=== PATIENT | male | born 1945 | race Caucasian/White ===

== ENCOUNTER → 2023-08-26 11:13 | Outpatient (REF) | payer MEDICARE, SELFPAY ==
[2023-08-26 12:12] LABS: % Eosinophils 2.7 % (0-6); % Immature Granulocytes 0.2 % (0-0.5); % Lymphocytes 29.7 % (20.5-51.1); % Monocytes 10.2 % (1.7-9.3); % Neutrophils 56.2 % (42.2-75.2); Absolute Eosinophils 0.1 10^3/uL (0-0.7); Absolute Lymphocytes 1.2 10^3/uL (1.2-3.4); Absolute Monocytes 0.4 10^3/uL (0.1-0.6); Absolute Neutrophils 2.3 10^3/uL (1.4-6.5); Hematocrit 45.1 % (39.0-52.0); Hemoglobin 15.2 g/dL (13.0-18.0); Mean Corp Hgb Conc. 33.7 g/dL (33.0-37.0); Mean Corpuscular Volume 91.9 fL (80.0-94.0); Nucleated Red Blood Cells % 0 % (-); Platelet Count 173 10^3/uL (130-400); Red Blood Cell Count 4.91 10^6/uL (4.70-6.10); Red Cell Dist. Width 13.2 % (11.5-14.5); White Blood Cell Count 4.1 10^3/uL (4.8-10.8)
[2023-08-26 12:33] LABS: NT-proBNP 299 pg/ml
[2023-08-26 12:36] LABS: ALT (SGPT) 27 U/L (0-50); AST (SGOT) 32 U/L (17-59); Albumin 4.4 g/dl (3.5-5.0); Alkaline Phosphatase 84 U/L (38-126); Blood Urea Nitrogen 19 mg/dl (9-20); Calcium 9.4 mg/dl (8.4-10.2); Carbon Dioxide 28 mmol/L (22-30); Chloride 106 mmol/L (98-107); Glucose 126 mg/dl (70-99); HDL Cholesterol 38 mg/dl; LDL Cholesterol, Calculated 100 mg/dl; Potassium 4.7 mmol/L (3.5-5.1); Sodium 140 mmol/L (135-145); Total Bilirubin 1.2 mg/dl (0.2-1.3); Total Cholesterol 163 mg/dl (50-199); Total Protein 7.5 g/dl (6.3-8.2); Triglyceride 128 mg/dl (10-149); Very Low Density Lipoprotein 25 mg/dl (0-30); eGFR > 60.00
[2023-08-26 13:06] LABS: PSA, Total - Screen 1.73 ng/ml (0.0-4.0); TSH 4.15 uIU/ml (0.47-4.68)
[2023-08-26 13:41] LABS: Urine Albumin Negative (Neg - Trace); Urine Bilirubin Negative (Negative); Urine Character Clear (Clear); Urine Color Yellow; Urine Glucose Negative (Negative); Urine Ketone Negative (Negative); Urine Leukocyte 1+ (Negative); Urine Nitrite Negative (Negative); Urine Occult Blood Trace (Negative); Urine Specific Gravity 1.015 (<1.030); Urine Urobilinogen Negative (Neg - 1+)
[2023-08-26 13:59] LABS: Urine Bacteria Few (Negative); Urine Red Blood Cell None Seen /HPF (0-2); Urine White Cell 0-2 /HPF (0-5)
[2023-08-27 11:06] LABS: Glycohemoglobin (HgbA1c) 7.1 % (4.0-5.6)
== END ==
LOC: REG 11:13
PROVIDERS: Internal Medicine Cardiovascular Disease; ATTENDING PHYSICIAN Internal Medicine
DX: I25.10 Atherosclerotic heart disease of native coronary artery without angina pectoris (principal); E66.01 Morbid (severe) obesity due to excess calories; K21.9 Gastro-esophageal reflux disease without esophagitis; I48.0 Paroxysmal atrial fibrillation; N40.1 Benign prostatic hyperplasia with lower urinary tract symptoms; Z12.5 Encounter for screening for malignant neoplasm of prostate; R73.09 Other abnormal glucose
CPT/HCPCS: 36415; 80053; 80061; 81003; 81015; 83036; 83880; 84443; 85025; G0103

== ENCOUNTER → 2023-09-16 12:36 | Outpatient (REF) | payer MEDICARE, SELFPAY | LOC: RCS 12:36 | PROVIDERS: ATTENDING PHYSICIAN Internal Medicine Cardiovascular Disease; FAMILY PHYSICIAN Internal Medicine | DX: I25.10 Atherosclerotic heart disease of native coronary artery without angina pectoris (principal); Z95.0 Presence of cardiac pacemaker; I48.0 Paroxysmal atrial fibrillation; Z79.01 Long term (current) use of anticoagulants | CPT/HCPCS: 93306 ==

== ENCOUNTER → 2023-09-20 11:26 | Outpatient (REF) | payer MEDICARE, SELFPAY | LOC: DHCBC/DCA 11:26 | PROVIDERS: ATTENDING PHYSICIAN Internal Medicine Cardiovascular Disease; FAMILY PHYSICIAN Internal Medicine | DX: I25.10 Atherosclerotic heart disease of native coronary artery without angina pectoris (principal); E78.2 Mixed hyperlipidemia; Z98.61 Coronary angioplasty status | CPT/HCPCS: 78452; 93017; A9500; J2785 ==

== ENCOUNTER 2023-10-11 00:50 | Inpatient (IN) | payer MEDICARE, SELFPAY ==
[2023-10-10] VITALS (12 sets, daily range): BP systolic 111–166; BP diastolic 70–98; BMI 35.5
[2023-10-10] MEDS: LOW STRENGTH ASPIRIN 324 MG PO (22:06)
[2023-10-10] MEDS: NITROSTAT (SUBLINGUAL) 0.400000000000000022 MG SL ×3 (22:06→22:29)
[2023-10-10 22:08] LABS: % Eosinophils 2.7 % (0-6); % Immature Granulocytes 0.2 % (0-0.5); % Lymphocytes 34.7 % (20.5-51.1); % Monocytes 13.3 % (1.7-9.3); % Neutrophils 48.1 % (42.2-75.2); Absolute Basophils 0.1 10^3/uL (0-0.2); Absolute Eosinophils 0.1 10^3/uL (0-0.7); Absolute Lymphocytes 1.8 10^3/uL (1.2-3.4); Absolute Monocytes 0.7 10^3/uL (0.1-0.6); Absolute Neutrophils 2.5 10^3/uL (1.4-6.5); Hematocrit 39.6 % (39.0-52.0); Hemoglobin 13.9 g/dL (13.0-18.0); Mean Corp Hgb Conc. 35.1 g/dL (33.0-37.0); Mean Corpuscular Hgb 31.2 pg (27.0-31.0); Mean Corpuscular Volume 88.8 fL (80.0-94.0); Mean Platelet Volume 9.4 fL (7.4-10.4); Nucleated Red Blood Cells % 0 % (-); Platelet Count 170 10^3/uL (130-400); Red Blood Cell Count 4.46 10^6/uL (4.70-6.10); White Blood Cell Count 5.1 10^3/uL (4.8-10.8)
[2023-10-10 22:21] LABS: ALT (SGPT) 26 U/L (0-50); AST (SGOT) 33 U/L (17-59); Albumin 4.4 g/dl (3.5-5.0); Alkaline Phosphatase 86 U/L (38-126); Blood Urea Nitrogen 20 mg/dl (9-20); Calcium 9.6 mg/dl (8.4-10.2); Carbon Dioxide 28 mmol/L (22-30); Chloride 102 mmol/L (98-107); Glucose 117 mg/dl (70-99); Potassium 4.3 mmol/L (3.5-5.1); Sodium 139 mmol/L (135-145); Total Bilirubin 1.1 mg/dl (0.2-1.3); Total Protein 7.4 g/dl (6.3-8.2); eGFR > 60.00
[2023-10-10] MEDS: NITROSTAT (SUBLINGUAL) SL (22:21)
[2023-10-10 22:22] LABS: APTT 34.6 Sec (23.4-35.0)
--- NOTE | 2023-10-10 22:34 | ED.GENMED ---
History of Present Illness
General
Chief Complaint: Chest Pain
Source: patient and family
Exam Limitations: none
Time Seen by Provider: 10/10/23 21:56
Travel History
Have you had any contact with someone who has COVID-19?: No
Do you have any symptoms of coronavirus? Fever > 100 degrees, chills, cough, shortness of breath, sore throat, loss of taste or smell, muscle aches, or headache?: No
History of Present Illness
History of Present Illness:
78-year-old male who presents with chest pain radiating to his jaw. Patient states he has a pain in his jaw. The pain did occur last night but he took his medications and fell asleep. The patient states that today he seemed to be okay but about
an hour prior to arrival he developed chest discomfort and pain in his jaw. He decided to come here for further evaluation. Pain is about an 8 out of 10.
Past History
Past History
ED Past Medical History: Arrthythmia (Atrial fib o Xarelto), CAD, HTN, Hypercholesterolemia and Other (hemmerhoids, diverticulosis, coronary artery disease status post stent, recent UTI, Bacterial Pneumonia, Shingles); Negative Cancer, CHF, COPD or
CVA
ED Past Surgical History: Appendectomy, Cardiac (stent), Orthopedic (R shoulder surg) and Other (Kidney surg,); Negative Bowel resection or Brain
Social History
Tobacco: Non-smoker
Alcohol: Occasional
Personal:
Living: with family
Employment: Employed
Family History
Family History: Diabetes and Other (Parostate CA, Alzheimer's)
Phy Exam
Physical Exam
Physical Exam:
CONSTITUTIONAL Patient alert and oriented to person, place and time. Well-appearing. Vital signs reviewed.
HEAD atraumatic, normocephalic.
EYES eyelids normal to inspection, Pupils equally round and reactive to light, Extraocular muscles intact, Conjunctiva normal, Sclera normal.
NECK normal range of motion, Trachea midline, no jugular venous distention.
RESPIRATORY CHEST No respiratory distress noted, Chest expansion equal, Bilateral breath sounds clear.
CARDIOVASCULAR regular rate and rhythm, Heart sounds normal.
ABDOMEN abdomen nontender, Bowel sounds normal. No distention.
BACK normal inspection, no obvious deformities
UPPER EXTREMITY range of motion normal, Motor strength normal, no cyanosis, no edema.
LOWER EXTREMITY range of motion normal, Motor strength normal, no cyanosis, no edema.
NEURO Speech normal, No focal motor deficits, [place] coma scale 15, Memory normal, Cranial Nerves intact to screening exam.
SKIN skin warm, dry, and normal in color.
.
Scores
Heart Score for Chest Pain Patients
STEMI patient?: No
History: Highly Suspicious
ECG: Significant ST-Depression
Age: >/= 65 years
Risk Factors: >/= 3 Risk Factors or History of CAD
Troponin: >1 - <3 x Normal Limit
Heart Score for Chest Pain Patients: 9
Heart Score Risk: 72.7 % MACE over next 6 weeks
Course
Orders/Labs/Results
Orders:
Orders
10/10/23 21:46
Electrocardiogram (*1) Urgent
Reason for Study: Chest Pain
10/10/23 21:47
EKG- Treatment ONCE
10/10/23 22:02
CMP [Comprehensive Metabolic Panel] Urgent
Complete Blood Count/With Diff Urgent
NT-proBNP Urgent
Comment: ADDED
PTT Urgent
Troponin I Urgent
10/10/23 22:05
Aspirin Chewable [Low Strength Aspirin] 324 mg PO NOW STA
10/10/23 22:06
Nitroglycerin Sublingual [Nitrostat (Sublingual)] 0.4 mg SL NOW STA
10/10/23 22:10
Nitroglycerin Sublingual [Nitrostat (Sublingual)] 0.4 mg SL [id number] PRN
03/24/24 22:25
ECG [Electrocardiogram (*1)] Urgent
Reason for Study: Chest Pain
EKG- Treatment ONCE
10/10/23 22:30
Add On- LAB Urgent
Tests Added?: bnp
10/10/23 22:41
Heparin 4,000 units IV NOW STA
Nursing to Place Non Medication Order As Directed
Physician Order: PTT 6 hours after initial start of Heparin infusion
Above order entered?: Yes
10/10/23 22:42
Metoprolol [Lopressor] 2.5 mg IV NOW STA
Nitroglycerin 100 mg/250 ml [Nitroglycerin Premix] 100 mg in 250 ml IV NOW
Initial dose in mcg/min, then titrate:: 5
Titrate to keep:: SBP < 160 mmHg
Titrate by mcg/min:: 5 mcg/min, may increase by 10 mcg/min if dose > 20 mcg/min
Frequency of titrations (minutes):: every 3-5 minutes
Maximum dose in mcg/min:: 200
Begin to taper infusion when:: Remained at goal for 2hrs
Taper by mcg/min:: 5 mcg/min
Frequency of taper (minutes) if patient maintains goal:: 30
Taper to off?: Yes
If infusion off & no longer maintaining goal:: Contact Provider
10/10/23 22:45
Heparin 49632 Units/250 ml 25,000 units in 250 ml IV PER PROTOCOL
Weight to be used for heparin protocol in kilograms (kg):: 118.5
Protocol:: Cardiac Tx/Acute Coronary
PTT Goal Range to be used:: PTT 73 to 111 seconds
Order type:: Initial
INITIAL Infusion Dose (UNITS/KG/hr) & then follow protocol:: 12 units/kg/hr
Infusion Dose in UNITS/hr & then follow protocol (UNITS/hr):: 1,000
INFUSION RATE in mL/hr & then follow protocol (mL/hr):: 10
PTT less than or equal to 64 seconds:: Increase rate by 200 units/hr (+ 2 mL/hr)
PTT 64.1 to 72.9 seconds:: Increase rate by 100 units/hr (+ 1 mL/hr)
PTT 73 to 111 seconds:: Target Range. No change in rate.
PTT 111.1 to 130.9 seconds:: Decrease rate by 100 units/hr (- 1 mL/hr)
PTT 131 to 199.9 seconds:: HOLD for 1 hr. Then decrease rate by 200 units/hr (- 2 mL/hr)
PTT greater than or equal to 200 seconds:: HOLD for 2 hrs & Notify Provider. Then decrease by 200 units/hr (-
2 mL/hr)
Lab follow-up:: Each change, PTT q6h until 2 consecutive are therapeutic. Then PTT
daily.
10/11/23 00:07
Admit/Transfer Patient As Directed
Co-Sign Provider:
Level of Care: Inpatient admission
Assign to:: IVU
Physician / Group: Davina/Hospitalist
Diagnosis: NSTEMI/ACS
Reason for Hospitalization: NSTEMI/ACS
Expected length of stay greater than two midnights?: Yes
ELOS- Estimated Length of Stay in days: 3
I certify the patient meets the requirements for IP care: Yes
10/11/23 00:13
Code Status As Directed
Resuscitation Status: Full Code
10/11/23 00:36
CR Chest Portable - 1 View Urgent
Comment:
Reason For Exam: cp
Reason Study Needs to be Portable: Patient Unstable
10/11/23 01:13
Electrocardiogram (*1) Q6H
Reason for Study: Chest Pain
Comment: at admission and Q3H for total of 3, to be done with each troponin
10/11/23 01:20
Troponin I Q3H
Comment: at admit & Q3H for 3 total including ED draws, obtain ECG with each level
10/11/23 01:47
0.9% Sodium Chloride 1000 ml [Nss] 1,000 ml IV 75 mls/hr
Nitroglycerin 100 mg/250 ml [Nitroglycerin Premix] 100 mg in 250 ml IV PER PROTOCOL
Currently infusing. Continue current dose and titrate:: Yes
Titrate to keep:: Chest Pain Free
Titrate by mcg/min:: 5 mcg/min, may increase by 10 mcg/min if dose > 20 mcg/min
Frequency of titrations (minutes):: 3-5 minutes
Maximum dose in mcg/min:: 200
Begin to taper infusion when:: Other
Begin to taper infusion when (other):: when patient has remained at goal for 24 hours
Taper by mcg/min:: 5 mcg/min
Frequency of taper (minutes) if patient maintains goal:: 30
Taper to off?: Yes
If infusion off & no longer maintaining goal:: Contact Provider
10/11/23 01:47
CARDIOLOGY CONSULT Routine
Consulting Provider: Nathan Mario
Was physician already notified: Yes
Reason for consult: NSTEMI/ACS/CP on NTG gtt/Hep gtt
Case Management Consult ONCE
Case Management Consult: Discharge Planning
Heparin Protocol- PTT Orders As Directed
PTT per Heparin protocol: -Obtain CBC and baseline PTT - if not already collected.
-Obtain PTT 6 hours from start of infusion. Then, every 6 hours until 2 consecutive
PTT's are therapeutic. Then, PTT Daily.
-With each rate change, obtain PTT every 6 hours until 2 consecutive PTT's are
therapeutic. Then, PTT Daily.
Activity As Directed
Activity Level: With Assistance
INT (Intravenous Needle Therapy) As Directed
Comment: maintain peripheral IV access
Intake/ Output As Directed
Frequency: Per unit guidelines
Notify MD As Directed
Notify physician if: PTT is greater than or equal to 200.
Pneumatic Compression Sleeves As Directed
Type: Knee high
Vital Signs As Directed
Frequency: q4h
Weight As Directed
Frequency: Daily
O2 Therapy [RESP] Routine
Nasal Cannula Liter Flow: 2 LPM
Titrate/Wean O2 to maintain O2 sat greater than (%): 90
Special Instructions: 2 liters/minute as needed for pulse oximetry less than 90%
Pulse Ox/spot Check [RESP] Routine
Quantity: 1
Special Instructions: on admission and then every shift if on oxygen
DX Deep Vein Thrombosis Video Routine
10/11/23 01:54
Lorazepam [Ativan] 0.5 mg PO HS PRN
10/11/23 04:13
Troponin I Q3H
Comment: at admit & Q3H for 3 total including ED draws, obtain ECG with each level
10/11/23 05:00
PTT Routine
10/11/23 Breakfast
NPO
Allow oral meds: Yes
Allow clear liquids: No
Basic Metabolic Panel IN AM
Complete Blood Count/No Diff IN AM
10/11/23 07:00
Levothyroxine [Synthroid] 50 mcg PO DAILY@0700
10/11/23 07:13
Electrocardiogram (*1) Q6H
Reason for Study: Chest Pain
Comment: at admission and Q3H for total of 3, to be done with each troponin
Troponin I Q3H
Comment: at admit & Q3H for 3 total including ED draws, obtain ECG with each level
10/11/23 08:00
Aspirin Chewable [Low Strength Aspirin] 81 mg PO DAILY
Carvedilol [Coreg] 3.125 mg PO BID
Rosuvastatin Calcium [Crestor] 40 mg PO DAILY
Sertraline HCl [Zoloft] 100 mg PO DAILY
10/11/23 13:13
Electrocardiogram (*1) Q6H
Reason for Study: Chest Pain
Comment: at admission and Q3H for total of 3, to be done with each troponin
10/13/23 06:00
Complete Blood Count/No Diff Q2D
Comment: notify provider: Platelet count < 130,000 or decrease by 50% from baseline
10/15/23 06:00
Complete Blood Count/No Diff Q2D
Comment: notify provider: Platelet count < 130,000 or decrease by 50% from baseline
10/17/23 06:00
Complete Blood Count/No Diff Q2D
Comment: notify provider: Platelet count < 130,000 or decrease by 50% from baseline
10/19/23 06:00
Complete Blood Count/No Diff Q2D
Comment: notify provider: Platelet count < 130,000 or decrease by 50% from baseline
10/21/23 06:00
Complete Blood Count/No Diff Q2D
Comment: notify provider: Platelet count < 130,000 or decrease by 50% from baseline
10/23/23 06:00
Complete Blood Count/No Diff Q2D
Comment: notify provider: Platelet count < 130,000 or decrease by 50% from baseline
10/25/23 06:00
Complete Blood Count/No Diff Q2D
Comment: notify provider: Platelet count < 130,000 or decrease by 50% from baseline
10/27/23 06:00
Complete Blood Count/No Diff Q2D
Comment: notify provider: Platelet count < 130,000 or decrease by 50% from baseline
Abnormal Lab Results
10/10/23
22:02
RBC 4.46 L 10^6/uL
(4.70-6.10)
MCH 31.2 H pg
(27.0-31.0)
Absolute Monos (auto) 0.7 H 10^3/uL
(0.1-0.6)
Monocytes % 13.3 H %
(1.7-9.3)
Glucose 117 H mg/dl
(70-99)
Troponin I 0.119 H* ng/ml
10/10/23 22:02
10/10/23 22:02
Vital Signs
Initial and Last Documented VS:
Initial Vital Signs
Pulse Resp Pulse Ox
73 13 96
10/10/23 21:53 10/10/23 21:53 10/10/23 21:53
Last Documented Vital Signs
Temp Pulse Resp BP Pulse Ox
97.8 F 70 16 106/72 96
10/11/23 01:57 10/11/23 01:30 10/11/23 01:57 10/11/23 01:30 10/11/23 01:57
MDM/Problems Addressed
MDM/Problems Addressed:
Unstable angina
*Pulse Oximetry
Patient hypoxic: no
*EKG
Interpreted by ED Provider?: Yes
Interpretation: abnormal
Rate: normal
Rhythm: av sequential
Ischemia: non-specific ST changes
*[employer] Interpretation
Rate: normal
Interpretation: abnormal
Rhythm: av sequential
*Critical Care Note
Total Time (30-74mins, 75-104mins- exclusive of procedures): 80 minutes
Data Reviewed
Review of Other/Old Records Reveals: Discharge Summary (Discharge summary from 2021 reviewed) and Other (Prior EKGs reviewed)
Source: patient and family
Further Testing Considered But Not Given:
Considered CT but suspect ACS as an etiology
Patient Management
Discussion with other providers: [employer] Operator (Case discussed with Dr. Mcwilliams) and Other (Case discussed with )
Escalation/DeEscalation of care consider admission/obs:
78-year-old with history of coronary disease who presents with chest pain and jaw pain. EKG certainly changed but is AV paced. Case was discussed with Dr. Green shortly after arrival and decision made to attempt to make the patient pain-free.
Patient is seen improvement with each dose of nitroglycerin. On reevaluation his pain is just about gone. Will trial IV nitroglycerin. Add heparin. Treat with aspirin and beta-blockade. Will continue to reassess and if pain persists or worsens
will again discussed with interventional cardiology. Case was also discussed with DCA. Agrees with plan thus far and will continue to monitor closely.
ED Attending Note
-
Portions of this chart may have been created with voice recognition software.� Occasional wrong word or��sound alike� substitutions may have occurred due to the inherent limitations of voice recognition software.
Discharge Plan
Departure
Patient Disposition: Admit
Date of Disposition: 10/10/23
Time of Disposition: 22:56
Admit to: IVU
Presentation/result/management discussed w/ accepting MD/DO: Hospitalist
Discharge Problem:
Acute coronary syndrome
Interventions
Interventions:
*Risk Screen - Suicide Last Done: 10/10/23 22:12
*General Assessment Last Done: 10/10/23 22:12
*Neglect/Abuse Screening Last Done: 10/10/23 22:12
ED- Fall Risk Assessment Last Done: 10/10/23 22:12
*ED COVID-19 Vaccine History Last Done: 10/10/23 22:12
*Nursing Disposition Last Done: 10/11/23 01:40
ED- Cardiac Assessment Last Done: 10/10/23 22:12
Discharge Date and Time
Discharge Date/Time: 10/11/23 01:40
[2023-10-10 22:38] LABS: Troponin I 0.119 ng/ml
[2023-10-10] MEDS: HEPARIN 4000 UNITS IV (22:51)
[2023-10-10] MEDS: LOPRESSOR 2.5 MG IV (22:51)
[2023-10-10] MEDS: NITROGLYCERIN PREMIX 250 IV (22:53)
[2023-10-10] MEDS: HEPARIN 25000 UNITS/250 ML IV (22:53)
[2023-10-10 23:00] LABS: NT-proBNP 444 pg/ml
--- NOTE | 2023-10-10 23:26 | HPS.HSE ---
Family Physician
-
Family Physician: Abelardo Strickland
Chief Complaint
-
CP
History of Present Illness
The patient is a 78 yo male with PMH significant for CAD, cardiac stents, pacemaker, A.fib on Xarelto, HTN, HLD, solitary kidney presents to the ED due to chest pain that started last night. He took an ativan and fell asleep, slept through the
night, and then started having substernal chest pain at rest radiating to his jaw both sides this evening again. Pain was persistent so he came to ED. Not associated with SOB nor palpitation, no fevers, no chills, no n/v/d, no abdominal complaints.
He had recent stress test and echocardiogram as per below. He has EKG changes in ED, trop elevated at 0.119, pain is persistent and patient started on ntg gtt titrated up to 20 with currently 0/10 pain. Cardiology discussed the patient with ED
provider.
ED txt:
aspirin 324, Lopressor 2.5 IV once, NTG gtt, NTG SL, Heparin gtt
Medical History
Past Medical History
Past Medical History: Reports Arrhythmia (A.fib on Xarelto), CAD, HTN, Hypercholesterolemia, Hypothyroidism and Other (diverticulosis, coronary artery disease status post stent, recent UTI, Bacterial Pneumonia, Shingles, solitary kidney)
Past Surgical History: Reports Appendectomy, Cardiac (stent), Orthopedic (right shoulder) and Other (kidney surgery decades ago for stones (congenital solitary kidney))
Social History
Tobacco: Non-smoker
Alcohol: Occasional
Personal:
Living: With Family
Family History
Family History: Cancer (prostate), Diabetes and Other (Alzheimers)
Allergies / Home Medications
Allergies reflects when Allergies were last updated in [facility] [employer]
Home Medications with original date entered in [facility]
Allergy/Medication List:
Allergies
Allergy/AdvReac Type Severity Reaction Status Date / Time
No Known Allergies Allergy Verified 06/25/22 15:22
Home Medications
carvedilol 6.25 mg tablet 3.125 mg PO BID Heart disease/condition 03/23/11
levothyroxine 50 mcg tablet (Euthyrox) 50 mcg PO DAILY@0700 Thyroid 12/22/21
sertraline 100 mg tablet 100 mg PO DAILY Mental Health/Anxiety 12/22/21
Lorazepam 0.5 mg PO HS PRN anxiety 12/30/21
rosuvastatin 10 mg tablet 40 mg PO DAILY High cholesterol 12/30/21
rivaroxaban 20 mg tablet (Xarelto) 20 mg PO HS Blood clot prevention/tx ##0 12/31/21
Review of Systems
-
A 12 point ROS was completed and negative except as noted: Yes
Physical Exam
Vital Signs
Vital Signs
Temp Pulse Resp BP Pulse Ox
98 F 72 18 117/73 95
10/10/23 21:55 10/10/23 22:45 10/10/23 22:45 10/10/23 22:45 10/10/23 22:45
Physical Exam
General: Well Developed, Well Nourished and No Apparent Distress
HEENT: NormoCephalic, Anicteric and Moist mucous membranes
Respiratory: Clear
Cardiac: S1/S2 and Regular Rhythm
GI: Soft, Non Tender, Non Distended and Normal Bowel Sounds
Musculoskeletal: No Clubbing, No Cyanosis and No Edema
Skin: Warm and Dry
Neuro: AO x 3 and No Motor Deficits
Psych: Calm
Laboratory Results
-
10/10/23 22:02
10/10/23 22:02
Laboratory Results
APTT Cancelled 10/10/23 22:41
Total Bilirubin 1.1 mg/dl (0.2-1.3) 10/10/23 22:02
AST 33 U/L (17-59) 10/10/23 22:02
ALT 26 U/L (0-50) 10/10/23 22:02
Alkaline Phosphatase 86 U/L (38-126) 10/10/23 22:02
Troponin I 0.119 ng/ml H* 10/10/23 22:02
Data Reviewed
-
Medical Tests (Nuc Med, Echo, EKG etc): Image Personally Visualized and interpreted (AV paced ST changes from prior) and Report Reviewed by me
Impression/Plan
-
IMPRESSION:The patient is a 78 yo male with PMH significant for CAD, cardiac stents, pacemaker, A.fib on Xarelto, HTN, HLD, solitary kidney presents to the ED due to chest pain that started last night. He took an ativan and fell asleep, slept
through the night, and then started having substernal chest pain at rest radiating to his jaw both sides this evening again. He has EKG changes in ED, trop elevated at 0.119, Cardiology discussed the patient with ED provider.
ED txt:
aspirin 324, Lopressor 2.5 IV once, NTG gtt, NTG SL, Heparin gtt
#ACS concerning for NSTEMI - persistent chest pain despite NTG gtt, CP currently 0/10 after uptitration of NTG gtt
-Admit IVU telemetry monitoring
-Cardiology (Oj and Fabiano notified) discussed with ED provider: If CP persists or returns, Guidera to take to supervisor dental laboratory tonight. Currently pt is CP free.
-will keep NPO, gentle IVF
-cont NTG gtt per protocol
-hold Xarelto and continue heparin gtt
-serial EKG, serial trop
-aspirin, beta maria ines, statin
Chronic medical issues:
#CAD s/p PCI to ramus- Coronary artery disease with previous LAD stenting in 2001, redo LAD stenting in 2014 and ramus stenting in 2020.
-Echo 09/16/23 - EF 50-55%, normal LV, mild concentric left ventricular hypertrophy, pacer wire RV & RA, no sign valvular dx
-Nuclear Stress 09/20/23 Inconclusive EKG for ischemia given pharmacological study, fixed defect in basal inferoseptal, mild inferoseptal, apex and apical inferior segments c/w infarction vs soft tissue attenuation, EF 52% normal systolic fxn,
moderate risk study 1-3% [place] or /year)
#Hyperglycemia-HgbA1C recently 7.1, monitor repeat glucose in am, many need SSI
#Hypothyroidism
-continue Synthroid
#Mixed HLD
-statin
#Hx Renal Calculi
#Long-term use of anticoagulation
#Obesity
#Paroxysmal atrial fibrillation with chronic oral anticoagulant therapy
-continue coreg
-hold Xarelto on hep gtt
#Congenital solitary kidney
#MAURO
#Essential HTN
#Non reversible symptomatic bradycardia. LINQ was implanted in September of 2021 Status post dual-chamber permanent pacemaker implant, 12/30/2021
#History of syncope and falls with prior subdural hematoma
#Status post LINQ explant, 12/30/2021.
#Depression
DVT proph-hep gtt
Full Code
[2023-10-11] VITALS (26 sets, daily range): BP systolic 101–149; BP diastolic 56–96; BMI 33.9
[2023-10-11] MEDS: NSS 1000 IV ×2 (02:41→13:54)
--- NOTE | 2023-10-11 03:47 | PTCARENOTE ---
Received from the ED at 0150. Denies any chest pain or discomfort. NTG drip infusing at 20 mcg/min, Heparin infusing at 1000 units/hr. A-V Paced on the monitor. Aware he is NPO xcept po meds. Fine expiratory wheeze at times, patient stated he has
post nasal drip. Sleeping at present.
[2023-10-11 05:18] LABS: Hematocrit 36.1 % (39.0-52.0); Hemoglobin 12.3 g/dL (13.0-18.0); Mean Corp Hgb Conc. 34.1 g/dL (33.0-37.0); Mean Corpuscular Hgb 31.1 pg (27.0-31.0); Mean Corpuscular Volume 91.4 fL (80.0-94.0); Mean Platelet Volume 9.8 fL (7.4-10.4); Platelet Count 142 10^3/uL (130-400); Red Blood Cell Count 3.95 10^6/uL (4.70-6.10); Red Cell Dist. Width 13.1 % (11.5-14.5)
[2023-10-11 05:31] LABS: APTT 138.6 Sec (23.4-35.0)
[2023-10-11 05:44] LABS: Blood Urea Nitrogen 21 mg/dl (9-20); Calcium 9.1 mg/dl (8.4-10.2); Carbon Dioxide 23 mmol/L (22-30); Chloride 107 mmol/L (98-107); Estimated Creatinine Clearance 116 ml/min; Glucose 124 mg/dl (70-99); Sodium 138 mmol/L (135-145); eGFR > 60.00
[2023-10-11] MEDS: SYNTHROID 50 MCG PO (07:26)
[2023-10-11] MEDS: LOW STRENGTH ASPIRIN 81 MG PO (09:18)
[2023-10-11] MEDS: COREG 3.125 MG PO ×2 (09:19→20:27)
[2023-10-11] MEDS: ZOLOFT 100 MG PO (09:19)
[2023-10-11] MEDS: CRESTOR 40 MG PO (09:19)
--- NOTE | 2023-10-11 09:45 | CON.CAR ---
Addendum entered and electronically signed by Oziel Aguirre DO 10/11/23 11:09:
I saw and examined the patient.
The Energy Specialist's note was reviewed and I agree with the note.
Comment:
Plan:
Presentation consistent with NSTEMI with trop 8 and trending.
Cont to trend until peak
Cont IV heparin
EKG with AV pacing.
IV nitro
Check echo
Discussed left heart cath to eval coronary anatomy. He has hx of multivessel PCI. He is agreeable.
Reviewed with interventional cardiology.
HPI: Patient came to [facility] last night with chest pain that started on Wednesday and cardiology is consulted for NSTEMI. Patient says that he read a stressful letter on Wednesday and then developed a substernal chest pain. The pain would come and go and
radiated to his jaw. The pain became increasingly intense and then was constant so he came to [facility] last night. Initial Troponin was 0.119 and is now up to 8.04. He had ongoing pain with heparin gtt so a Nitro gtt was started and he is now pain free.
Patient with a h/o PCI. He complained of fatigue at office visit 07/15/23 and was sent to echo and Lexiscan mibi as noted above.
Original Note:
Consultation
Consultation Request
Date/Time Consultation Requested: 10/11/23 at 0147
Date/Time Consultation Performed: 10/11/23 at 0900
Requesting Provider: Dr. Patricio
Performing Provider: Dr. Aguirre
Reason for Consultation: Chest pain, NSTEMI
Medical History
-
History of Present Illness:
Patient came to [facility] last night with chest pain that started on Wednesday and cardiology is consulted for NSTEMI. Patient says that he read a stressful letter on Wednesday and then developed a substernal chest pain. The pain would come and go and
radiated to his jaw. The pain became increasingly intense and then was constant so he came to [facility] last night. Initial Troponin was 0.119 and is now up to 8.04. He had ongoing pain with heparin gtt so a Nitro gtt was started and he is now pain free.
Patient with a h/o PCI. He complained of fatigue at office visit 07/15/23 and was sent to echo and Kamillean mibi as noted above.
PMH:
CAD
s/p LAD PCI 2001
s/p LAD PCI 03/2015
Ramus PCI 2019
s/p Medtronic DC PPM 2021
Non reversible symptomatic bradycardia
Paroxysmal Afib
Chronic Xarelto OAC, last dose 10/10/23 PM
Solitary Kidney
obesity
HTN
HLD
MAURO
Depression
Past Medical History
Past Medical History: Other (in HPI)
Past Surgical History: Appendectomy, Cardiac (PPM 12/2021, LAD and Ramus PCI) and Tonsilectomy
Social History
Tobacco: Former Smoker
Alcohol: Occasional (2-3 times a week)
Drug: None
Personal:
Living: With Family
Employment: Retired (retired from pharm)
Family History
Family History: CAD, Diabetes and Hypertension
Allergies / Home Medications
Allergy/AdvReac Type Severity Reaction Status Date / Time
No Known Allergies Allergy Verified 06/25/22 15:22
Medication Instructions Recorded Confirmed Type
carvedilol 6.25 mg tablet 3.125 mg PO BID Heart 03/23/11 10/11/23 History
disease/condition
levothyroxine 50 mcg tablet 50 mcg PO DAILY@0700 Thyroid 12/22/21 10/11/23 History
(Euthyrox)
sertraline 100 mg tablet 100 mg PO DAILY Mental 12/22/21 10/11/23 History
Health/Anxiety
Lorazepam 0.5 mg PO HS PRN anxiety 12/30/21 10/11/23 History
rosuvastatin 10 mg tablet 40 mg PO DAILY High cholesterol 12/30/21 10/11/23 History
rivaroxaban 20 mg tablet (Xarelto) 20 mg PO HS Blood clot 12/31/21 10/11/23 Rx
prevention/tx ##0
Review of Systems
-
History Source: Patient
All other systems: Negative unless noted
Physical Exam
Vital Signs
Temp Pulse Resp BP Pulse Ox
97.7 F 70 18 111/75 94
10/11/23 07:27 10/11/23 09:19 10/11/23 07:27 10/11/23 09:19 10/11/23 07:27
GEN: NAD, AAOx3
HEENT: EOMI, MMM
LUNGS: CTA B/L, no wheezes or rales
CV: Reg, no murmur
ABD: soft, BS+, NT, ND
EXT: No clubbing, cyanosis, lesions or edema B/L
NEURO: Gross non-focal
SKIN: Warm, dry and pink. No rash
Lab Results
10/11/23 05:04
10/11/23 05:04
Troponin I 8.040 ng/ml H* D 10/11/23 08:51
Rxi-H-Lhpeucebzvv Pept 444 pg/ml 10/10/23 22:02
Impression / Plan
-
PCP: Abelardo Kendrick MD
CDY: Scott Mcgrath MD
IMPRESSION:
Chest pain
NSTEMI, Troponin 8.04 and trending
CAD
s/p LAD PCI 2001
s/p LAD PCI 03/2015
Ramus PCI 2019
s/p Medtronic DC PPM 2021
Non reversible symptomatic bradycardia
Paroxysmal Afib
Chronic Xarelto OAC, last dose 10/10/23 PM
Solitary Kidney
obesity
HTN
HLD
MAURO
Depression
Lexiscan mibi 09/21/23: EF 52%, mildly decreased perfusion that is fixed in the basal inferoseptal segment, mid inferoseptal segement apex and apical inferior segments consistent with infarction vs soft tissue attenuation and improved with prone
imaging
Echo 09/16/23: EF 50-55%, mild conc LVH, no significant valve disease
PLAN:
-Patient came to [facility] last night with chest pain that started on Wednesday and cardiology is consulted for NSTEMI. Patient says that he read a stressful letter on Wednesday and then developed a substernal chest pain. The pain would come and go and
radiated to his jaw. The pain became increasingly intense and then was constant so he came to [facility] last night. Initial Troponin was 0.119 and is now up to 8.04. He had ongoing pain with heparin gtt so a Nitro gtt was started and he is now pain free.
Patient with a h/o PCI. He complained of fatigue at office visit 07/15/23 and was sent to echo and Lexiscan mibi as noted above.
-Chest pain that has improved on Heparin and Nitro gtt overnight
-Troponin trending up to 8.04 this AM
-ECG reviewed by me is paced
-Talked with patient about cardiac cath given chest pain, elevated Troponin and h/o CAD and he is agreeable.
-Last dose of Xarelto was last night
- EF was preserved by echo 09/16/23. Recheck limited study
-Cont usual dose of Coreg 3.125 mg BID
-Check CVE. Cont usual dose of Crestor 40 mg daily
[2023-10-11 11:26] LABS: HDL Cholesterol 31 mg/dl; LDL Cholesterol, Calculated 44 mg/dl; Total Cholesterol 102 mg/dl (50-199); Triglyceride 137 mg/dl (10-149); Very Low Density Lipoprotein 27 mg/dl (0-30)
--- NOTE | 2023-10-11 12:19 | CM ---
spoke to pt in room, he is prev indep, lives with his in an apt with an elevator. he denies any dc planning needs. he uses a cane when needed. plan is for dc to home when medically stable.
--- NOTE | 2023-10-11 13:27 | ITS.CL.CATH ---
Process Chemist - Catheterization
Cardiac Catheterization
Procedure Report:
CARDIAC CATHETERIZATION REPORT
Date of Procedure: 10/11/2023
Referring: Oziel Aguirre DO
Indication: Non-STEMI (troponin 8.0)
HEMODYNAMIC DATA
AO: 125/72
LV: 125/17
LEFT VENTRICULOGRAPHY: Mid inferior hypokinesis with EF 49%
CORONARY ANGIOGRAPHY
Dominance: Right
Left Main: Normal
LAD: There is a long stented segment extending from the proximal LAD into the mid vessel with no significant restenosis. There is 40% in the mid LAD distal to the stented segment
Circumflex: There is a large previously stented ramus intermedius branch with no restenosis in the stented segment. There is mild luminal disease in the circumflex system
RCA: The RCA is dominant with mild luminal irregularities. The PDA is a small to medium sized vessel and the RCA terminates with two right posterolateral branches-the small first right posterolateral branch has 70% proximal stenosis and the
significantly larger second right posterolateral branch has mild luminal disease.
Closure Device: None-the procedure was performed via the right radial artery. The Kamlesh's test was normal prior to the procedure.
Radiation (mGy): 348
DAP (cm2.Gy): 24.5
Fluoroscopy time: 3.2 minutes
CONCLUSIONS
1: Non-STEMI presentation (troponin 8)
2: Mid inferior hypokinesis with EF 49%
3. CAD as described above. The stents remotely placed in the LAD and ramus intermedius branches remain patent. The culprit for his non-STEMI was likely the small first right posterolateral branch. Prefer to treat this small branch vessel
medically
Copy to: Scott Mcgrath MD, Abelardo Strickland,
Braxton Mcwilliams MD, [facility], [facility]
--- NOTE | 2023-10-11 16:09 | W.PN.HOSP.TC ---
Addendum entered and electronically signed by Gerry Patricio MD 10/11/23 21:49:
Attending Addendum-
I saw and evaluated the patient. I reviewed the resident�s note and agree with findings and plan as documented in the resident�s note. Complains of PUCKETT and flushing, Full 12 point ROS reviewed and negative except as documented Exam: gen NAD heart
irreg irreg lungs clear abd soft LE no edema Plan:
# ACS/NSTEMI/CAD- cath 10/10- Dr. Mcwilliams reviewed notes, culprit PL branch RCA- cont medical management, asa BB statin, appreciate cards input monitor on tele, trops trending down, CBC BMP in am
# Atrial fib- cont xarelto, rate controlled with coreg, monitor on tele
# DM- recently diagnosed, attempted lifestyle modification, last a1c 7.1, will likely start metformin as OP hold as just had cath, cont SSI accucheck q ac q hs cont gentle fluids- BMP in am
# HLD- cont meds
# HTN- cont meds
# Hypothyroidism- cont meds
# Anxiety- prn ativan- would avoid use as OP
# Depression- cont meds
Dispo- likely DC in am
Time spent coordinating care, review of plan of care with resident, review of records, med rec, consults, notes, labs, rads, d/w nursing � 51 mins
Original Note:
Documented by User: Domingo Waterman MD, Resident 10/11/23 17:47
Today's Communication/Plan
-
Cardiac catheterization 10/11/2023
Low-dose insulin sliding scale
Monitor blood glucose
Assessment / Plan
Assessment / Plan
Impression
Acute coronary syndrome concerning of non-STEMI
Hyperglycemia
Headaches
Hypothyroidism
Hyperlipidemia
Paroxysmal atrial fibrillation
Pacemaker placement
Plan :
Acute coronary syndrome concerning of non-STEMI
Chest pain-free
Continue gentle IVF
Left heart cardiac catheterization on 10/11/23
Continue IV nitroglycerin
IV heparin
Monitor serial troponin levels
Serial EKG
Possible d/c tomorrow if the patient remains asymptomatic
Cardiac catherization CONCLUSIONS-
1: Non-STEMI presentation (troponin 8)
2: Mid inferior hypokinesis with EF 49%
3.� CAD as described above.� The stents remotely placed in the LAD and ramus intermedius branches remain patent.� The culprit for his non-STEMI was likely the small first right posterolateral branch.� Prefer to treat this small branch vessel
medically
Hyperglycemia
Started on low-dose insulin sliding scale
A1c 7.1, blood glucose 127
Monitor blood glucose level
Headaches
Potentially due to nitroglycerin
Ordered Tylenol
Hypothyroidism
Continue Synthroid
Hyperlipidemia
Continue statin
Paroxysmal atrial fibrillation
continue carvedilol for rate control
Hold Xarelto
#Permanent pacemaker on 12/30/21
DVT prophylaxis-heparin
Anticipated Discharge: 24 - 48 hours
Subjective/Interval History
-
Date of Service: October 11, 2023
Patient complains of headache.
Patient was diagnosed with diabetes mellitus type 2 Per PCP. He was tested 2 months ago and was advised metformin per PCP.Patient was more keen on diabetic teaching and exercise approach rather than taking medication
Objective Data
-
Labs:
Laboratory Results
10/11/23 10/11/23 10/11/23
05:04 05:05 12:45
WBC 5.0
Hgb 12.3 L
Hct 36.1 L
Plt Count 142
APTT 138.6 H Pending
Sodium 138
Potassium 4.0
Chloride 107
Carbon Dioxide 23
BUN 21 H
Creatinine 0.7
Glucose 124 H
Calcium 9.1
Vital Signs:
Vital Signs
Temp Pulse Resp BP Pulse Ox
97.7 F 70 18 109/64 98
10/11/23 15:41 10/11/23 12:00 10/11/23 15:41 10/11/23 11:16 10/11/23 15:41
I&O
10/10/23 10/11/23 10/12/23
06:59 06:59 06:59
Intake Total 300 / 300 473.0 / 473.0
Output Total 200 / 200
Balance 300 / 300 273.0 / 273.0
Review of Systems
-
History Source: Patient
All other systems: Reviewed and negative (Except mentioned)
Neuro: Reports Headache
Physical Exam
-
General: Well Developed and Well Nourished
HEENT: Normocephalic and Atraumatic
Respiratory: Clear to Auscultation
Cardiac: Regular Rhythm and S1/S2
GI: Soft, Nontender and Nondistended
Musculoskeletal: No Edema
Skin: Other (Flushed face potentially due to nitroglycerin)
Neuro: AO x 3
Psych: Calm
Data Reviewed
-
Labs: Labs Reviewed by me and Discussed with Physician

Documented by User: Gerry Patricio MD 10/11/23 21:34
Review of Systems
-
All other systems: Reviewed and negative (Except mentioned 12 point reviewed)
[2023-10-11 18:23] LABS: Glucose - Point of Care 113 mg/dl (70-99)
[2023-10-11] MEDS: XARELTO 20 MG PO (20:26)
[2023-10-11 22:19] LABS: Glucose - Point of Care 135 mg/dl (70-99)
--- NOTE | 2023-10-12 01:48 | PTCARENOTE ---
assumed care at 1900. AAOx3. denies any cp/sob. ambulating in the room independently, steady. LITHOGRAPHIC ETCHER on tele 70s-80s. bp stable. R radial site CDI, + pulses. 95% on RA. reviewed plan of care with patient and verbalized understanding. educated patient
to inform RN with any changes. call renae within reach.
[2023-10-12 02:24] VITALS: BP 153/95
[2023-10-12 02:55] LABS: % Basophils 0.7 % (0-2); % Eosinophils 3.3 % (0-6); % Immature Granulocytes 0.2 % (0-0.5); % Lymphocytes 25.7 % (20.5-51.1); % Neutrophils 58.1 % (42.2-75.2); Absolute Eosinophils 0.2 10^3/uL (0-0.7); Absolute Lymphocytes 1.6 10^3/uL (1.2-3.4); Absolute Monocytes 0.7 10^3/uL (0.1-0.6); Absolute Neutrophils 3.6 10^3/uL (1.4-6.5); Hematocrit 39.2 % (39.0-52.0); Hemoglobin 13.7 g/dL (13.0-18.0); Mean Corp Hgb Conc. 34.9 g/dL (33.0-37.0); Mean Corpuscular Hgb 30.9 pg (27.0-31.0); Mean Corpuscular Volume 88.3 fL (80.0-94.0); Nucleated Red Blood Cells % 0 % (-); Platelet Count 166 10^3/uL (130-400); Red Blood Cell Count 4.44 10^6/uL (4.70-6.10); White Blood Cell Count 6.1 10^3/uL (4.8-10.8)
[2023-10-12 03:00] LABS: Blood Urea Nitrogen 16 mg/dl (9-20); Calcium 9.2 mg/dl (8.4-10.2); Carbon Dioxide 23 mmol/L (22-30); Chloride 111 mmol/L (98-107); Estimated Creatinine Clearance 116 ml/min; Glucose 115 mg/dl (70-99); Potassium 4.2 mmol/L (3.5-5.1); Sodium 139 mmol/L (135-145); eGFR > 60.00
[2023-10-12 06:00] VITALS: BMI 33.4
[2023-10-12 07:04] VITALS: BP 132/73
[2023-10-12 07:04] LABS: Glucose - Point of Care 118 mg/dl (70-99)
[2023-10-12] MEDS: SYNTHROID 50 MCG PO (07:16)
--- NOTE | 2023-10-12 08:13 | W.PN.CARDCBS ---
Today's Communication / Plan
-
Doing well
Med changes as recommended below
Okay for discharge this afternoon if stable
Impression / Plan
-
PCP: Abelardo Kendrick MD
CDY: Scott Mcgrath MD
IMPRESSION:
Chest pain
NSTEMI, Troponin 8.04 and trending
CAD
s/p LAD PCI 2001
s/p LAD PCI 03/2015
Ramus PCI 2019
s/p Medtronic DC PPM 2021
Non reversible symptomatic bradycardia
Paroxysmal Afib
Chronic Xarelto OAC, last dose 10/10/23 PM
Solitary Kidney
obesity
HTN
HLD
MAURO
Depression
Lexiscan mibi 09/21/23: EF 52%, mildly decreased perfusion that is fixed in the basal inferoseptal segment, mid inferoseptal segement apex and apical inferior segments consistent with infarction vs soft tissue attenuation and improved with prone
imaging
Echo 09/16/23: EF 50-55%, mild conc LVH, no significant valve disease
Cardiac catheterization 10/11/2023: Normal left main, long proximal to mid LAD stent widely patent with 40% mid LAD stenosis, widely patent ramus stents, luminal irregularities of the circumflex, dominant RCA, small to medium PDA, small first right
posterolateral with 70% stenosis presumably the culprit, managed medically
Plan:
He appears stable, with a peak troponin of approximately 8. He is not having chest discomfort at the present time.
His heart rate is in the 80s. Will increase carvedilol to 6.25 mg twice daily.
His last LDL was in the 80s. Will add ezetimibe.
Given a non-ST segment elevation MA on Xarelto, without aspirin with a history of PCI, will switch his anticoagulant/antiplatelet regimen to Xarelto 15 mg with Plavix 75 mg daily. Continue aspirin for 3 weeks and then discontinue
We will arrange for cardiac follow-up.
I would ambulate him this morning, and if he is feeling well could be discharged in mid to late afternoon.
Follow-up echo study is pending at this time.
Recommended cardiac medications at discharge:
Aspirin 81 mg a day for 3 weeks, then discontinue
Carvedilol 6.25 mg twice daily (higher dose)
Rosuvastatin 40 mg a day
Rivaroxaban 15 mg a day (lower dose)
Plavix 75 mg daily
Ezetimibe 10 mg daily
Progress Note - Patient Care Associate
Subjective
Date of Service: October 12, 2023:
Allergies: None
outpatient meds: Carvedilol 3.125 mg twice daily, levothyroxine, Ativan, rosuvastatin 40 mg a day, sertraline, Xarelto 20 mg daily
Current meds: Aspirin 81 mg a day, new, carvedilol 3.125 mg twice daily, levothyroxine 50 mcg a day, rosuvastatin 40 mg a day, sertraline 100 mg a day, rivaroxaban 20 mg a day
PMH/PSH/SH/FH: Reviewed
Review of systems negative except as above
Hemoglobin 13.7, potassium 4.2, BUN and creatinine 16 and 0.7, peak troponin 8.0 LDL 44, previously 100, 82, proBNP 444
ECG AV paced, probable left bundle lead,
Objective
Labs:
10/12/23 02:25
10/12/23 02:25
Labs
Hgb 13.7 g/dL (13.0-18.0) 10/12/23 02:25
Hct 39.2 % (39.0-52.0) 10/12/23 02:25
Plt Count 166 10^3/uL (130-400) 10/12/23 02:25
APTT Cancelled 10/11/23 12:45
Sodium 139 mmol/L (135-145) 10/12/23 02:25
Potassium 4.2 mmol/L (3.5-5.1) 10/12/23 02:25
BUN 16 mg/dl (9-20) 10/12/23 02:25
Creatinine 0.7 mg/dL (0.7-1.3) 10/12/23 02:25
Glucose 115 mg/dl (70-99) H 10/12/23 02:25
Troponins
10/10/23 10/11/23 10/11/23
22:02 01:20 05:04
Troponin I 0.119 H* 1.420 H* D 6.010 H* D
10/11/23 10/11/23 10/12/23
08:51 16:57 02:25
Troponin I 8.040 H* D 5.650 H* 3.540 H*
Vital Signs and I&O:
Vital Signs
Temp Pulse Resp BP Pulse Ox
36.9 C 72 16 132/73 94
10/12/23 07:04 10/12/23 08:00 10/12/23 07:04 10/12/23 07:04 10/12/23 07:04
Vital Signs
Temp Pulse Resp BP Pulse Ox
36.9 C 72 16 132/73 94
10/12/23 07:04 10/12/23 08:00 10/12/23 07:04 10/12/23 07:04 10/12/23 07:04
Intake & Output
10/10/23 10/11/23 10/12/23 10/13/23
07:59 07:59 07:59 07:59
Intake Total 300 / 300 1608.0 / 1608.0
Output Total 600 / 600
Balance 300 / 300 1008.0 / 1008.0
Physical Exam
Physical Exam
132/73, pulse 72,
Head neck exam unremarkable, lungs clear, regular rate and rhythm with soft systolic murmur, abdomen benign, extremities without clubbing cyanosis or edema distal pulses intact, neuro nonfocal
[2023-10-12] MEDS: LOW STRENGTH ASPIRIN 81 MG PO (08:14)
[2023-10-12] MEDS: COREG 3.125 MG PO (08:14)
[2023-10-12] MEDS: ZOLOFT 100 MG PO (08:14)
[2023-10-12 08:43] LABS: Glycohemoglobin (HgbA1c) 6.9 % (4.0-5.6)
[2023-10-12] MEDS: PLAVIX 300 MG PO (09:37)
--- NOTE | 2023-10-12 10:25 | W.PN.HOSP.TC ---
Addendum entered and electronically signed by Gerry Patricio MD 10/12/23 23:16:
Attending Addendum-
I saw and evaluated the patient. I reviewed the resident�s note and agree with findings and plan as documented in the resident�s note. no complaints want to go home. Full 12 point ROS reviewed and negative except as documented Exam: gen NAD heart
irreg irreg lungs clear abd soft LE no edema�right wrist site CDI pulses intact Plan:
# ACS/NSTEMI/CAD- cath 10/10- Dr. Mcwilliams reviewed cath with Dr. Mcgrath, culprit PL branch RCA- cont medical management, asa plavix x 3 weeks then dc asa, increase BB, cont xarelto and statin- add zetia, appreciate cards input trops trending down
# Atrial fib- cont xarelto, rate controlled, increase coreg
# DM- recently diagnosed, attempted lifestyle modification, Hba1c 6.9, start metformin as OP wait 48 hours
# HLD- cont meds add zetia
# HTN- cont meds increase coreg
# Hypothyroidism- cont meds
# Anxiety- prn ativan- would avoid use as OP
# Depression- cont meds
Dispo- DC home today
Time spent coordinating care, review of plan of care with resident, review of records, med rec, consults, notes, labs, rads, d/w nursing, cards PCP updated, DC planning � 38 mins
Original Note:
Today's Communication/Plan
-
Discharge planning
Assessment / Plan
Assessment / Plan
Impression
Acute coronary syndrome concerning of non-STEMI
Hyperglycemia
Headaches
Hypothyroidism
Hyperlipidemia
Paroxysmal atrial fibrillation
Pacemaker placement
Plan :
Acute coronary syndrome concerning of non-STEMI
Left heart cardiac catheterization on 10/11/23- culprit PL RCA
Plan to discharge today
Medical management of ACS with antiplatelet/anticoagulant therapy including aspirin for 3 weeks then discontinue, start Plavix 75, Xarelto 15
Beta-maria ines, carvedilol increased to 6.25
Zetia 10 mg cholesterol-lowering
Follow-up with outpatient cardiology
Possible d/c tomorrow if the patient remains asymptomatic
Cardiac catherization CONCLUSIONS-
1: Non-STEMI presentation (troponin 8)
2: Mid inferior hypokinesis with EF 49%
3.� CAD as described above.� The stents remotely placed in the LAD and ramus intermedius branches remain patent.� The culprit for his non-STEMI was likely the small first right posterolateral branch.� Prefer to treat this small branch vessel
medically
Type 2 diabetes mellitus
A1c 7.1, blood glucose 127
Metformin 500 mg twice daily. Hold metformin for 48 hours after discharge as the patient had cardiac catheterization. Renal function okay.
Follow-up outpatient with PCP Abelardo Kendrick MD
Monitor blood glucose level at home
Hypothyroidism
Continue Synthroid
Hyperlipidemia
Continue statin
Paroxysmal atrial fibrillation
Continue Xarelto
Carvedilol for rate control
Follow-up cardiology outpatient
#Permanent pacemaker on 12/30/21
DVT prophylaxis-heparin
Anticipated Discharge: Today
Subjective/Interval History
-
Date of Service: October 12, 2023
Patient denies SOB, CP.
Objective Data
-
Labs:
Laboratory Results
10/11/23 10/12/23
12:45 02:25
WBC 6.1
Hgb 13.7
Hct 39.2
Plt Count 166
APTT Cancelled
Sodium 139
Potassium 4.2
Chloride 111 H
Carbon Dioxide 23
BUN 16
Creatinine 0.7
Glucose 115 H
Calcium 9.2
Vital Signs:
Vital Signs
Temp Pulse Resp BP Pulse Ox
98.4 F 81 16 132/73 94
10/12/23 07:04 10/12/23 08:14 10/12/23 07:04 10/12/23 08:14 10/12/23 07:04
I&O
10/11/23 10/12/23 10/13/23
06:59 06:59 06:59
Intake Total 300 / 300 1608.0 / 1608.0
Output Total 600 / 600
Balance 300 / 300 1008.0 / 1008.0
Review of Systems
-
History Source: Patient
All other systems: Reviewed and negative
Physical Exam
-
General: Well Developed and Obese
HEENT: Normocephalic and Atraumatic
Respiratory: Clear to Auscultation
Cardiac: Regular Rhythm and S1/S2
GI: Soft, Nontender and Nondistended
Musculoskeletal: No Edema
Neuro: AO x 3
Psych: Calm
Data Reviewed
-
Labs: Labs Reviewed by me and Discussed with Physician
[2023-10-12] MEDS: CRESTOR 40 MG PO (10:31)
[2023-10-12] MEDS: CRESTOR PO (10:31)
[2023-10-12 11:03] LABS: Glucose - Point of Care 145 mg/dl (70-99)
[2023-10-12 11:51] VITALS: BP 115/98
--- NOTE | 2023-10-12 14:03 | W.DCSUMMARY ---
Addendum entered and electronically signed by Gerry Patricio MD 10/12/23 23:17:
Read, reviewed, and agree.
Pancho Patricio MD
Original Note:
Documented by User: Domingo Waterman MD, Resident 10/12/23 14:20
Discharge Summary
Discharge Data
Date of Admission: 10/11/23
Date of Discharge: 10/12/23
-
Pending Results: No
Hospital Course
Discharge diagnosis
ACS/non-STEMI/CAD
Type 2 diabetes mellitus
Paroxysmal atrial fibrillation
Hypertension
Hypothyroidism
Hospital course
78-year-old male presented to the ED with substernal chest pain radiating to his jaw on both sides. Vitals in ED were stable. Patient was started on nitroglycerin IV titrated up to 20 mg, aspirin 324 , Lopressor 2.5 , heparin GTT as troponin was
rising. Cardiology was consulted. EKG showed non-STEMI I. Patient was transferred to IVU telemetry patient continued to have chest pain persistently. . Cardiology decided for cardiac catheterization. Patient was kept n.p.o. with gentle IVF
overnight. Xarelto was held and heparin continued. Cardiac catheterization was done at 10/11/23 in which the culprit was a posterior lateral branch of the right coronary artery, 70% stenosis. Prefer to treated medically. Patient was stable after
the procedure, denied shortness of breath, chest pain. For medical management of ACS, triple therapy with antiplatelet/anticoagulant. Aspirin for 3 weeks and then discontinued.Added Plavix 75 mg with Xarelto 15 mg. For cholesterol lowering
agent Zetia 10 mg daily. Carvedilol was increased to 6.25 mg proximal atrial fibrillation and ACS. Regarding type 2 diabetes mellitus patient A1c is 7.1 with recent blood glucose 115. Adding metformin 500 mg twice daily, continue to follow-up
with PCP.
ACS/non-STEMI/CAD
Start aspirin 81 mg a day for 3 weeks, then discontinue, Carvedilol 6.25 mg twice daily (higher dose), Rosuvastatin 40 mg a day, Rivaroxaban 15 mg a day (lower dose), Plavix 75 mg daily, Ezetimibe 10 mg daily
-Cardiology outpatient follow-up
Type 2 diabetes mellitus
-Start metformin twice daily 500
-Hold for 48 hours after discharge and then start the medication.
Follow-up with PCP
Proximal atrial fibrillation
Continue start carvedilol 6.25. Continue Xarelto 15 mg.
Hypertension
Resume on home medication
Hypothyroidism
resume on home medication
Discharge Plan
-
Patient Disposition: Home (Routine Discharge)
Discharge Diagnosis/Procedures: NSTEMI, s/p cardiac catheterization
Condition: Fair
Diet: Low Fat
Driving Restrictions: No driving for 24 hours
Bathing Restrictions: OK to Shower
Other Services: Cardiac Rehab
Stand Alone Forms: DC Instructions- Cath/EP Lab
Referrals:
[facility]. Cardiac Rehab [Outside] - 11/15/23 1:00 pm
(Cardiac Rehab Orientation appointment and� First Exercise appointment is on 11/15/23 at 1PM.
The Cardiac Rehab gym is located on the first floor of the [facility].)
Cecilia Hills CRNP [Specified Professional Personl] - 10/28/23 2:00 pm (Cardiology followup appointment)
Abelardo Strickland DO [Family Provider] -
Additional Discharge Medication Instructions: -Start taking Plavix (clopidogrel) 75 mg daily on 10/13/23. You will take Plavix every day for the next 6-12 months and then stop. Dr. Mcgrath will work with you in the office to decide when Plavix will be
stopped.
-Start taking aspirin 81 mg daily on 10/13/23.
-Start taking Xarelto 15 mg daily on 10/13/23. This is a lower dose of Xarelto that you will take while you also take Plavix for the next 6-12 months.
-After 3 weeks of aspirin, Plavix and Xarelto 15 mg daily therapy you will stop aspirin, but continue Plavix and xarelto
-Coreg (carvedilol) dose increased to 6.25 mg (two 3.125 mg tablets or one 6.25 mg tablet) twice a day
-Start taking Zetia (ezetimibe) 10 mg once daily on 10/13/23. Take this in addition to Crestor to help lower cholesterol.
Start metformin 500 mg twice daily for diabetes. hold for 48 hours after discharge and then start in 2 days. As the patient had cardiac catheterization, it is important to hold metformin for 48 hours.
Prescriptions:
New
aspirin [Children's Aspirin] 81 mg Tablet,Chewable
81 mg PO DAILY Qty: 30 0RF
clopidogrel [Plavix] 75 mg tablet
75 mg PO DAILY Qty: 30 2RF
Xarelto 15 mg tablet
15 mg PO DAILY Qty: 30 2RF
carvedilol [Coreg] 6.25 mg tablet
6.25 mg PO BID Qty: 60 11RF
ezetimibe [Zetia] 10 mg tablet
10 mg PO DAILY Qty: 30 11RF
metformin 500 mg tablet
500 mg PO BID 30 Days Qty: 60 0RF
Continued
sertraline 100 MG tablet
100 mg PO DAILY
levothyroxine [Euthyrox] 50 MCG tablet
50 mcg PO DAILY@0700
lorazepam 0.5 mg Tablet
0.5 mg PO HS PRN (Reason: anxiety) Qty: 0
rosuvastatin 40 mg Tablet
40 mg PO DAILY
Discontinued
Xarelto 20 MG tablet
20 mg PO HS Qty: 0 0RF
carvedilol 3.125 mg Tablet
3.125 mg PO BID
Discharge Orders:
Discharge Patient (As Directed); Ordered 10/12/23
Ordered By: Domingo Waterman
Care Plan Goals
Care Plan Goals:
Problem: Readiness for enhanced knowledge related to diagnosis and treatment plan
Goal: Understand your diagnosis and treatment plan needs, including medications if applicable.
Instructions: Know your diagnosis, underlying causes and treatment plan options, including medications if applicable. Consult with your health care team to learn about your diagnosis and treatment plan, including medications if applicable.
Discharge Date and Time
Discharge Date/Time: 10/12/23 15:30

Documented by User: Gerry Patricio MD 10/12/23 23:16
Discharge Summary
Discharge Data
Date of Admission: 10/11/23
Date of Discharge: 10/12/23
Discharge Plan
-
Patient Disposition: Home (Routine Discharge)
Discharge Diagnosis/Procedures: NSTEMI, s/p cardiac catheterization
Condition: Fair
Diet: Low Fat
Driving Restrictions: No driving for 24 hours
Bathing Restrictions: OK to Shower
Other Services: Cardiac Rehab
Stand Alone Forms: DC Instructions- Cath/EP Lab
Referrals:
[facility] Cardiac Rehab [Outside] - 11/15/23 1:00 pm
(Cardiac Rehab Orientation appointment and� First Exercise appointment is on 11/15/23 at 1PM.
The Cardiac Rehab gym is located on the first floor of the [facility].)
Cecilia Hills CRNP [Specified Professional Personl] - 10/28/23 2:00 pm (Cardiology followup appointment)
Abelardo Strickland DO [Family Provider] -
Additional Discharge Medication Instructions: -Start taking Plavix (clopidogrel) 75 mg daily on 10/13/23. You will take Plavix every day for the next 6-12 months and then stop. Dr. Mcgrath will work with you in the office to decide when Plavix will be
stopped.
-Start taking aspirin 81 mg daily on 10/13/23.
-Start taking Xarelto 15 mg daily on 10/13/23. This is a lower dose of Xarelto that you will take while you also take Plavix for the next 6-12 months.
-After 3 weeks of aspirin, Plavix and Xarelto 15 mg daily therapy you will stop aspirin, but continue Plavix and xarelto
-Coreg (carvedilol) dose increased to 6.25 mg (two 3.125 mg tablets or one 6.25 mg tablet) twice a day
-Start taking Zetia (ezetimibe) 10 mg once daily on 10/13/23. Take this in addition to Crestor to help lower cholesterol.
Start metformin 500 mg twice daily for diabetes. hold for 48 hours after discharge and then start in 2 days. As the patient had cardiac catheterization, it is important to hold metformin for 48 hours.
Prescriptions:
New
aspirin [Children's Aspirin] 81 mg Tablet,Chewable
81 mg PO DAILY Qty: 30 0RF
clopidogrel [Plavix] 75 mg tablet
75 mg PO DAILY Qty: 30 2RF
Xarelto 15 mg tablet
15 mg PO DAILY Qty: 30 2RF
carvedilol [Coreg] 6.25 mg tablet
6.25 mg PO BID Qty: 60 11RF
ezetimibe [Zetia] 10 mg tablet
10 mg PO DAILY Qty: 30 11RF
metformin 500 mg tablet
500 mg PO BID 30 Days Qty: 60 0RF
Continued
sertraline 100 MG tablet
100 mg PO DAILY
levothyroxine [Euthyrox] 50 MCG tablet
50 mcg PO DAILY@0700
lorazepam 0.5 mg Tablet
0.5 mg PO HS PRN (Reason: anxiety) Qty: 0
rosuvastatin 40 mg Tablet
40 mg PO DAILY
Discontinued
Xarelto 20 MG tablet
20 mg PO HS Qty: 0 0RF
carvedilol 3.125 mg Tablet
3.125 mg PO BID
Discharge Orders:
Discharge Patient (As Directed); Ordered 10/12/23
Ordered By: Domingo Waterman
Care Plan Goals
Care Plan Goals:
Problem: Readiness for enhanced knowledge related to diagnosis and treatment plan
Goal: Understand your diagnosis and treatment plan needs, including medications if applicable.
Instructions: Know your diagnosis, underlying causes and treatment plan options, including medications if applicable. Consult with your health care team to learn about your diagnosis and treatment plan, including medications if applicable.
Discharge Date and Time
Discharge Date/Time: 10/12/23 15:30
== END 2023-10-12 15:30 | disposition home or self-care (01) | DRG 281 ==
LOC: IVU 00:50
PROVIDERS: Internal Medicine Cardiovascular Disease; Nurse Practitioner; ADMITTING PHYSICIAN Internal Medicine; ATTENDING PHYSICIAN Family Medicine; EMERGENCY PHYSICIAN Emergency Medicine; FAMILY PHYSICIAN Internal Medicine; OTHER PHYSICIAN Nuclear Medicine Nuclear Cardiology
PROC: B2111ZZ Fluoroscopy of Multiple Coronary Arteries using Low Osmolar Contrast (ICD-10-PCS; 2023-10-11)
PROC: 4A023N7 Measurement of Cardiac Sampling and Pressure, Left Heart, Percutaneous Approach (ICD-10-PCS; 2023-10-11)
PROC: B2151ZZ Fluoroscopy of Left Heart using Low Osmolar Contrast (ICD-10-PCS; 2023-10-11)
DX: I21.4 Non-ST elevation (NSTEMI) myocardial infarction (principal); Q60.0 Renal agenesis, unilateral; E78.2 Mixed hyperlipidemia; I48.0 Paroxysmal atrial fibrillation; E03.9 Hypothyroidism, unspecified; I10 Essential (primary) hypertension; E66.9 Obesity, unspecified; G47.33 Obstructive sleep apnea (adult) (pediatric); F32.A Depression, unspecified; I25.10 Atherosclerotic heart disease of native coronary artery without angina pectoris; R51.9 Headache, unspecified; E11.65 Type 2 diabetes mellitus with hyperglycemia; Z95.5 Presence of coronary angioplasty implant and graft; Z79.890 Hormone replacement therapy; Z90.49 Acquired absence of other specified parts of digestive tract; Z87.440 Personal history of urinary (tract) infections; Z87.442 Personal history of urinary calculi; Z79.01 Long term (current) use of anticoagulants; Z68.33 Body mass index [BMI] 33.0-33.9, adult; Z87.891 Personal history of nicotine dependence; Z83.3 Family history of diabetes mellitus; Z82.49 Family history of ischemic heart disease and other diseases of the circulatory system; Z95.0 Presence of cardiac pacemaker
CPT/HCPCS: 93308; 71045; 80048; 80053; 80061; 82962; 83036; 83880; 84484; 85025; 85027; 85730; 93005; 96374; 96375; 99291; 99292; C1894; Q9957; Q9967

== ENCOUNTER 2023-11-15 13:00 | Outpatient (RCR) | payer MEDICARE, SELFPAY ==
[2023-11-15 14:10] LABS: Glucose - Point of Care 113 mg/dl (70-99)
[2023-11-15 15:44] LABS: Glucose - Point of Care 109 mg/dl (70-99)
== END 2023-11-15 23:59 | disposition home or self-care (01) ==
LOC: CRHB 13:00
PROVIDERS: ATTENDING PHYSICIAN Internal Medicine Cardiovascular Disease; FAMILY PHYSICIAN Internal Medicine
DX: I25.10 Atherosclerotic heart disease of native coronary artery without angina pectoris (principal); I21.4 Non-ST elevation (NSTEMI) myocardial infarction
CPT/HCPCS: 82962; G0422; G0423

== ENCOUNTER 2023-12-17 17:47 | Outpatient (RCR) | payer MEDICARE, SELFPAY ==
[2023-11-29 17:29] LABS: Glucose - Point of Care 155 mg/dl (70-99)
[2023-11-29 18:19] LABS: Glucose - Point of Care 85 mg/dl (70-99)
[2023-12-01 17:35] LABS: Glucose - Point of Care 94 mg/dl (70-99)
[2023-12-01 18:23] LABS: Glucose - Point of Care 98 mg/dl (70-99)
[2023-12-03 17:38] LABS: Glucose - Point of Care 92 mg/dl (70-99)
[2023-12-03 18:46] LABS: Glucose - Point of Care 100 mg/dl (70-99)
[2023-12-06 17:31] LABS: Glucose - Point of Care 107 mg/dl (70-99)
[2023-12-06 18:29] LABS: Glucose - Point of Care 96 mg/dl (70-99)
[2023-12-08 17:24] LABS: Glucose - Point of Care 122 mg/dl (70-99)
[2023-12-08 18:35] LABS: Glucose - Point of Care 78 mg/dl (70-99)
[2023-12-08 18:41] LABS: Glucose - Point of Care 80 mg/dl (70-99)
[2023-12-17 17:43] LABS: Glucose - Point of Care 108 mg/dl (70-99)
[2023-12-17 18:44] LABS: Glucose - Point of Care 106 mg/dl (70-99)
== END 2023-12-17 23:59 | disposition home or self-care (01) ==
LOC: CRHB 17:47
PROVIDERS: ATTENDING PHYSICIAN Internal Medicine Cardiovascular Disease; FAMILY PHYSICIAN Internal Medicine
DX: I25.10 Atherosclerotic heart disease of native coronary artery without angina pectoris (principal); Z95.5 Presence of coronary angioplasty implant and graft
CPT/HCPCS: 82962; G0422

== ENCOUNTER 2023-12-24 17:29 | Outpatient (RCR) | payer MEDICARE, SELFPAY ==
[2023-12-22 17:41] LABS: Glucose - Point of Care 103 mg/dl (70-99)
[2023-12-22 18:34] LABS: Glucose - Point of Care 83 mg/dl (70-99)
[2023-12-24 17:17] LABS: Glucose - Point of Care 127 mg/dl (70-99)
[2023-12-24 18:20] LABS: Glucose - Point of Care 88 mg/dl (70-99)
== END 2023-12-24 23:59 | disposition home or self-care (01) ==
LOC: CRHB 17:29
PROVIDERS: ATTENDING PHYSICIAN Internal Medicine Cardiovascular Disease; FAMILY PHYSICIAN Internal Medicine
DX: I25.10 Atherosclerotic heart disease of native coronary artery without angina pectoris (principal); I25.2 Old myocardial infarction; Z95.5 Presence of coronary angioplasty implant and graft
CPT/HCPCS: 82962; G0422

== ENCOUNTER 2024-02-16 17:37 | Outpatient (RCR) | payer MEDICARE, SELFPAY | END 2024-02-16 23:59 | disposition home or self-care (01) | LOC: CRHB 17:37 | PROVIDERS: ATTENDING PHYSICIAN Internal Medicine Cardiovascular Disease; FAMILY PHYSICIAN Internal Medicine | DX: I25.10 Atherosclerotic heart disease of native coronary artery without angina pectoris (principal); Z95.5 Presence of coronary angioplasty implant and graft; I25.2 Old myocardial infarction | CPT/HCPCS: G0422 ==

== ENCOUNTER 2024-02-24 09:17 | Day surgery (SDC) | payer MEDICARE, SELFPAY ==
--- NOTE | 2024-02-24 12:42 | ITS.CL.CARDI ---
Manager Field Service - Cardioversion
Cardioversion
Procedure Report:
Procedure: Direct current electrical cardioversion
Pre-operative diagnosis: Persistent atrial fibrillation
Post-operative diagnosis: Persistent atrial fibrillation status post DC cardioversion to sinus rhythm
Anesthesia: MAC
Attending Physician: Chu Beck MD
Procedure Description: The patient was brought to the electrophysiology laboratory in the fasting state. Adherence to anticoagulation regimen was confirmed. Informed consent was obtained from the patient prior to the start of the procedure.
Electrodes were placed on the patient and connected to an external defibrillator. Monitoring of blood pressure, ECG tracings, and pulse oximetry was initiated. The pads were applied to the patient in the anterior and posterior positions. The patient
was sedated by the anesthesiologist. A 200 joule biphasic synchronized shock was delivered to the patient under MAC anesthesia. Sinus rhythm was successfully restored. The patient recovered uneventfully from MAC anesthesia. There were no immediate
post-procedure complications. The patient left the lab in good condition. The attending physician was present throughout the entire procedure.
Impression: Successful direct current cardioversion with jewish of sinus rhythm after one 200 joule biphasic synchronized shock.
== END 2024-02-24 13:30 | disposition home or self-care (01) ==
LOC: CATH 09:17
PROVIDERS: ATTENDING PHYSICIAN Internal Medicine Cardiovascular Disease; FAMILY PHYSICIAN Internal Medicine; OTHER PHYSICIAN Internal Medicine Cardiovascular Disease
DX: I48.19 Other persistent atrial fibrillation (principal); Z79.01 Long term (current) use of anticoagulants; Z79.84 Long term (current) use of oral hypoglycemic drugs; Z79.02 Long term (current) use of antithrombotics/antiplatelets; Z79.899 Other long term (current) drug therapy; I25.10 Atherosclerotic heart disease of native coronary artery without angina pectoris; I25.2 Old myocardial infarction; E78.5 Hyperlipidemia, unspecified; I10 Essential (primary) hypertension; Q60.0 Renal agenesis, unilateral
CPT/HCPCS: 92960; 93005

== ENCOUNTER 2024-03-15 17:20 | Outpatient (RCR) | payer MEDICARE, SELFPAY | END 2024-03-15 23:59 | disposition home or self-care (01) | LOC: CRHB 17:20 | PROVIDERS: ATTENDING PHYSICIAN Internal Medicine Cardiovascular Disease | DX: I25.10 Atherosclerotic heart disease of native coronary artery without angina pectoris (principal); Z95.5 Presence of coronary angioplasty implant and graft; I25.2 Old myocardial infarction | CPT/HCPCS: G0422 ==

== ENCOUNTER 2024-03-22 18:02 | Outpatient (RCR) | payer MEDICARE, SELFPAY | END 2024-03-22 23:59 | disposition home or self-care (01) | LOC: CRHB 18:02 | PROVIDERS: ATTENDING PHYSICIAN Internal Medicine Cardiovascular Disease | DX: I25.10 Atherosclerotic heart disease of native coronary artery without angina pectoris (principal); I25.2 Old myocardial infarction; Z95.5 Presence of coronary angioplasty implant and graft | CPT/HCPCS: G0422 ==

== ENCOUNTER 2024-06-14 06:06 | Day surgery (SDC) | payer MEDICARE, SELFPAY ==
[2024-05-30 11:18] VITALS: BMI 33.6
[2024-05-30 11:43] LABS: % Basophils 0.4 % (0-2); % Eosinophils 1.6 % (0-6); % Immature Granulocytes 0.2 % (0-0.5); % Lymphocytes 25.4 % (20.5-51.1); % Monocytes 10.9 % (1.7-9.3); % Neutrophils 61.5 % (42.2-75.2); Absolute Eosinophils 0.1 10^3/uL (0-0.7); Absolute Lymphocytes 1.1 10^3/uL (1.2-3.4); Absolute Monocytes 0.5 10^3/uL (0.1-0.6); Absolute Neutrophils 2.8 10^3/uL (1.4-6.5); Hematocrit 40.8 % (39.0-52.0); Hemoglobin 13.7 g/dL (13.0-18.0); Mean Corp Hgb Conc. 33.6 g/dL (33.0-37.0); Mean Corpuscular Hgb 31.1 pg (27.0-31.0); Mean Corpuscular Volume 92.5 fL (80.0-94.0); Mean Platelet Volume 9.6 fL (7.4-10.4); Nucleated Red Blood Cells % 0 % (-); Platelet Count 153 10^3/uL (130-400); Red Blood Cell Count 4.41 10^6/uL (4.70-6.10); Red Cell Dist. Width 13.8 % (11.5-14.5); White Blood Cell Count 4.5 10^3/uL (4.8-10.8)
[2024-05-30 11:53] LABS: INR 2.11; PT 23.8 Sec (11.4-14.6)
[2024-05-30 12:00] LABS: AST (SGOT) 58 U/L (17-59); Albumin 4.4 g/dl (3.5-5.0); Blood Urea Nitrogen 17 mg/dl (9-20); Carbon Dioxide 26 mmol/L (22-30); Estimated Creatinine Clearance 86 ml/min; Glucose 131 mg/dl (70-99); Potassium 4.4 mmol/L (3.5-5.1); Sodium 142 mmol/L (135-145); Total Bilirubin 1.1 mg/dl (0.2-1.3); Total Protein 7.2 g/dl (6.3-8.2); eGFR > 60.00
[2024-05-30 12:35] LABS: ALT (SGPT) 118 U/L (0-50); Alkaline Phosphatase 92 U/L (38-126); Calcium 9.4 mg/dl (8.4-10.2); Chloride 104 mmol/L (98-107)
[2024-06-14] VITALS (14 sets, daily range): BP systolic 108–143; BP diastolic 71–109; BMI 31.7
[2024-06-14 06:56] LABS: Glucose - Point of Care 110 mg/dl (70-99)
[2024-06-14] MEDS: TYLENOL 1000 MG PO (07:09)
--- NOTE | 2024-06-14 07:48 | ITS.CL.ABL ---
Field Care Advocate - Ablation
Ablation
Procedure Report:
Primary Quilting Machine Operator: Scott Mcgrath MD
Procedure Date: 06/14/2024
Patient History:
Patient is a pleasant 79-year-old male with a past medical history significant for CAD status post PCI, complete heart block with dual-chamber pacemaker, PAF, hypertension, hyperlipidemia, obesity, solitary kidney, sleep apnea, hypothyroidism,
cognitive impairment.
See H&P for complete details.
Indication:
Symptomatic paroxysmal now likely persistent atrial fibrillation
Breakthrough on antiarrhythmic medical therapy
Arrhythmia Specific History:
Prior Medical Therapies for Rate and Rhythm Control:
X Beta-maria ines
[ ] Calcium channel-maria ines
X Amiodarone
[ ] Dronederone
[ ] Sotalol
[ ] Flecainide
[ ] Dofetilide
[ ] Options limited by bradycardia
[ ] Options limited by comorbid renal disease
Prior Procedural Therapies for AF/AFL:
[ ] Cardioversion
[ ] Pulmonary Vein Isolation
[ ] Posterior Wall Isolation
[ ] Additional lines (Specify)
[ ] Surgical Nash-MAZE or PVI (Specify)
Procedure Performed:
X AF ablation procedure (90537) -- includes LA/CS pacing, trans-septal, 3D mapping, + ICE
[ ] +IV drug (16422)
[ ] +Other Arrhythmia (95014)
X +Other AF Line/ablation (68488) -- PWI
Risks and expected recovery has been explained in detail. Alternative options have been explored, and in a shared-decision making fashion we have decided that this was the most appropriate procedure.
Method
NPO status confirmed. Grounding pad applied. Defibrillator pads applied. Continuous surface ECG, pulse oximetry, and blood pressure were monitored. Procedure was performed under general anesthesia, with anesthesia services.
Both groins were clipped, prepped with Chloraprep, and draped in sterile fashion. Time out was called. Local anesthesia administered with bupivacaine. The right femoral vein were accessed for catheter placement, using ultrasound guidance,
micro-puncture needle/wire, and modified seldinger technique. 3 sheaths were placed. The following catheters were used:
[ ] Tacticath SE (D/F Curve) ablation catheter
X Viewflex 9Fr ICE catheter
X Inquiry decapolar 6Fr diagnostic catheter
[ ] CRD Hex 6Fr
[ ] Arctic Front Advance Cryoballoon ([ ]28mm[ ]23mm)
[ ] Achieve Advance mapping catheter ([ ]15mm[ ]20mm)
X FlexCath Contour 10 Fr with PulseSelect PFA Catheter
X Advisor HD Grid Mapping Catheter, SE
[ ] Acuson AcuNav 8 Fr ICE catheter
[ ]Other: [ ]
Intracardiac ultrasound (ICE) was carefully advanced into the right atrium to guide sheath placement over a J-wire, catheter placement, guide trans-septal puncture, identify potential complications, identify anatomic structures and ensure proper
contact between ablation catheter and tissue.
Heparin was given prior to trans-septal puncture. Heparin was given to achieve and maintain a target ACT of 300-400 seconds throughout the procedure.
Trans-septal access was performed under ICE guidance. The trans-septal puncture was performed with a SafeSept wire through a Brockenbrough needle assembly through the steerable sheath. The wire was visualized as it entered the LSPV and system
advanced under ICE guidance and fluoroscopy into the LA. The Brockenbrough needle assembly, SafeSept wire and sheath dilator were removed under negative pressure. LA pressure was measured and recorded.
ICE and 3D mapping was performed to identify relevant cardiac structures. A careful 3D map was created to assess for regions of low-voltage and abnormal electrogram signals using HD grid mapping catheter and PulseSelect catheter. Additional mapping
was performed as outlined below.
Activation on the decapolar catheter demonstrated a distal to proximal activation. Mapping of the left atrium with HD grid demonstrated fractionation along the roof near the right superior pulmonary vein. Cycle length contained within the left
atrium. Entrainment from fractionation area at the right superior pulmonary vein demonstrated a PPI minus TCL less than 30. PulseSelect catheter was advanced over J-wire to the ostium of each vein. Pulmonary vein isolation was performed with
ostial and antral lesions in a circumferential manner. Contact was visualized via EAM, ICE, fluoroscopy, and EGM signals. Posterior wall isolation was performed by anchoring the J-wire within the pulmonary vein and placing the PulseSelect catheter
in contact with the posterior wall as visualized by aforementioned methods. During ablation, CS activation pattern shifted with 'wobble' cycle length more consistent with atrial fibrillation. Following completion of ablation lesions, sinus rhythm
was restored with a 200J synchronized DCCV and a post-ablation voltage/activation map was performed in atrial pacing. Entrance and exit block were confirmed for each vein and the posterior wall.
Catheter and sheath were removed from the left atrium and post-ablation intracardiac echo evaluation was consistent with pre-ablation with no changes and no pericardial effusion and there is no left atrial thrombus or left ventricle thrombus seen.
Hemostasis was obtained with figure of 8 stitch for each groin and with manual pressure. Protamine was used for reversal.
Estimated Blood Loss
10 mL
Complications
None
Fluoroscopy: 3.5 minutes; 13.06 mGy; DAP 1.89
Baseline Intervals:
Rhythm: AF/WEAVING INSTRUCTOR
QRS: 106 ms
QT: 405 ms
QTc: 440 ms
R-R: 840 ms
Post-Procedure Intervals:
RI/AV Delay: 238 ms
QRS: 108 ms
QT: 443 ms
QTc: 478 ms
A-A: 859 ms
R-R: 859 ms
Recommendations
- Bedrest with straight-leg precautions as ordered
- Anticipate same day discharge if patient meeting clinical metrics
- Resume home medications as indicated
- Ok to resume anticoagulation tonight if patient and groin sites stable
- Continue amiodarone for 3 months
- Plan for follow-up in office as scheduled
Nathan Mario DO
Clinical Cardiac Flight Test Shop Mechanic
cc: Scott Mcgrath MD; Abelardo Strickland MD
[2024-06-14 08:46] LABS: ACT-LR - POC 316 Seconds (116-155)
[2024-06-14 09:01] LABS: ACT-LR - POC 311 Seconds (116-155)
[2024-06-14 09:36] LABS: ACT-LR - POC 343 Seconds (116-155)
[2024-06-14 09:45] LABS: Glucose - Point of Care 113 mg/dl (70-99)
[2024-06-14 09:51] LABS: ACT-LR - POC > 397 Seconds (116-155)
[2024-06-14 10:18] LABS: ACT-LR - POC 331 Seconds (116-155)
[2024-06-14 11:29] LABS: Glucose - Point of Care 128 mg/dl (70-99)
[2024-06-14 11:34] LABS: ACT-LR - POC > 397 Seconds (116-155)
== END 2024-06-14 16:31 | disposition home or self-care (01) ==
LOC: CATH 06:06
PROVIDERS: ATTENDING PHYSICIAN Internal Medicine Cardiovascular Disease; FAMILY PHYSICIAN Internal Medicine; REFERRING PHYSICIAN Internal Medicine Cardiovascular Disease
DX: I48.0 Paroxysmal atrial fibrillation (principal); R06.09 Other forms of dyspnea; I25.10 Atherosclerotic heart disease of native coronary artery without angina pectoris; Z95.5 Presence of coronary angioplasty implant and graft; I49.5 Sick sinus syndrome; I44.2 Atrioventricular block, complete; Z95.0 Presence of cardiac pacemaker; I10 Essential (primary) hypertension; E78.5 Hyperlipidemia, unspecified; E03.9 Hypothyroidism, unspecified; E11.9 Type 2 diabetes mellitus without complications; G47.33 Obstructive sleep apnea (adult) (pediatric); N40.0 Benign prostatic hyperplasia without lower urinary tract symptoms; Z79.01 Long term (current) use of anticoagulants; Z79.02 Long term (current) use of antithrombotics/antiplatelets; Z79.84 Long term (current) use of oral hypoglycemic drugs
CPT/HCPCS: C1732; C1894; C1769; C1759; C1733; C1766; 36415; 75572; 80053; 82962; 83735; 85025; 85347; 85610; 86850; 86900; 86901; 93005; 93656; 93657; Q9967

== ENCOUNTER 2024-08-29 11:27 | Emergency (ER) | payer MEDICARE, SELFPAY ==
[2024-08-29 11:35] VITALS: BP 90/71
--- NOTE | 2024-08-29 12:32 | ED.GENMED ---
History of Present Illness
General
Chief Complaint: Back Pain
Source: patient and spouse
Exam Limitations: none
Time Seen by Provider: 08/29/24 11:57
Nursing documentation reviewed up to this point in time: agreed with
History of Present Illness
History of Present Illness:
79 yo male w h/o afib on Xarelto and Plavix (ablation 05/2024), pacemaker 2021, CAD, cardiac stent, HTN, HLD, MT, Hypothyroid, R renal agenesis, depression, presents for pain left hip, left lower back that radiates down thigh to knee.
Pt and state pain came on gradually three weeks ago, no recollection of overuse or injury.
Saw Dr. Hartley at [facility] 2 weeks ago, and had injection for bursitis which did not help the pain at all.
For past week pt has been unable to ambulate other than to BR and back with cane, unable to do his usual ADLs of dressing showering, etc due to the pain. Has been mainly bedridden.
Denies fever/chills, denies abdominal pain. Denies SOB, CP. Denies loss of bowel or bladder control but states he 'leaks some' more than usual. Had BM yesterday, normal. Denies saddle numbness, weakness in legs. Denies n/v/d/
Past History
Past History
ED Past Medical History: Arrthythmia (Atrial fib o Xarelto), CAD, HTN, Hypercholesterolemia and Other (hemmerhoids, diverticulosis, coronary artery disease status post stent, recent UTI, Bacterial Pneumonia, Shingles); Negative Cancer, CHF, COPD or
CVA
ED Past Surgical History: Appendectomy, Cardiac (stent), Orthopedic (R shoulder surg) and Other (Kidney surg,); Negative Bowel resection or Brain
Social History
Tobacco: Non-smoker
Alcohol: Occasional
Personal:
Living: with family
Employment: Employed
Family History
Family History: Diabetes and Other (Parostate CA, Alzheimer's)
Review of Systems
Review of Systems
Allergies reviewed?: Yes
All Other Systems: ROS reviewed and negative except as documented in HPI and ROS
Constitutional: Denies fever or chills
Respiratory: Denies trouble breathing
Cardiac: Denies chest pain
ABD/GI: Reports anorexia (hasn't felt like eating); Denies nausea, vomiting or diarrhea
: Reports frequency and incontinence (chronically leaks urine but has been worse past 2 weeks); Denies dysuria or urgency
Musculoskeletal: Reports other (pain about the left hip); Denies edema or back pain
Skin: Reports no symptoms
Neurological: Reports no symptoms
Phy Exam
Physical Exam
Physical Exam:
GENERAL: No acute distress. A&Ox3.
CONSTITUTIONAL: Afebrile.
EYES: clear, conjunctivae normal
ENMT: moist mucus membranes, Pharynx nl
RESPIRATORY: Regular respirations, nonlabored, lungs clear.
CARDIOVASCULAR: Regular rate and rhythm, no murmurs, no rubs.
GI: Soft, palpation of LLQ elicits pain about that area as well as his hip area. normal BS
MUSCULOSKELETAL: No point tenderness with deep palpation of hip, spine, lower extremity. Negative bilateral SLR. Pain when left leg flexed and leg abducted, points to lateral left hip and anterior thigh to identify pain. Moves with ease. Well
perfused.
SKIN: Warm, dry, pink
PSYCH: Normal mood and affect. Well kept, interactive and appropriate
NEUROLOGIC: Awake, alert and oriented. No focal neurological deficits. Strength equal throughout.
Course
Orders/Labs/Results
Orders:
Orders
08/29/24 12:31
Morphine Sulfate 4 mg IV NOW STA
Ondansetron Injectable [Zofran] 4 mg IV NOW STA
Hip, Left 2-3 Views [CR Hip - LT w/wo Pel 2-3 Vw*] Urgent
Comment:
Reason For Exam: pain, no injury
Include a pelvis x-ray?: Yes
08/29/24 12:46
CRP [C-Reactive Protein] Urgent
Complete Blood Count/With Diff Urgent
Comprehensive Metabolic Panel Urgent
08/29/24 13:54
Urinalysis Reflex To Culture Urgent
Date Specimen was Collected: 08/29/24
Time Specimen was Collected: 13:50
Urine Microscopic Reflex Cult Urgent
08/29/24 15:32
CT Abd/Pel (IV only)-DH only Urgent
Comment:
Reason For Exam: RLQ pain
08/29/24 15:33
0.9% Sodium Chloride 500 ml [Nss] 500 ml IV BOLUS
08/29/24 17:32
Amoxicillin 875 mg/Clav 125 mg [Augmentin 875 mg/125 mg] 1 tablet PO NOW STA
Abnormal Lab Results
08/29/24 08/29/24
12:46 13:54
WBC 4.7 L 10^3/uL
(4.8-10.8)
RBC 4.38 L 10^6/uL
(4.70-6.10)
MCH 31.5 H pg
(27.0-31.0)
Monocytes % 11.3 H %
(1.7-9.3)
Glucose 134 H mg/dl
(70-99)
AST 64 H U/L
(17-59)
ALT 118 H U/L
(0-50)
Urine Albumin (Reflex) 1+ A
(Neg - Trace)
08/29/24 12:46
08/29/24 12:46
Vital Signs
Initial and Last Documented VS:
Initial Vital Signs
Temp Pulse Resp BP Pulse Ox
98.5 F 62 18 90/71 94
08/29/24 11:35 08/29/24 11:35 08/29/24 11:35 08/29/24 11:35 08/29/24 11:35
Last Documented Vital Signs
Temp Pulse Resp BP Pulse Ox
98.5 F 80 18 126/88 96
08/29/24 11:35 08/29/24 15:27 08/29/24 11:35 08/29/24 15:27 08/29/24 15:27
MDM/Problems Addressed
Differential Diagnosis Includes:
osteoarthritis, bursitis, sciatica, retro spinal/peritoneal bleeding, abscess
MDM/Problems Addressed:
79 yo male w h/o afib on Xarelto and Plavix (ablation 05/2024), pacemaker 2021, CAD, cardiac stent, HTN, HLD, MT, Hypothyroid, R renal agenesis, depression, presents for pain left hip, left lower back that radiates down thigh to knee.
Pt and state pain came on gradually three weeks ago, no recollection of overuse or injury.
Saw Dr. Hartley at [facility] 2 weeks ago, and had injection for bursitis which did not help the pain at all.
For past week pt has been unable to ambulate other than to BR and back with cane, unable to do his usual ADLs of dressing showering, etc due to the pain. Has been mainly bedridden.
Denies fever/chills, denies abdominal pain. Denies SOB, CP. Denies loss of bowel or bladder control but states he 'leaks some' more than usual. Had BM yesterday, normal. Denies saddle numbness, weakness in legs. Denies n/v/d/
No infectious symptoms. No sign of bleeding
1:30 p.m.
CBC no clinically significant abnormality
CMP: No clinically significant abnormality
CRP normal
Sed rate
3:30 p.m.
L hip xray radiology report read: IMPRESSION:
No acute abnormalities
Degenerative disc disease at L4-5
Bilateral degenerative facet joint disease at L5-S1
Pt still w tenderness LLQ with pain radiating around the left hip area, will get CT abd pelvis
5:30 PM:
CT abdomen pelvis with IV only contrast radiology report read: IMPRESSION: In the left anterior pelvis, 2.5 cm diverticulum extending superiorly the sigmoid colon, with slight thickening of the wall of the diverticulum and stranding of the adjacent
fat. Findings would suggest mild diverticulitis associated with this large diverticula, and please correlate with localized symptoms. No evidence for abscess. No evidence of free intraperitoneal air.
Plan: Augmentin, probiotics or yogurt, GI F/U
Pt and family very appreciative of the care, pt OOB and ambulating well comfortably. Stable for discharge
*Critical Care Note
Total Time (30-74mins, 75-104mins- exclusive of procedures): Not Applicable
ED Attending Note
-
Portions of this chart may have been created with voice recognition software.� Occasional wrong word or��sound alike� substitutions may have occurred due to the inherent limitations of voice recognition software.
Discharge Plan
Departure
Patient Disposition: Home (Routine Discharge)
Date of Disposition: 08/29/24
Time of Disposition: 18:00
Patient with high blood pressure during this ER visit?: No
Condition: Good
Discharge Problem:
Diverticulitis large intestine
Instructions: Diverticulitis - Discharge instructions
Prescriptions:
New
amoxicillin-pot clavulanate 875-125 mg tablet
1 tab PO BID Qty: 19 0RF
No Action
sertraline 100 MG tablet
100 mg PO DAILY
levothyroxine [Euthyrox] 50 MCG tablet
50 mcg PO DAILY@0700
lorazepam 0.5 mg Tablet
0.5 mg PO Q8HPRN PRN (Reason: anxiety) Qty: 0
rosuvastatin 40 mg Tablet
40 mg PO DAILY
clopidogrel [Plavix] 75 mg tablet
75 mg PO DAILY Qty: 30 2RF
Xarelto 15 mg tablet
15 mg PO DAILY Qty: 30 2RF
ezetimibe [Zetia] 10 mg tablet
10 mg PO DAILY Qty: 30 11RF
tamsulosin 0.4 mg Capsule
0.4 mg PO HS
nebivolol 10 mg Tablet
10 mg PO DAILY
metformin 500 mg tablet
500 mg PO DAILY
amiodarone 200 mg Tablet
200 mg PO DAILY
Referrals:
Adriana Buenrostro MD [Active] - Next open appointment
Abelardo Strickland DO [Family Provider] -
Activity Restrictions/Additional Instructions:
As we discussed, you have an inflamed/infected diverticulum causing your pain.
Tylenol 1000 mg up to 3 times a day as needed for pain
Call the GI doctors office and make next available appointment
Return here immediately for worsening pain, fever, bloody stools or feeling worse in any way
Interventions
Interventions:
*Risk Screen - Suicide Last Done: 08/29/24 11:35
*General Assessment Last Done: 08/29/24 11:35
*Neglect/Abuse Screening Last Done: 08/29/24 11:35
ED- Fall Risk Assessment Last Done: 08/29/24 13:26
*ED COVID-19 Vaccine History Last Done: 08/29/24 11:35
*Nursing Disposition Last Done: 08/29/24 18:24
ED-Musculoskeletal Assessment Last Done: 08/29/24 13:26
Discharge Date and Time
Discharge Date/Time: 08/29/24 18:24
Print Language: ITALIAN
[2024-08-29] MEDS: ZOFRAN 4 MG IV (12:49)
[2024-08-29] MEDS: MORPHINE SULFATE 4 MG IV (12:49)
[2024-08-29 12:53] LABS: % Basophils 0.6 % (0-2); % Eosinophils 1.9 % (0-6); % Immature Granulocytes 0.4 % (0-0.5); % Lymphocytes 24.9 % (20.5-51.1); % Monocytes 11.3 % (1.7-9.3); % Neutrophils 60.9 % (42.2-75.2); Absolute Eosinophils 0.1 10^3/uL (0-0.7); Absolute Lymphocytes 1.2 10^3/uL (1.2-3.4); Absolute Monocytes 0.5 10^3/uL (0.1-0.6); Absolute Neutrophils 2.9 10^3/uL (1.4-6.5); Hematocrit 40.8 % (39.0-52.0); Hemoglobin 13.8 g/dL (13.0-18.0); Mean Corp Hgb Conc. 33.8 g/dL (33.0-37.0); Mean Corpuscular Hgb 31.5 pg (27.0-31.0); Mean Corpuscular Volume 93.2 fL (80.0-94.0); Mean Platelet Volume 9.5 fL (7.4-10.4); Nucleated Red Blood Cells % 0 % (-); Platelet Count 156 10^3/uL (130-400); Red Blood Cell Count 4.38 10^6/uL (4.70-6.10); Red Cell Dist. Width 14.5 % (11.5-14.5); White Blood Cell Count 4.7 10^3/uL (4.8-10.8)
[2024-08-29 13:20] LABS: ALT (SGPT) 118 U/L (0-50); AST (SGOT) 64 U/L (17-59); Albumin 3.8 g/dl (3.5-5.0); Alkaline Phosphatase 71 U/L (38-126); Blood Urea Nitrogen 16 mg/dl (9-20); Calcium 9.1 mg/dl (8.4-10.2); Carbon Dioxide 24 mmol/L (22-30); Chloride 105 mmol/L (98-107); Glucose 134 mg/dl (70-99); Potassium 4.3 mmol/L (3.5-5.1); Sodium 138 mmol/L (135-145); Total Bilirubin 1.1 mg/dl (0.2-1.3); Total Protein 6.4 g/dl (6.3-8.2); eGFR > 60.00
[2024-08-29 13:22] LABS: C-Reactive Protein < 5.00 mg/L (0.0-10.00)
[2024-08-29 14:15] LABS: Urine Albumin 1+ (Neg - Trace); Urine Bilirubin Negative (Negative); Urine Character Clear (Clear); Urine Color Yellow; Urine Glucose Negative (Negative); Urine Ketone Negative (Negative); Urine Leukocyte Negative (Negative); Urine Nitrite Negative (Negative); Urine Occult Blood Negative (Negative); Urine Specific Gravity 1.015 (<1.030); Urine Urobilinogen Negative (Neg - 1+)
[2024-08-29 14:44] LABS: Urine Amorphous Seen; Urine Mucus Few; Urine Squamous Cell 0-2 /LPF (Few)
[2024-08-29 14:48] LABS: Urine Red Blood Cell 0-2 /HPF (0-2)
[2024-08-29 14:49] LABS: Urine White Cell 0-2 /HPF (0-5)
[2024-08-29 15:27] VITALS: BP 126/88
[2024-08-29] MEDS: NSS 500 IV (15:38)
[2024-08-29] MEDS: AUGMENTIN 875 MG/125 MG 1 TABLET PO (17:41)
== END 2024-08-29 18:24 | disposition home or self-care (01) ==
LOC: EMR 11:27
PROVIDERS: Registered Nurse; EMERGENCY PHYSICIAN Emergency Medicine; FAMILY PHYSICIAN Internal Medicine
DX: K57.32 Diverticulitis of large intestine without perforation or abscess without bleeding (principal); E03.9 Hypothyroidism, unspecified; E78.00 Pure hypercholesterolemia, unspecified; I10 Essential (primary) hypertension; I25.10 Atherosclerotic heart disease of native coronary artery without angina pectoris; I25.2 Old myocardial infarction; I48.91 Unspecified atrial fibrillation; Z79.01 Long term (current) use of anticoagulants; Z90.49 Acquired absence of other specified parts of digestive tract; Z95.5 Presence of coronary angioplasty implant and graft; Z95.0 Presence of cardiac pacemaker; Q60.0 Renal agenesis, unilateral; Z79.02 Long term (current) use of antithrombotics/antiplatelets
CPT/HCPCS: 96374; 96375; 96361; 99284; 73502; 74177; 80053; 81003; 81015; 85025; 86140; Q9967

== ENCOUNTER 2024-09-05 01:07 | Inpatient (IN) | payer MEDICARE, SELFPAY ==
[2024-09-04 18:14] VITALS: BP 112/91
[2024-09-04 18:48] LABS: % Basophils 0.7 % (0-2); % Eosinophils 4.1 % (0-6); % Immature Granulocytes 0.2 % (0-0.5); % Lymphocytes 22.2 % (20.5-51.1); % Monocytes 11.1 % (1.7-9.3); % Neutrophils 61.7 % (42.2-75.2); Absolute Eosinophils 0.2 10^3/uL (0-0.7); Absolute Lymphocytes 0.9 10^3/uL (1.2-3.4); Absolute Monocytes 0.5 10^3/uL (0.1-0.6); Absolute Neutrophils 2.6 10^3/uL (1.4-6.5); Hematocrit 43.5 % (39.0-52.0); Hemoglobin 14.4 g/dL (13.0-18.0); Mean Corp Hgb Conc. 33.1 g/dL (33.0-37.0); Mean Corpuscular Hgb 31.2 pg (27.0-31.0); Mean Corpuscular Volume 94.4 fL (80.0-94.0); Mean Platelet Volume 9.1 fL (7.4-10.4); Nucleated Red Blood Cells % 0 % (-); Platelet Count 158 10^3/uL (130-400); Red Blood Cell Count 4.61 10^6/uL (4.70-6.10); Red Cell Dist. Width 14.4 % (11.5-14.5); White Blood Cell Count 4.2 10^3/uL (4.8-10.8)
[2024-09-04 19:19] LABS: ALT (SGPT) 127 U/L (0-50); AST (SGOT) 87 U/L (17-59); Albumin 4.6 g/dl (3.5-5.0); Alkaline Phosphatase 81 U/L (38-126); Blood Urea Nitrogen 14 mg/dl (9-20); Calcium 9.3 mg/dl (8.4-10.2); Carbon Dioxide 22 mmol/L (22-30); Chloride 102 mmol/L (98-107); Glucose 116 mg/dl (70-99); Potassium 4.5 mmol/L (3.5-5.1); Sodium 136 mmol/L (135-145); Total Bilirubin 1.5 mg/dl (0.2-1.3); Total Protein 7.1 g/dl (6.3-8.2); eGFR > 60.00
[2024-09-04] MEDS: MORPHINE SULFATE 4 MG IV (22:51)
--- NOTE | 2024-09-04 22:59 | ED.GENMED ---
History of Present Illness
General
Chief Complaint: Abdominal Pain
Time Seen by Provider: 09/04/24 22:03
History of Present Illness
History of Present Illness:
79-year-old male with history of CAD with stenting, hypertension, A-fib on Xarelto, congenital solitary kidney presenting to the emergency department for worsening abdominal pain. Patient reports abdominal pain for the past several weeks. He was
seen in the hospital on 08/29, diagnosed with diverticulitis and started on amoxicillin. Notes no improvement of pain, pain has been worsening. Denies nausea or vomiting. Does note some diarrhea and constipation. Reports history of appendectomy
in the past as well as surgery for his kidney. Denies fever, chest pain, difficulty breathing. Denies any history of diverticulitis in the past. Denies significant medical complaints
Past History
Past History
ED Past Medical History: Arrthythmia (Atrial fib o Xarelto), CAD, HTN, Hypercholesterolemia and Other (hemmerhoids, diverticulosis, coronary artery disease status post stent, recent UTI, Bacterial Pneumonia, Shingles); Negative Cancer, CHF, COPD or
CVA
ED Past Surgical History: Appendectomy, Cardiac (stent), Orthopedic (R shoulder surg) and Other (Kidney surg,); Negative Bowel resection or Brain
Social History
Tobacco: Non-smoker
Alcohol: Occasional
Personal:
Living: with family
Employment: Employed
Family History
Family History: Diabetes and Other (Parostate CA, Alzheimer's)
Phy Exam
Physical Exam
Physical Exam:
General: Well-appearing, no clinical signs of dehydration, nontoxic and in no acute distress
HEENT: protecting airway
Neck: appears supple
CV: Normal heart rate, regular rhythm
Resp: No accessory muscle use, no increased work of breathing, lungs clear to auscultation bilaterally
Abd: Soft and non-distended, mild to moderate tenderness to the suprapubic and left lower quadrant abdomen without rebound or guarding
Extremities: No deformities, no swelling, no erythema
Neuro: alert, no focal neurologic deficit
: deferred
Rectal: deferred
Psych: Normal affect
Skin: Intact
Course
Orders/Labs/Results
Orders:
Orders
09/04/24 18:40
Complete Blood Count/With Diff Urgent
Comprehensive Metabolic Panel Urgent
09/04/24 22:34
CT Abd/pelvis W Iv Cont Urgent
Comment:
Reason For Exam: worsening pain, diverticulitis
Morphine Sulfate 4 mg IV NOW STA
09/04/24 23:57
CefTRIAXone [Rocephin] 1,000 mg IV NOW STA
MetroNIDAZOLE IVPB 500 mg IVPB NOW MetroNIDAZOLE 500 MG/100 ML [Flagyl 500 mg] 100 ml IV NOW
Abnormal Lab Results
09/04/24
18:40
WBC 4.2 L 10^3/uL
(4.8-10.8)
RBC 4.61 L 10^6/uL
(4.70-6.10)
MCV 94.4 H fL
(80.0-94.0)
MCH 31.2 H pg
(27.0-31.0)
Absolute Lymphs (auto) 0.9 L 10^3/uL
(1.2-3.4)
Monocytes % 11.1 H %
(1.7-9.3)
Glucose 116 H mg/dl
(70-99)
Total Bilirubin 1.5 H mg/dl
(0.2-1.3)
AST 87 H U/L
(17-59)
ALT 127 H U/L
(0-50)
09/04/24 18:40
09/04/24 18:40
Vital Signs
Initial and Last Documented VS:
Initial Vital Signs
Temp Pulse Resp BP Pulse Ox
98.1 F 83 18 112/91 98
09/04/24 18:14 09/04/24 18:14 09/04/24 18:14 09/04/24 18:14 09/04/24 18:14
Last Documented Vital Signs
Temp Pulse Resp BP Pulse Ox
98.1 F 83 18 112/91 98
09/04/24 18:14 09/04/24 18:14 09/04/24 18:14 09/04/24 18:14 09/04/24 18:14
MDM/Problems Addressed
MDM/Problems Addressed:
79-year-old male with history of CAD with stenting, hypertension, hyperlipidemia, A-fib on Xarelto, congenital solitary kidney presenting for worsening abdominal pain with known diverticulitis. Vital signs are normal.
On exam patient is resting comfortably, no acute distress, nontoxic. On abdominal exam, focal tenderness to the suprapubic and left lower quadrant abdomen with continued suspicion for diverticulitis. Lower suspicion for acute perforation given
relatively benign exam, nontoxic appearance. Labs obtained prior specimen, no leukocytosis. Concern of failure of outpatient therapy. Will obtain repeat CT imaging. Morphine administered for pain
23:55 - Labs unremarkable. CT shows continued evidence of acute diverticulitis. At this time continue to suspect failure of outpatient therapy. Admitting for IV antibiotics.
*Critical Care Note
Total Time (30-74mins, 75-104mins- exclusive of procedures): Not Applicable
ED Attending Note
-
Portions of this chart may have been created with voice recognition software.� Occasional wrong word or��sound alike� substitutions may have occurred due to the inherent limitations of voice recognition software.
Discharge Plan
Departure
Prescriptions:
No Action
sertraline 100 MG tablet
100 mg PO DAILY
levothyroxine [Euthyrox] 50 MCG tablet
50 mcg PO DAILY@0700
lorazepam 0.5 mg Tablet
0.5 mg PO Q8HPRN PRN (Reason: anxiety) Qty: 0
rosuvastatin 40 mg Tablet
40 mg PO DAILY
clopidogrel [Plavix] 75 mg tablet
75 mg PO DAILY Qty: 30 2RF
Xarelto 15 mg tablet
15 mg PO DAILY Qty: 30 2RF
ezetimibe [Zetia] 10 mg tablet
10 mg PO DAILY Qty: 30 11RF
tamsulosin 0.4 mg Capsule
0.4 mg PO HS
nebivolol 10 mg Tablet
10 mg PO DAILY
metformin 500 mg tablet
500 mg PO DAILY
amiodarone 200 mg Tablet
200 mg PO DAILY
amoxicillin-pot clavulanate 875-125 mg tablet
1 tab PO BID Qty: 19 0RF
Referrals:
Abelardo Strickland DO [Family Provider] -
Interventions
Interventions:
*Risk Screen - Suicide Last Done: 09/04/24 22:55
*General Assessment Last Done: 09/04/24 22:54
*Neglect/Abuse Screening Last Done: 09/04/24 22:54
ED- Fall Risk Assessment Last Done: 09/04/24 22:14
VF-Dxvbyg-Qoaybgosqu Assessment Last Done: 09/04/24 22:14
Discharge Date and Time
Print Language: KOREAN
[2024-09-04 23:00] VITALS: BP 129/77
[2024-09-05] VITALS (8 sets, daily range): BP systolic 114–143; BP diastolic 65–95; BMI 33.8; BMI 31.0
[2024-09-05] MEDS: ROCEPHIN 1000 MG IV ×2 (00:34→23:28)
[2024-09-05] MEDS: FLAGYL 500 MG 100 IV ×4 (00:34→23:29)
--- NOTE | 2024-09-05 00:49 | HPS.HSE ---
Family Physician
-
Family Physician: Abelardo Strickland
Chief Complaint
-
Left lower quadrant abdominal pain
History of Present Illness
This is a 79-year-old with past medical history significant for CAD status post NH, NSTEMI and multiple stents,paroxysmal atrial fibrillation on anticoagulation, BPH, hypertension, hyperlipidemia, kil-hgnomvu-ltuypfdvt diabetes presenting to the
emergency department with persistent left lower quadrant abdominal pain after initial diagnosis of acute sigmoid diverticulitis 7 days ago.
Patient reports that he has been having this left lower quadrant abdominal pain for about 3 weeks. Initially was diagnosed as hip pain/bursitis and received steroid injections. About 2 weeks after that without any improvement he came to the
emergency department and had a CT scan which showed acute sigmoid diverticulitis. Patient had no prior history of. He said that he was started on Augmentin. Today (taking as prescribed and was on a clear liquid diet. Despite this he continued to
have lower left quadrant abdominal pain. He denies any vomiting or nausea. Pain is worse with any movement. He is unable to sleep. But patient and spouse denies having any fevers at home. He denies any abdominal distention or bloating. Return
to the emergency department due to persistent symptoms.
In the emergency department today he remained afebrile, blood pressure was 112/90 with a pulse of 82 satting 98% on room air. CBC was unremarkable. Chemistries were also stable with normal electrolyte BUN and creatinine. LFTs slightly elevated at
AST of [address] of [address] of the abdomen pelvis shows rectosigmoid diverticulitis without perforation or abscess. No other acute findings. No comment on the biliary tree or liver or gallbladder.
Medical History
Past Medical History
Past Medical History: Reports Arrhythmia (A.fib on Xarelto), CAD, HTN, Hypercholesterolemia, Hypothyroidism and Other (diverticulosis, coronary artery disease status post stent, recent UTI, Bacterial Pneumonia, Shingles, solitary kidney)
Past Surgical History: Reports Appendectomy, Cardiac (stent), Orthopedic (right shoulder) and Other (kidney surgery decades ago for stones (congenital solitary kidney))
Social History
Tobacco: Non-smoker
Alcohol: Occasional
Personal:
Living: With Family
Family History
Family History: Cancer (prostate), Diabetes and Other (Alzheimers)
Allergies / Home Medications
Allergies reflects when Allergies were last updated in [employer].
Home Medications with original date entered in [employer]
Allergy/Medication List:
Allergies
Allergy/AdvReac Type Severity Reaction Status Date / Time
No Known Allergies Allergy Verified 06/14/24 06:17
Home Medications
levothyroxine 50 mcg tablet (Euthyrox) 50 mcg PO DAILY@0700 Thyroid 12/22/21
sertraline 100 mg tablet 100 mg PO DAILY Mental Health/Anxiety 12/22/21
lorazepam 0.5 mg tablet 0.5 mg PO Q8HPRN PRN anxiety ##0 12/30/21
rosuvastatin 40 mg tablet 40 mg PO DAILY High Cholesterol 10/11/23
clopidogrel 75 mg tablet (Plavix) 75 mg PO DAILY Heart disease/condition #30 tabs 10/12/23
ezetimibe 10 mg tablet (Zetia) 10 mg PO DAILY High cholesterol #30 tabs 10/12/23
rivaroxaban 15 mg tablet (Xarelto) 15 mg PO DAILY Heart disease/condition #30 tabs 10/12/23
nebivolol 10 mg tablet 10 mg PO DAILY 02/24/24
tamsulosin 0.4 mg capsule 0.4 mg PO HS 02/24/24
amiodarone 200 mg tablet 200 mg PO DAILY 05/26/24
metformin 500 mg tablet 500 mg PO DAILY 05/26/24
amoxicillin 875 mg-potassium clavulanate 125 mg tablet 1 tab PO BID #19 tabs 08/29/24
Review of Systems
-
Constitutional: Reports No Symptoms
EENT: Reports No Symptoms
Respiratory: Reports No Symptoms
Cardiac: Reports No Symptoms
Abdomen/GI: Reports Abdominal Pain
: Reports No Symptoms
Musculoskeletal: Reports No Symptoms
Skin: Reports No Symptoms
Neurological: Reports No Symptoms
Endocrine: Reports No Symptoms
Hematologic/Lymphatic: Reports No Symptoms
Psych: Reports No Symptoms
Physical Exam
Vital Signs
Vital Signs
Temp Pulse Resp BP Pulse Ox
98.1 F 83 18 112/91 98
09/04/24 18:14 09/04/24 18:14 09/04/24 18:14 09/04/24 18:14 09/04/24 18:14
Physical Exam
General: Well Developed, Well Nourished, Conversant and Pain
HEENT: NormoCephalic, Anicteric, Moist mucous membranes and Atraumatic
Respiratory: Clear
Cardiac: S1/S2 and Regular Rhythm
Breast: Deferred by me
GI: Soft, Non Distended, Normal Bowel Sounds and Tender
Rectal: Deferred by Provider
Genito-urinary: Deferred by me
Musculoskeletal: No Clubbing, No Cyanosis and No Edema
Skin: Warm
Neuro: AO x 3 and Nonfocal/grossly intact
Hematologic/Lymphatic: No Lymphadenopathy
Psych: Calm
Laboratory Results
-
09/04/24 18:40
09/04/24 18:40
Laboratory Results
Total Bilirubin 1.5 mg/dl (0.2-1.3) H 09/04/24 18:40
AST 87 U/L (17-59) H 09/04/24 18:40
ALT 127 U/L (0-50) H 09/04/24 18:40
Alkaline Phosphatase 81 U/L (38-126) 09/04/24 18:40
Data Reviewed
-
CT Scan: Report Reviewed by me
Lab Data: Labs Reviewed by me
Old Records: Reviewed
Impression/Plan
-
IMPRESSION:
79-year-old with multiple comorbidities presenting with left lower quadrant abdominal pain. CT scan shows acute sigmoid diverticulitis. Patient with failure of oral antibiotics as an outpatient after 7 days. He is hemodynamically stable and
afebrile. He is otherwise well-appearing but is in significant amount of abdominal discomfort.
PLAN:
1. Acute sigmoid diverticulitis -no perforation or abscess. Other than the Augmentin no recent antibiotics or hospitalizations. Low risk for resistant organism.
- admit to med/surg
- iv ceftriaxone/flagyl for now
- clear liquid diet, ADAT
- cultures if spike
- serial examinations
- pain control and antiemetics
2. CAD - No CP
- continue plavix
- continue statin/ezetimibe
- continue bblocker
3. AfIB - regular rhythm on exam.
- continu Xarelto
- continue bblocker and amio
DVT PPX - on Xarelto
code status - full code
[2024-09-05] MEDS: DILAUDID 0.5 MG IV (01:20)
[2024-09-05] MEDS: LR 1000 IV ×2 (02:52→16:18)
[2024-09-05] MEDS: ROXICODONE 5 MG PO (03:38)
[2024-09-05] MEDS: OFIRMEV 100 IV (05:24)
[2024-09-05] MEDS: SYNTHROID 50 MCG PO (06:12)
[2024-09-05 06:51] LABS: Hematocrit 39.4 % (39.0-52.0); Hemoglobin 12.8 g/dL (13.0-18.0); Mean Corp Hgb Conc. 32.5 g/dL (33.0-37.0); Mean Corpuscular Hgb 30.9 pg (27.0-31.0); Mean Corpuscular Volume 95.2 fL (80.0-94.0); Mean Platelet Volume 9.6 fL (7.4-10.4); Platelet Count 142 10^3/uL (130-400); Red Blood Cell Count 4.14 10^6/uL (4.70-6.10); Red Cell Dist. Width 14.1 % (11.5-14.5)
[2024-09-05 09:11] LABS: Blood Urea Nitrogen 15 mg/dl (9-20); Calcium 8.9 mg/dl (8.4-10.2); Carbon Dioxide 26 mmol/L (22-30); Chloride 105 mmol/L (98-107); Estimated Creatinine Clearance 111 ml/min; Glucose 92 mg/dl (70-99); Potassium 4.3 mmol/L (3.5-5.1); Sodium 138 mmol/L (135-145); eGFR > 60.00
[2024-09-05] MEDS: XARELTO 15 MG PO (09:41)
[2024-09-05] MEDS: BYSTOLIC 10 MG PO (09:41)
[2024-09-05] MEDS: PACERONE 200 MG PO (09:41)
[2024-09-05] MEDS: CRESTOR 40 MG PO (09:42)
[2024-09-05] MEDS: ZETIA 10 MG PO (09:42)
[2024-09-05] MEDS: PLAVIX 75 MG PO (09:42)
[2024-09-05] MEDS: ZOLOFT 100 MG PO (09:42)
[2024-09-05] MEDS: TYLENOL 650 MG PO ×2 (09:45→22:06)
--- NOTE | 2024-09-05 11:37 | W.PN.UPDATE ---
Update Note
Progress Note Update
Seen and admitted by this a.m.
Admitted for acute sigmoid mild diverticulitis as he failed outpatient oral antibiotic regimen. No immediate complications noted on the CT.
Continue with ceftriaxone and Flagyl.
--- NOTE | 2024-09-05 18:23 | PTCARENOTE ---
Received pt from ER, pt ambulated to the bed with single point cane. Stated having some LT sided tenderness but did not want any meds at this time. IVF infusing without difficulty. Will continue to monitor.
[2024-09-05] MEDS: FLOMAX 0.4 MG PO (21:08)
[2024-09-05] MEDS: STERILE WATER FOR INJECTION 10 ML IV (23:29)
[2024-09-06] MEDS: ROXICODONE 5 MG PO ×2 (00:55→13:46)
[2024-09-06] MEDS: DILAUDID 0.5 MG IV ×3 (02:39→20:04)
--- NOTE | 2024-09-06 02:44 | DOWNTIME ---
There was a [employer] Client Critical Power Technician Downtime on 09/06/2024 from 0100 to 09/06/2023 at 0235 . Downtime documentation of patient's care, including medication administrations, has been reconciled in the electronic record per guidelines. Refer to the
patient's paper chart under the miscellaneous tab to see printed paper medication records and downtime forms.
[2024-09-06] MEDS: LR 1000 IV (04:01)
[2024-09-06] MEDS: SYNTHROID 50 MCG PO (05:34)
[2024-09-06 07:30] VITALS: BP 134/92
[2024-09-06 07:52] LABS: Hematocrit 39.9 % (39.0-52.0); Hemoglobin 13.2 g/dL (13.0-18.0); Mean Corp Hgb Conc. 33.1 g/dL (33.0-37.0); Mean Corpuscular Hgb 31.4 pg (27.0-31.0); Mean Platelet Volume 9.6 fL (7.4-10.4); Platelet Count 132 10^3/uL (130-400); Red Cell Dist. Width 14.1 % (11.5-14.5); White Blood Cell Count 3.6 10^3/uL (4.8-10.8)
[2024-09-06] MEDS: ZOLOFT 100 MG PO (08:24)
[2024-09-06] MEDS: CRESTOR 40 MG PO (08:24)
[2024-09-06] MEDS: PACERONE 200 MG PO (08:24)
[2024-09-06] MEDS: FLAGYL 500 MG 100 IV ×3 (08:25→23:33)
[2024-09-06] MEDS: ZETIA 10 MG PO (08:25)
[2024-09-06] MEDS: BYSTOLIC 10 MG PO (08:25)
[2024-09-06] MEDS: XARELTO 15 MG PO (08:25)
[2024-09-06] MEDS: PLAVIX 75 MG PO (08:25)
[2024-09-06 08:29] LABS: ALT (SGPT) 114 U/L (0-50); AST (SGOT) 72 U/L (17-59); Albumin 4.1 g/dl (3.5-5.0); Alkaline Phosphatase 63 U/L (38-126); Blood Urea Nitrogen 10 mg/dl (9-20); Calcium 9.1 mg/dl (8.4-10.2); Carbon Dioxide 29 mmol/L (22-30); Chloride 102 mmol/L (98-107); Estimated Creatinine Clearance 110 ml/min; Glucose 100 mg/dl (70-99); Potassium 4.1 mmol/L (3.5-5.1); Sodium 138 mmol/L (135-145); Total Bilirubin 1.3 mg/dl (0.2-1.3); Total Protein 6.6 g/dl (6.3-8.2); eGFR > 60.00
--- NOTE | 2024-09-06 14:31 | PTCARENOTE ---
patient developing redness to L eye, patient denies any pain and states ' it feels like I have something in my eye.' MD Rivera notified and assessing patient at bedside. will continue to monitor.
[2024-09-06 15:00] VITALS: BP 121/87
--- NOTE | 2024-09-06 15:16 | W.PN.HOSP.TC ---
Today's Communication/Plan
-
Continue with clear liquid diet.
Continue with IV antibiotics.
Assessment / Plan
Assessment / Plan
IMPRESSION:
79-year-old with multiple comorbidities presenting with left lower quadrant abdominal pain. CT scan shows acute sigmoid diverticulitis. Patient with failure of oral antibiotics as an outpatient after 7 days. He is hemodynamically stable and
afebrile. He is otherwise well-appearing but is in significant amount of abdominal discomfort.
PLAN:
1. Acute sigmoid diverticulitis -no perforation or abscess. Other than the Augmentin no recent antibiotics or hospitalizations. Low risk for resistant organism.
-Afebrile. White count 3.6. Abdomen with tenderness but no peritoneal signs. Tolerating clear liquid diet.
- cw iv ceftriaxone/flagyl for now
- cw clear liquid diet, ADAT
- cultures if spike
- serial examinations
- pain control and antiemetics
2. CAD - No CP
- continue plavix
- continue statin/ezetimibe
- continue bblocker
3. AfIB - regular rhythm on exam.
- continu Xarelto
- continue bblocker and amio
DVT PPX - on Xarelto
code status - full code
Anticipated Discharge: 24 - 48 hours
Subjective/Interval History
-
Date of Service: September 06, 2024
Patient still with left lower quadrant abdominal pain. No diarrhea. Has not had a bowel movement in few days per patient as he is not eating much.
Denies any nausea vomiting. Tolerating clear liquids. No fever chills.
Objective Data
-
Labs:
Laboratory Results
09/06/24
06:34
WBC 3.6 L
Hgb 13.2
Hct 39.9
Plt Count 132
Sodium 138
Potassium 4.1
Chloride 102
Carbon Dioxide 29
BUN 10
Creatinine 0.7
Glucose 100 H
Calcium 9.1
Total Bilirubin 1.3
AST 72 H
ALT 114 H
Alkaline Phosphatase 63
Vital Signs:
Vital Signs
Temp Pulse Resp BP Pulse Ox
97.8 F 65 20 134/92 97
09/06/24 07:30 09/06/24 08:24 09/06/24 07:30 09/06/24 08:24 09/06/24 07:30
I&O
09/05/24 09/06/24 09/07/24
06:59 06:59 06:59
Intake Total 1774 / 177
Output Total 1900 / 1900 1480 / 1480
Balance -126 / -126 -1480 / -1480
Review of Systems
-
Constitutional: Denies Fever
Respiratory: Denies Cough or Trouble Breathing
Cardiac: Denies Chest Pain
Neuro: Denies Dizzy
Physical Exam
-
General: Comfortable
Respiratory: Non Labored Respirations; Negative Accessory Resp Muscle Use
Cardiac: Regular Rhythm and S1/S2
GI: Soft, Nondistended, Normal Bowel Sounds and Tender (Left lower quadrant but no rebound guarding rigidity.)
Neuro: AO x 3
Psych: Calm
Data Reviewed
-
Labs: Labs Reviewed by me
--- NOTE | 2024-09-06 15:58 | CM ---
Pt seen bedside w/ spouse. Initial assessment completed. Admitted for left lower quadrant abdominal pain.
Pt lives w/ spouse in a 4 story apartment, apartment is located on the 4th floor- elevator access. Pt is independent w/ ambulating w/ the use of a cane. Pt has one grab bar in the bathroom, per spouse, they are looking to add an additional bar in
the tub.
Pt denies SNF/VN/PT. Pt did engage in OP therapy following a heart attack.
Address, points of contact and insurance verified
PCP: Dr. Strickland
Pharmacy: [facility]
Plan: Home; no needs likely
[2024-09-06] MEDS: FLOMAX 0.4 MG PO (20:03)
[2024-09-06 23:02] VITALS: BP 145/95
[2024-09-06] MEDS: STERILE WATER FOR INJECTION 10 ML IV (23:33)
[2024-09-06] MEDS: ROCEPHIN 1000 MG IV (23:33)
[2024-09-07] VITALS (7 sets, daily range): BP systolic 83–136; BP diastolic 55–84
[2024-09-07] MEDS: TYLENOL 650 MG PO (00:42)
[2024-09-07] MEDS: SYNTHROID 50 MCG PO (04:27)
[2024-09-07] MEDS: ROXICODONE 5 MG PO (04:27)
--- NOTE | 2024-09-07 04:51 | FALL ---
Description of Fall:
This RN walked into patient's room, upon seeing him up and walking, gathering his belongings. This RN advised patient to sit down. As patient was going to sit down, he slid down onto the floor. Patient did not hit his head and did not sustain an
injury. BP 107/59, HR 103 Temp 97.5. Provider notified and at the bedside.
Injuries Noted:
none
Action Taken:
SOCIAL SCIENCE TEACHER notified. Assessed patient at bedside. Bed alarm applied. Restated importance of using call renae before getting out of bed.
Name of Provider Notified: Tess Klein
[2024-09-07 07:17] LABS: Hematocrit 43.4 % (39.0-52.0); Hemoglobin 14.3 g/dL (13.0-18.0); Mean Corp Hgb Conc. 32.9 g/dL (33.0-37.0); Mean Corpuscular Hgb 31.4 pg (27.0-31.0); Mean Corpuscular Volume 95.4 fL (80.0-94.0); Mean Platelet Volume 9.6 fL (7.4-10.4); Platelet Count 154 10^3/uL (130-400); Red Blood Cell Count 4.55 10^6/uL (4.70-6.10); Red Cell Dist. Width 14.2 % (11.5-14.5); White Blood Cell Count 5.2 10^3/uL (4.8-10.8)
[2024-09-07 07:47] LABS: ALT (SGPT) 107 U/L (0-50); AST (SGOT) 81 U/L (17-59); Albumin 4.3 g/dl (3.5-5.0); Alkaline Phosphatase 62 U/L (38-126); Blood Urea Nitrogen 9 mg/dl (9-20); Calcium 9.2 mg/dl (8.4-10.2); Carbon Dioxide 26 mmol/L (22-30); Chloride 103 mmol/L (98-107); Estimated Creatinine Clearance 85 ml/min; Glucose 96 mg/dl (70-99); Potassium 4.1 mmol/L (3.5-5.1); Sodium 141 mmol/L (135-145); Total Bilirubin 1.3 mg/dl (0.2-1.3); Total Protein 7.1 g/dl (6.3-8.2); eGFR > 60.00
[2024-09-07] MEDS: BYSTOLIC PO (10:27)
[2024-09-07] MEDS: FLAGYL 500 MG 100 IV ×2 (10:30→18:32)
[2024-09-07] MEDS: PACERONE 200 MG PO (10:31)
[2024-09-07] MEDS: ZOLOFT 100 MG PO (10:31)
[2024-09-07] MEDS: PLAVIX 75 MG PO (10:31)
[2024-09-07] MEDS: XARELTO 15 MG PO (10:33)
[2024-09-07] MEDS: CRESTOR 40 MG PO (10:33)
[2024-09-07] MEDS: ZETIA 10 MG PO (10:34)
--- NOTE | 2024-09-07 12:35 | W.PN.HOSP.TC ---
Today's Communication/Plan
-
DC
Assessment / Plan
Assessment / Plan
IMPRESSION:
79-year-old with multiple comorbidities presenting with left lower quadrant abdominal pain. CT scan shows acute sigmoid diverticulitis. Patient with failure of oral antibiotics as an outpatient after 7 days. He is hemodynamically stable and
afebrile. He is otherwise well-appearing but is in significant amount of abdominal discomfort.
PLAN:
1. Acute sigmoid diverticulitis -no perforation or abscess. Other than the Augmentin no recent antibiotics or hospitalizations. Low risk for resistant organism.
- Remains Afebrile. White count ok. Abdomen pain improved. Tolerating clear liquid diet.
-Advance diet to low residue diet and if he tolerates will discharge home.
-Will discharge home on cefdinir and Flagyl to complete a 10 day course
2. CAD - No CP
- continue plavix
- continue statin/ezetimibe
- continue bblocker
3. AfIB - regular rhythm on exam.
- continu Xarelto
- continue bblocker and amio
DVT PPX - on Xarelto
code status - full code
DC home once he tolerates diet
Anticipated Discharge: Today
Subjective/Interval History
-
Date of Service: September 07, 2024
Is alert and oriented. He is all dressed up to go home.
He is bit restless. He says he had lack of sleep for the last 2 days in hospital.
No agitation.
Denies nausea or vomiting. Denies abdominal pain.
Objective Data
-
Labs:
Laboratory Results
09/07/24
06:41
WBC 5.2
Hgb 14.3
Hct 43.4
Plt Count 154
Sodium 141
Potassium 4.1
Chloride 103
Carbon Dioxide 26
BUN 9
Creatinine 0.9
Glucose 96
Calcium 9.2
Total Bilirubin 1.3
AST 81 H
ALT 107 H
Alkaline Phosphatase 62
Vital Signs:
Vital Signs
Temp Pulse Resp BP Pulse Ox
97.9 F 85 24 100/60 92
09/07/24 07:30 09/07/24 07:30 09/07/24 07:30 09/07/24 10:27 09/07/24 07:30
I&O
09/06/24 09/07/24 09/08/24
06:59 06:59 06:59
Intake Total 1774 / 1774 700 / 700
Output Total 1900 / 1900 2855 / 2855
Balance -126 / -126 -2155 / -2154
Review of Systems
-
Constitutional: Denies Fever
Respiratory: Denies Trouble Breathing
Cardiac: Denies Chest Pain
Neuro: Denies Dizzy
Physical Exam
-
General: No Apparent Distress
HEENT: Moist Mucous Membranes
Respiratory: Clear to Auscultation
Cardiac: Regular Rhythm and S1/S2
GI: Soft and Nontender
Neuro: AO x 3
Psych: Calm
Data Reviewed
-
Labs: Labs Reviewed by me
--- NOTE | 2024-09-07 12:49 | W.DCSUMMARY ---
Discharge Summary
Discharge Data
Date of Admission: 09/05/24
Date of Discharge: 09/07/24
-
Pending Results: No
Hospital Course
Primary diagnosis:
Acute uncomplicated sigmoid diverticulitis
Secondary diagnosis:
Coronary artery disease
Paroxysmal atrial fibrillation
Hospital course:
79-year-old gentleman presents with left lower quadrant abdominal pain. He had outpatient evaluation which raise the concern for mild diverticulitis in the left anterior pelvis and was prescribed Augmentin. His symptoms continue to progress with
more abdominal pain. Repeat CT abdomen on admission showed mild uncomplicated sigmoid diverticulitis. He was admitted for intravenous antibiotics and he responded well to ceftriaxone and Flagyl. Once he clinically improved and was tolerating a
low residue diet he was discharged home on cefdinir and Flagyl to complete another 8 days of antibiotics.
Discharge Plan
-
Patient Disposition: Home (Routine Discharge)
Discharge Diagnosis/Procedures: Acute uncomplicated sigmoid diverticulitis
Additional Diets: Low residue diet for 2 weeks and resume your regular diet.
Activity: As tolerated
Driving Restrictions: As prior to admission
Bathing Restrictions: None
Referrals:
Abelardo Strickland DO [Family Provider] - in less than 1 week
Prescriptions:
New
polyethylene glycol 3350 17 gram Powder In Packet
17 g PO DAILYPRN PRN (Reason: constipation) Qty: 30 0RF
metronidazole 500 mg tablet
500 mg PO Q8H Qty: 24 0RF
cefdinir 300 mg capsule
300 mg PO BID Qty: 16 0RF
Continued
sertraline 100 MG tablet
100 mg PO DAILY
lorazepam 0.5 mg Tablet
0.5 mg PO Q8HPRN PRN (Reason: anxiety) Qty: 0
rosuvastatin 40 mg Tablet
40 mg PO DAILY
clopidogrel [Plavix] 75 mg tablet
75 mg PO DAILY Qty: 30 2RF
Xarelto 15 mg tablet
15 mg PO DAILY Qty: 30 2RF
ezetimibe [Zetia] 10 mg tablet
10 mg PO DAILY Qty: 30 11RF
tamsulosin 0.4 mg Capsule
0.4 mg PO HS
nebivolol 10 mg Tablet
10 mg PO DAILY
metformin 500 mg tablet
500 mg PO DAILY
amiodarone 200 mg Tablet
200 mg PO DAILY
levothyroxine [Synthroid] 50 mcg Tablet
50 mcg PO DAILY
Discontinued
amoxicillin-pot clavulanate 875-125 mg tablet
1 tab PO BID Qty: 19 0RF
Discharge Orders:
Discharge Patient (As Directed); Ordered 09/07/24
Ordered By: Amol Rivera
Discharge Date and Time
Print Language: FRISIAN
--- NOTE | 2024-09-07 14:47 | CM ---
Chart reviewed for d/c planning. Per chart, if pt tolerates diet, will d/c today
Met w/ pt, spouse and daughter bedside, awaiting to see if pt can d/c and if pt feels ok w/o pain medication
IMM reviewed, copy provided, copy placed in chart
No CM needs identified at this time
Plan: Home; no needs
[2024-09-07] MEDS: TORADOL 15 MG IV (18:33)
[2024-09-07] MEDS: NSS 1000 IV (18:33)
[2024-09-07] MEDS: SENOKOT-S 1 TABLET PO (20:44)
[2024-09-07] MEDS: FLOMAX 0.4 MG PO (20:46)
[2024-09-08] MEDS: STERILE WATER FOR INJECTION 10 ML IV ×2 (00:19→23:08)
[2024-09-08] MEDS: ROCEPHIN 1000 MG IV ×2 (00:19→23:08)
[2024-09-08] MEDS: FLAGYL 500 MG 100 IV ×4 (00:20→23:12)
[2024-09-08] MEDS: NSS 1000 IV ×2 (03:14→11:25)
[2024-09-08] MEDS: SYNTHROID 50 MCG PO (05:18)
[2024-09-08 07:30] VITALS: BP 129/85
[2024-09-08] MEDS: BYSTOLIC 10 MG PO (08:45)
[2024-09-08] MEDS: CRESTOR 40 MG PO (08:45)
[2024-09-08] MEDS: PACERONE 200 MG PO (08:46)
[2024-09-08] MEDS: PLAVIX 75 MG PO (08:46)
[2024-09-08] MEDS: ZETIA 10 MG PO (08:46)
[2024-09-08] MEDS: TORADOL 15 MG IV ×2 (08:46→14:49)
[2024-09-08] MEDS: ZOLOFT 100 MG PO (08:46)
[2024-09-08] MEDS: XARELTO 15 MG PO (08:46)
[2024-09-08 09:15] VITALS: BP 116/81; BP 123/92; BP 138/84; BP 138/96; PULSE 86; PULSE 89; PULSE 93
[2024-09-08 09:41] VITALS: BP 116/81; BP 123/92; BP 138/84; BP 138/96
--- NOTE | 2024-09-08 10:44 | PTCARENOTE ---
called this nurse into room stating that pt has a lump on the back side of his head. Pt is stating that he hit his head yesterday when he fell. Concern is that he is on Xarelto. This nurse assessed pt's head and there does seem to be a small
lump on back side of head. No ecchymosis noted. has concern that pt's mentation/cognition was very off last night. Will notify attending, Dr. Rivera
--- NOTE | 2024-09-08 11:43 | W.PN.HOSP.TC ---
Today's Communication/Plan
-
Repeat CT abdomen and pelvis
Lumbar and pelvis xray
CW IV fluids
Assessment / Plan
Assessment / Plan
IMPRESSION:
79-year-old with multiple comorbidities presenting with left lower quadrant abdominal pain. CT scan shows acute sigmoid diverticulitis. Patient with failure of oral antibiotics as an outpatient after 7 days. He is hemodynamically stable and
afebrile. He is otherwise well-appearing but is in significant amount of abdominal discomfort.
PLAN:
Acute sigmoid diverticulitis -no perforation or abscess. Other than the Augmentin no recent antibiotics or hospitalizations. Low risk for resistant organism.
- Remains Afebrile. White count ok. Abdomen pain improved. Tolerating solid diet.
-cw abx, complete a 10 day course
-Today his pain seems to originating more from the lumbar area and left pelvic area and has some radicular component.Will obtain Lumbar and pelvis xray . Doubt worsening of diverticulitis -obtain repeat CT
- Avoid narctotics ; will keep on Toradol for severe pain. Add tramadol for mod pain.Pt is on plavix and has right renal atrophy.
Orthostatic hypotension -today not symptomatic. Continue with IV fluids for today. Follow orthostatic blood pressure checks.
CAD - No CP
- continue plavix
- continue statin/ezetimibe
- continue bblocker
AfIB - regular rhythm on exam.
- continu Xarelto
- continue bblocker and amio
DVT PPX - on Xarelto
code status - full code
DW family
DW RN
Total time spent on today's encounter was 52 minutes which included time spent in counseling the patient/family regarding diagnosis and treatment plan as listed above, goals of care, and symptom management. Case was discussed with nursing staff,
specialists, and care coordinators/case management. All labs and imaging personally reviewed by me. Remainder the time spent in detailed review of previous records, lab data, imaging, and other medical provider documentation.
Anticipated Discharge: 24 - 48 hours
Subjective/Interval History
-
Date of Service: September 08, 2024
Yesterday he was noted to be confused. Family today feels his better.
Yesterday he was dizzy with orthostatic drop but today he is walking to the bathroom with a walker by himself and denies dizziness.
Apparently he had little sleep in the room and initially was told there was no head involved but family thinks there is a bump on his head on the right side. He denies any headache.
No nausea vomiting and tolerating solid diet.
Patient complains of pain-he points to the left hip area and says it is his hip pain and sometimes it comes to the left leg. No prior trauma to the back no prior vertebral compression fracture or no chronic back pain.
Objective Data
-
Vital Signs:
Vital Signs
Temp Pulse Resp BP Pulse Ox
98.2 F 85 18 129/85 93
09/08/24 07:30 09/08/24 07:30 09/08/24 07:30 09/08/24 07:30 09/08/24 08:55
I&O
09/07/24 09/08/24 09/09/24
06:59 06:59 06:59
Intake Total 700 / 700 2235 / 2235
Output Total 2855 / 2855 550 / 550
Balance -2155 / -2155 1685 / 1685
Review of Systems
-
Constitutional: Denies Fever
Respiratory: Denies Trouble Breathing
Cardiac: Denies Chest Pain
Physical Exam
-
General: Comfortable
Respiratory: Non Labored Respirations; Negative Accessory Resp Muscle Use
Cardiac: Regular Rhythm and S1/S2
GI: Soft, Nontender (today) and Nondistended; Negative Normal Bowel Sounds
Musculoskeletal: Other (Tenderness in mid lumbar area. Some pain with acitivity - catches his left lower /pelvic area with left leg straight raise)
Neuro: AO x 3
Psych: Calm; Negative Confused (today) or Agitated
Data Reviewed
-
Labs: Labs Reviewed by me
[2024-09-08] MEDS: OMNIPAQUE 50 ML PO (12:14)
--- NOTE | 2024-09-08 12:29 | CM ---
Chart reviewed for d/c planning and hospital course updates. Per chart, pt experienced a fall yesterday.
Therapy rec HH at d/c and RW. Will ask attending for script for RW.
CM will cont to follow for d/c needs
Plan: Home w/ HH if agreeable and RW. PT will provide RW
[2024-09-08 15:00] VITALS: BP 139/80
--- NOTE | 2024-09-08 18:50 | W.PN.UPDATE ---
Update Note
Progress Note Update
Late entry :
This note is from 09/07/24 at aprox 0500 when i assessed pt for reports of a witnessed fall. RN stated she walked into patient's room when she was seeing pt up and walking, gathering his belongings. RN advised patient to sit down. As patient was
going to sit down, he slid down onto the floor. Patient did not hit his head and did not sustain an injury.
At bedside pt AAOX3. Stated he slipped because he was wearing regular socks not hospital non slip socks. PT denies hitting head. Nurse was in room at the time and also stated he did not hit head. Pt stated he landed on his butt. C/o left hip pain
but stated this is his normal hip pain and is currently unchanged. Able to WRIGHT. Explained importance of calling for assistance to avoid injury. Explained that if he sould have any new pain anywhere to let nurse be aware.
[2024-09-08] MEDS: FLOMAX 0.4 MG PO (22:30)
[2024-09-08 23:18] VITALS: BP 129/76
[2024-09-09] MEDS: NSS 1000 IV (01:01)
[2024-09-09] MEDS: ULTRAM 50 MG PO (02:22)
[2024-09-09] MEDS: SYNTHROID 50 MCG PO (05:46)
[2024-09-09] MEDS: TYLENOL 650 MG PO (05:49)
[2024-09-09 07:13] VITALS: BP 120/71
[2024-09-09] MEDS: FLAGYL 500 MG 100 IV ×3 (08:52→23:29)
[2024-09-09] MEDS: XARELTO 15 MG PO (08:54)
[2024-09-09] MEDS: CRESTOR 40 MG PO (08:55)
[2024-09-09] MEDS: ZETIA 10 MG PO (08:55)
[2024-09-09] MEDS: PLAVIX 75 MG PO (08:55)
[2024-09-09] MEDS: BYSTOLIC 10 MG PO (09:00)
[2024-09-09] MEDS: PACERONE 200 MG PO (09:00)
[2024-09-09] MEDS: ZOLOFT 100 MG PO (09:00)
[2024-09-09] MEDS: TORADOL 15 MG IV ×2 (09:14→20:32)
--- NOTE | 2024-09-09 14:11 | W.PN.HOSP.TC ---
Today's Communication/Plan
-
DC
Assessment / Plan
Assessment / Plan
IMPRESSION:
79-year-old with multiple comorbidities presenting with left lower quadrant abdominal pain. CT scan shows acute sigmoid diverticulitis. Patient with failure of oral antibiotics as an outpatient after 7 days. He is hemodynamically stable and
afebrile. He is otherwise well-appearing but is in significant amount of abdominal discomfort.
PLAN:
Acute sigmoid diverticulitis -no perforation or abscess. Other than the Augmentin no recent antibiotics or hospitalizations. Low risk for resistant organism.
-Remains Afebrile. White count ok. Abdomen pain improved. Tolerating solid diet.
- cw abx, complete a 10 day course
Lumbar back pain with radiculopathy to left hip and thigh
- He current pain seems to originate more from the lumbar area and left pelvic area and has some radicular component. 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 Doubt worsening of diverticulitis -
repeat CT abdomen pelvis shows no complications. Advised to see orthopedic as an outpatient. Prescribed tramadol for pain.
- Avoid narctotics due to SE of confusion
Orthostatic hypotension -not symptomatic and improved. DC IV fluids .
CAD - No CP
- continue plavix
- continue statin/ezetimibe
- continue bblocker
AfIB - regular rhythm on exam.
- continu Xarelto
- continue bblocker and amio
DVT PPX - on Xarelto
code status - full code
DW family
DW RN
DC home after seen by GI today and if ok from their standpoint
Total time of discharge 32 minutes
Anticipated Discharge: Today
Subjective/Interval History
-
Date of Service: September 09, 2024
Patient tolerating diet without nausea vomiting. No diarrhea. No dizziness.
When asked about pain he still points towards the left lower back and the left hip area laterally. He states sometimes it caused to the left knee with movement. It is worse with movement. He has seen orthopedics and had injection into the left
hip apparently. This is going on for a month apparently. No prior MRIs done.
Objective Data
-
Vital Signs:
Vital Signs
Temp Pulse Resp BP Pulse Ox
98.5 F 86 16 122/89 96
09/09/24 07:13 09/09/24 09:00 09/09/24 07:13 09/09/24 09:00 09/09/24 07:13
I&O
09/08/24 09/09/24 09/10/24
06:59 06:59 06:59
Intake Total 2235 / 2235 3360 / 3360
Output Total 550 / 550 1725 / 1725
Balance 1685 / 1685 1635 / 1635
Review of Systems
-
Constitutional: Denies Fever
Respiratory: Denies Trouble Breathing
Cardiac: Denies Chest Pain
Physical Exam
-
General: Comfortable
Respiratory: Non Labored Respirations; Negative Accessory Resp Muscle Use
Cardiac: Regular Rhythm and S1/S2
GI: Soft, Nontender, Nondistended and Normal Bowel Sounds
Genito-urinary: Other (lower back towards left of midline )
Neuro: AO x 3
Psych: Calm
Data Reviewed
-
Diagnostic Radiology: Report Reviewed by me (hip and lumbar spine)
CT Scan: Report Reviewed by me (head and A/P)
Labs: Labs Reviewed by me
[2024-09-09 15:15] VITALS: BP 119/73
[2024-09-09] MEDS: NSS IV (15:16)
--- NOTE | 2024-09-09 17:56 | CON.CRS ---
Consultation
-
Reason for Consultation: diverticulitis
Medical History
-
Chief Complaint: left hip pain
History of Present Illness:
79-year-old male on anticoagulation for cardiac issues (6 coronary stents and atrial fibrillation) with 3 weeks of left hip pain of unclear etiology. He came to the ER on 08/29/2024 with this complaint and underwent a CT scan of the abdomen and
pelvis of which the images and report are available for review. This reveals mild inflammation of the proximal sigmoid in the background of diverticulosis with an enlarged inflamed diverticulum most consistent with mild diverticulitis. There is no
evidence for perforation or abscess. He was sent home on oral antibiotics. Unfortunately he admits that the pain worsened and he came back into the hospital on 09/04/2024. He had a repeat CT at that point in time showing persistence of the mild
proximal sigmoid diverticulitis. He has been on antibiotics as an inpatient with persistent symptoms despite tolerance of diet and lack of fevers or chills. Repeat CT on 09/08/2024 yet again revealed mild proximal sigmoid diverticulitis. I was
consulted for colorectal surgical opinion regarding his situation. Of note his last colonoscopy was in [address] [place]. This revealed a few benign polyps. Significant diverticulosis particular in the left side was noted. There are some
erythema of the sigmoid as well. There was consideration today for discharge to home on oral antibiotics. On discussion with the patient he does have the hip pain as mentioned. Denies fevers chills nausea or vomiting. Has been having bowel
function. On review of blood work, his WBC has never been elevated in the recent past. Interestingly there has not been a left shift either. Electrolytes are unremarkable. He has a remote history of appendectomy. He also underwent what sounds
like left kidney surgery for nephrolithiasis and ureteral stricture many years ago via a flank approach. His kidneys have not been an issue since.
Past Medical History
Past Medical History: Arrhythmias (Atrial fibrillation), CAD (History of STEMI), Diverticulitis, Hypercholesterolemia, Hypothyroidism, NIDDM and Other (BPH)
Past Surgical History: Appendectomy, Orthopedic (Right shoulder surgery) and Other (Left kidney surgery)
Social History
Tobacco: Non-Smoker
Alcohol: Occasional
Personal:
Living: With Family
Employment: Retired
Family History
Family History: Reviewed & Noncontributory
Allergies / Home Medications
Allergy/AdvReac Type Severity Reaction Status Date / Time
No Known Allergies Allergy Verified 06/14/24 06:17
�Medication �Instructions �Recorded �Confirmed �Type
sertraline 100 mg tablet 100 mg PO DAILY Mental 12/22/21 09/05/24 History
Health/Anxiety
lorazepam 0.5 mg tablet 0.5 mg PO Q8HPRN PRN anxiety ##0 12/30/21 09/05/24 History
rosuvastatin 40 mg tablet 40 mg PO DAILY High Cholesterol 10/11/23 09/05/24 History
clopidogrel 75 mg tablet (Plavix) 75 mg PO DAILY Heart 10/12/23 09/05/24 Rx
disease/condition #30 tabs
ezetimibe 10 mg tablet (Zetia) 10 mg PO DAILY High cholesterol 10/12/23 09/05/24 Rx
#30 tabs
rivaroxaban 15 mg tablet (Xarelto) 15 mg PO DAILY Heart 10/12/23 09/05/24 Rx
disease/condition #30 tabs
nebivolol 10 mg tablet 10 mg PO DAILY 02/24/24 09/05/24 History
tamsulosin 0.4 mg capsule 0.4 mg PO HS 02/24/24 09/05/24 History
amiodarone 200 mg tablet 200 mg PO DAILY 05/26/24 09/05/24 History
metformin 500 mg tablet 500 mg PO DAILY 05/26/24 09/05/24 History
levothyroxine 50 mcg tablet 50 mcg PO DAILY 09/05/24 09/05/24 History
(Synthroid)
cefdinir 300 mg capsule 300 mg PO BID #16 caps 09/07/24 Rx
metronidazole 500 mg tablet 500 mg PO Q8H #24 tabs 09/07/24 Rx
polyethylene glycol 3350 17 gram 17 g PO DAILYPRN PRN constipation 09/07/24 Rx
oral powder packet #30 ea
tramadol 50 mg tablet 50 mg PO Q8H PRN moderate pain #20 09/09/24 Rx
tabs
Review of Systems
-
A 10 point review of systems was completed, and was negative except as per HPI.
Physical Exam
Vital Signs
Temp 98.5 F 09/09/24 15:15
Pulse 81 09/09/24 15:15
Resp Rate 16 09/09/24 15:15
Blood pressure 119/73 09/09/24 15:15
SaO2 96 09/09/24 15:15
Body Mass Index (BMI) 31.0
Lab Results / Allergies
09/07/24 06:41
09/07/24 06:41
WBC 5.2 10^3/uL (4.8-10.8) 09/07/24 06:41
Hgb 14.3 g/dL (13.0-18.0) 09/07/24 06:41
Hct 43.4 % (39.0-52.0) 09/07/24 06:41
Plt Count 154 10^3/uL (130-400) 09/07/24 06:41
Abs Immat Gran (auto) 0.0 10^3/uL (0-0.05) 09/04/24 18:40
Neutrophils % 61.7 % (42.2-75.2) 09/04/24 18:40
Allergy/AdvReac Type Severity Reaction Status Date / Time
No Known Allergies Allergy Verified 06/14/24 06:17
Physical Exam
General: Well Developed
HEENT: Normocephalic and Atraumatic
Respiratory: Clear
Cardiac: Regular Rhythm
GI: Soft and Tender (Mild lower abdominal)
Skin: Warm and Dry
Neuro: AO x 3
Psych: Calm
Data Reviewed
-
CT Scan: Image Personally Visualized and interpreted, Report Reviewed by me, Discussed with Patient and Discussed with Family
Labs: Labs Reviewed by me
Total Time Spent with Patient (in minutes): 1.5 hours including review of records, images, and discussions
Assessment / Plan
-
79-year-old male with significant cardiac history who is on 2 blood thinners and has 3 weeks of left hip pain of unclear etiology. He has a sequential CTs showing mild proximal sigmoid diverticulitis with a large diverticulum without evidence for
perforation or abscess. Unfortunately the CTs and the pain have not improved despite antibiotics. Also interestingly a colonoscopy in 2017 confirmed diverticulosis and showed some erythema of the sigmoid area which might be consistent with scad.
I had a lengthy discussion with the patient and his family at the bedside. I am not utterly convinced that the in the left hip is related to the diverticulitis, although this is possible. I am concerned that the sigmoid inflammation (as well as
the pain) has persisted radiographically despite antibiotics on repeat imaging. Given his challenging circumstances, 1 option would be to keep him here in the hospital over the next few days and obtain consultations from ID, orthopedics, and
cardiology to try to further sort his situation out and potentially optimize him/clear him for potential colorectal surgery. Looking at my schedule, I may have an opening for a sigmoidectomy 2 from now. The argument for sigmoidectomy
would be the persistence of the inflammation and the pain despite antibiotics. He may have diverticulitis of what I would describe as a 'smoldering' variety. If all agree, after the consults are done would recommend sending the patient home on a
course of antibiotics with plans for colonoscopy to from now by either GI or me followed the next day with a robotic sigmoidectomy. The patient understands that if he does undergo surgery and everything goes smoothly, the pain may
persist thereafter. In that circumstance at least his diverticulitis would have been dealt with and the pain would have to be ascribed perhaps to orthopedic or musculoskeletal source. The patient is willing to undergo the above consultations. He
is somewhat reluctant to consider surgery if he can avoid it. This is understandable. My above thoughts have been conveyed to Dr. Rivera of the hospital service who will enact the consults.
Thanks.
--- NOTE | 2024-09-09 19:31 | W.PN.UPDATE ---
Update Note
Progress Note Update
Added micafungin 100 mg q [address] Rivera and ID consult recommendations.
[2024-09-09] MEDS: ATIVAN 0.5 MG PO (20:32)
[2024-09-09] MEDS: MYCAMINE 105 MG IV (21:03)
[2024-09-09] MEDS: FLOMAX 0.4 MG PO (22:43)
[2024-09-09 23:30] VITALS: BP 129/79
[2024-09-09] MEDS: STERILE WATER FOR INJECTION 10 ML IV (23:30)
[2024-09-09] MEDS: ROCEPHIN 1000 MG IV (23:30)
[2024-09-10] MEDS: SYNTHROID 50 MCG PO (05:44)
[2024-09-10 07:00] VITALS: BP 145/78
[2024-09-10 07:46] VITALS: BP 145/78
[2024-09-10] MEDS: FLAGYL 500 MG 100 IV (10:39)
[2024-09-10] MEDS: PLAVIX 75 MG PO (10:41)
[2024-09-10] MEDS: XARELTO 15 MG PO (10:41)
[2024-09-10] MEDS: ZETIA 10 MG PO (10:41)
[2024-09-10] MEDS: ZOLOFT 100 MG PO (10:41)
[2024-09-10] MEDS: CRESTOR 40 MG PO (10:42)
[2024-09-10] MEDS: BYSTOLIC 10 MG PO (10:42)
[2024-09-10] MEDS: PACERONE 200 MG PO (10:42)
--- NOTE | 2024-09-10 12:20 | W.PN.HOSP.TC ---
Today's Communication/Plan
-
CW ABX
Antifungal added
Appt CRS input
Await ID and ortho input
Assessment / Plan
Assessment / Plan
IMPRESSION:
79-year-old with multiple comorbidities presenting with left lower quadrant abdominal pain. CT scan shows acute sigmoid diverticulitis. Patient with failure of oral antibiotics as an outpatient after 7 days. He is hemodynamically stable and
afebrile. He is otherwise well-appearing but is in significant amount of abdominal discomfort.
PLAN:
Acute sigmoid diverticulitis -no perforation or abscess. Other than the Augmentin no recent antibiotics or hospitalizations. Low risk for resistant organism.
-Remains Afebrile. White count ok. Abdomen pain improved. Tolerating solid diet.
-Repeat CT shows still persistent mild diverticulitis. In view of poor response consulted colorectal surgery and ID. Micafungin added. Colorectal surgery recommending surgical intervention if nonresponsive. Unclear if all his pain is abdominal.
Rule out radiation pain from the left lower back on the left hip. Orthopedics consulted.
- cw abx and antifungal
- Check CRP/ESR
Lumbar back pain with radiculopathy to left hip and thigh
- He current pain seems to originate more from the lumbar area and left pelvic area and has some radicular component. 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 Doubt worsening of diverticulitis -
repeat CT abdomen pelvis shows no complications. Ortho consulted . Prescribed tramadol for pain.
- Avoid narctotics due to SE of confusion
Orthostatic hypotension -not symptomatic and improved. DCed IV fluids .
CAD - No CP
- continue plavix
- continue statin/ezetimibe
- continue bblocker
- DW Cards today about preop cardiac eval-as a surgery is planned as early elective they would see him in the office after discharge and perform preop cardiac eval.
AfIB - regular rhythm on exam.
- continu Xarelto
- continue bblocker and amio
DVT PPX - on Xarelto
code status - full code
DW family
DW RN
Anticipated Discharge: > 48 hours
Subjective/Interval History
-
Date of Service: September 10, 2024
Patient says he had breakfast without much issues. No nausea vomiting. Feels well today. Denies any abdominal pain and when asked about pain symptom he points to with the left lower back.
Not bowel movement 2 days ago.
No radicular pain to the leg today.
No fever chills.
Objective Data
-
Vital Signs:
Vital Signs
Temp Pulse Resp BP Pulse Ox
98.2 F 84 15 145/78 95
09/10/24 07:00 09/10/24 07:00 09/10/24 07:00 09/10/24 07:00 09/10/24 07:00
I&O
09/09/24 09/10/24 09/11/24
06:59 06:59 06:59
Intake Total 3360 / 3360 1030 / 1030
Output Total 1725 / 1725 750 / 750
Balance 1635 / 1635 280 / 280
Review of Systems
-
Respiratory: Denies Trouble Breathing
Cardiac: Denies Chest Pain
Neuro: Denies Dizzy
Physical Exam
-
General: No Apparent Distress
HEENT: Moist Mucous Membranes
Respiratory: Non Labored Respirations; Negative Accessory Resp Muscle Use
Cardiac: Regular Rhythm and S1/S2
GI: Soft, Nontender, Nondistended and Normal Bowel Sounds
Neuro: AO x 3
--- NOTE | 2024-09-10 12:35 | CON.ORTHO ---
Consultation - Orthopedics
History
HPI: 79-year-old male presented to the emergency room several days ago complaints of left lower quadrant abdominal pain after being diagnosed with acute sigmoid diverticulitis the prior week. Ultimately was admitted to the hospital service. He
underwent additional imaging that confirmed some signs of sigmoid diverticulitis. Colorectal surgery is following patient. He has been on antibiotics. There was some question regarding potential alternative pain generators including back and hip.
Orthopedics was consulted to evaluate this further. I did actually see the patient on outpatient basis about a month ago. He reported that he been complaining of on and off left hip leg and back pain for several years. At that office visit he
did undergo a greater trochanteric bursa corticosteroid injection. He reports that this really did not substantially change his symptoms. He does have a history of lumbar back pain and I did review records with him that indicated that he had
undergone previous L4-L5 L5-S1 lumbar medial branch blocks in 2017 with good relief. Currently patient is not really complaining of pain at rest in bed. He localizes pain to the left lower back. Of note he also has a history of kidney surgery in
the past. He does report baseline altered sensation bilateral lower extremities. He does have a history of diabetes.
Allergies / Home Medications
Past medical history: A-fib on Xarelto, coronary artery disease, hypertension, hypercholesterolemia, hypothyroidism, diverticulosis, pneumonia
Past surgical history: Appendectomy, cardiac stent placement, right shoulder surgery, kidney surgery for congenital solitary kidney
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
Family history: Not pertinent
Allergy/AdvReac Type Severity Reaction Status Date / Time
No Known Allergies Allergy Verified 06/14/24 06:17
�Medication �Instructions �Recorded
sertraline 100 mg tablet 100 mg PO DAILY Mental 12/22/21
Health/Anxiety
lorazepam 0.5 mg tablet 0.5 mg PO Q8HPRN PRN anxiety ##0 12/30/21
rosuvastatin 40 mg tablet 40 mg PO DAILY High Cholesterol 10/11/23
clopidogrel 75 mg tablet (Plavix) 75 mg PO DAILY Heart 10/12/23
disease/condition #30 tabs
ezetimibe 10 mg tablet (Zetia) 10 mg PO DAILY High cholesterol 10/12/23
#30 tabs
rivaroxaban 15 mg tablet (Xarelto) 15 mg PO DAILY Heart 10/12/23
disease/condition #30 tabs
nebivolol 10 mg tablet 10 mg PO DAILY 02/24/24
tamsulosin 0.4 mg capsule 0.4 mg PO HS 02/24/24
amiodarone 200 mg tablet 200 mg PO DAILY 05/26/24
metformin 500 mg tablet 500 mg PO DAILY 05/26/24
levothyroxine 50 mcg tablet 50 mcg PO DAILY 09/05/24
(Synthroid)
cefdinir 300 mg capsule 300 mg PO BID #16 caps 09/07/24
metronidazole 500 mg tablet 500 mg PO Q8H #24 tabs 09/07/24
polyethylene glycol 3350 17 gram 17 g PO DAILYPRN PRN constipation 09/07/24
oral powder packet #30 ea
tramadol 50 mg tablet 50 mg PO Q8H PRN moderate pain #20 09/09/24
tabs
Vital Signs / Lab Results
Temp Pulse Resp BP Pulse Ox
98.2 F 84 15 145/78 95
09/10/24 07:00 09/10/24 07:00 09/10/24 07:00 09/10/24 07:00 09/10/24 07:00
09/07/24 06:41
09/07/24 06:41
10 point review systems reviewed and negative unless otherwise stated
General: Pleasant, no acute distress at rest in bed
Musculoskeletal left lower extremity
Skin intact, no erythema or ecchymotic staining
There is no pain with passive internal ex rotation of the left hip
Nontender to palpation over groin and lateral trochanteric flare
No radicular symptoms are recreated with straight leg raise testing
Negative Stinchfield
5-5 strength equal bilateral lower extremities L2-S1
Altered sensation equal bilateral lower extremities in a stocking glove distribution however no dermatomal altered sensation on exam
Negative Estelle's
Hyperreflexive Achilles tendon and patellar tendon reflexes
Negative clonus
There is some mild discomfort with palpation of the left lower abdominal quadrant
Diagnostic studies
X-ray lumbar spine and left hip reviewed taken during this hospitalization. There is evidence of multilevel degenerative changes lower lumbar spine most predominantly L4-L5 L5-S1 with associated facet joint arthrosis. No significant joint space
narrowing left hip. Radiology report notes minimal osteophytic formation and minimal joint space loss left hip.
Assessment / Plan
79-year-old male multiple medical comorbidities left back/hip/abdominal pain of unknown definitive etiology. From an orthopedic standpoint, he did undergo a greater trochanteric bursa corticosteroid junction about a month ago without relief. He
does have a history of multilevel lumbar degenerative disc disease and has undergone injections for his back in the past with moderate success. Certainly I think it is reasonable that at least some of the pain could be referred pain from his back
although his examination is fairly benign today.. I had a discussion with him regarding treatment options. I did discuss that if he really would like to rule out all other potential pain generators prior to considering colorectal surgery, would
recommend that he follow-up on an outpatient basis with spine team to discuss potentially undergoing a repeat injections in his back. I explained to him that this would be for both hopefully therapeutic as well as diagnostic purposes. Certainly he
could have multiple pain generators but I think this would allow him to better understand how much of the pain is potentially emanating from his lumbar spine. He did state his understanding to this. Certainly he could still have symptoms related
to sigmoid diverticulitis. Would defer treatment and management of this to the colorectal service. Certainly if I can be of any further help or answer any further questions please reach out.
--- NOTE | 2024-09-10 13:27 | CON.ID ---
Consultation
-
Date/Time Consultation Requested: 09/09/24 17:30
Date/Time Consultation Performed: 09/10/24 13:27
Requesting Provider: Dr Rivera
Performing Provider: Dr Bryant
Reason for Consultation: DIVERTICULITIS
Chief Complaint / Past History
Chief Complaint
Left lower quadrant abdominal pain
History of Present Illness
Mr Whiting is a 79-year-old with past medical history significant for DM2 presenting to the emergency department 09/05 with persistent left lower quadrant abdominal pain after initial diagnosis of acute sigmoid diverticulitis 7 days ago treated with
Augmentin. L eft lower quadrant abdominal pain present for about 3 weeks. Initially was diagnosed as hip pain/bursitis and received steroid injections. Then after about 2 weeks without any improvement he came to the emergency department, CT scan
showed acute sigmoid diverticulitis. No history of diverticulitis known. He said that he was started on Augmentin. Despite this he continued to have lower left quadrant abdominal pain. He denies any vomiting or nausea. Pain is worse with any
movement. He is unable to sleep. No fevers at home, abdominal distention or bloating. Returned to the emergency department due to persistent symptoms.
Since arrival here he has been afebrile, bp stable, wbc initially 4.2, hgb 14, plt 158, no L shift, cr 0.8, t bili initially 1.5 today 1.3, ast 87, alt 127, 09/08 CT a/p with IV and oral contrast: mild diverticulitis in the sigmoid, severe congenital
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
for assistance with management.
Past History
Additional Past Medical History:
Arrhythmia (A.fib on Xarelto), CAD, HTN, Hypercholesterolemia, Hypothyroidism and Other (diverticulosis, coronary artery disease status post stent, recent UTI, Bacterial Pneumonia, Shingles, solitary kidney
Additional Past Surgical History:
Appendectomy, Cardiac (stent), Orthopedic (right shoulder) and Other (kidney surgery decades ago for stones (congenital solitary kidney))
Allergy History:
No Known Allergies Allergy (Verified 06/14/24 06:17)
Medications Reviewed: Yes
Social History
Tobacco: Non-Smoker
Alcohol: Occasional
Drug: None
Family History
Family History: Not Pertinent
Review of Systems
Review of Systems
General: Negative Fever or Chills
All systems: All other systems were reviewed and were negative
Vital Signs
Temp Pulse Resp BP Pulse Ox
98.2 F 84 15 145/78 95
09/10/24 07:00 09/10/24 07:00 09/10/24 07:00 09/10/24 07:00 09/10/24 07:00
Physical Exam
Physical Exam
Constitutional: No Acute Distress and Chronically Ill
Cardiovascular: Regular Rate and S1/S2; Negative Murmur or Rub
Pulmonary: Clear and Symmetric; Negative Wheezes, Rales or Rhonchi
Gastrointestinal: Soft, Non Tender, Non Distended and Normal Bowel Sounds
Skin: Warm and Dry; Negative Rash or Jaundice
Lab / Diagnostic Study Results
09/07/24 06:41
09/07/24 06:41
Abs Immat Gran (auto) 0.0 10^3/uL (0-0.05) 09/04/24 18:40
Absolute Neuts (auto) 2.6 10^3/uL (1.4-6.5) 09/04/24 18:40
Absolute Lymphs (auto) 0.9 10^3/uL (1.2-3.4) L 09/04/24 18:40
Absolute Monos (auto) 0.5 10^3/uL (0.1-0.6) 09/04/24 18:40
Absolute Basos (auto) 0.0 10^3/uL (0-0.2) 09/04/24 18:40
Immature Gran % 0.2 % (0-0.5) 09/04/24 18:40
Neutrophils % 61.7 % (42.2-75.2) 09/04/24 18:40
Lymphocytes % 22.2 % (20.5-51.1) 09/04/24 18:40
Monocytes % 11.1 % (1.7-9.3) H 09/04/24 18:40
Eosinophils % 4.1 % (0-6) 09/04/24 18:40
Basophils % 0.7 % (0-2) 09/04/24 18:40
Assessment / Plan
Persistent Diverticulitis
Functionally Single Kidney
- given clinical response (resolved pain overnight) with addition of micafungin will continue ceftriaxone (optimized dose) and metronidazole (high bioavailability oral - converted to PO)
- continue micafungin
- esr and crp today and repeat on wednesday
- follow physical exam
--- NOTE | 2024-09-10 14:19 | W.PN.CRS1 ---
Today's Communication / Plan
-
continue diet
iv antibiotics
no plans for surgery this admission
Assessment/Plan
-
79-year-old male with significant cardiac history who is on 2 blood thinners and has 3 weeks of left hip pain of unclear etiology
Vitals normal, no labs today (WBC 5.2 yesterday)
-ID/orthopedics consults, will see cards as outpatient
-Continue IV antibiotics
-No plans for surgery this admission, but have suggested to follow up in the office in 1-2 weeks for further discussions with Dr. Lin regarding colonoscopy/surgery (patient is not that interested at this time)
-On plavix/xarelto
Subjective Data
Subjective Data
Date of Service: September 10, 2024
Patient states he feels well today. He has no complaints. He denies nausea or vomiting.
Objective Data
-
Vital Signs
Temp Pulse Resp BP Pulse Ox
98.2 F 84 15 145/78 95
09/10/24 07:00 09/10/24 07:00 09/10/24 07:00 09/10/24 07:00 09/10/24 07:00
Intake & Output
09/09/24 09/10/24 09/11/24
06:59 06:59 06:59
Intake Total 3360 / 3360 1030 / 1030
Output Total 1725 / 1725 750 / 750
Balance 1635 / 1635 280 / 280
Intake:
Oral fluids 1700 / 1700 240 / 240
IV fluids (Total) 1360 / 1360 690 / 690
IV piggybacks 300 / 300 100 / 100
Output:
Urine, Voided 1725 / 1725 750 / 750
Other:
Number of approximated MODERATE 2
amounts of urine
Lab Results
09/07/24 06:41
09/07/24 06:41
Physical Exam
-
General: No Acute Distress and AOx3
Abdomen: Soft, Non Distended and Tender (mild lower abdomen (improving))
Skin: Warm and Dry
[2024-09-10 15:28] VITALS: BP 123/66
[2024-09-10 15:52] LABS: Erythrocyte Sed Rate 21 mm/hour (0-20)
[2024-09-10] MEDS: FLAGYL 500 MG PO ×2 (18:41→23:12)
[2024-09-10] MEDS: TORADOL 15 MG IV (18:44)
[2024-09-10] MEDS: MYCAMINE 105 MG IV (21:38)
[2024-09-10] MEDS: ROCEPHIN 2000 MG IV (21:38)
[2024-09-10] MEDS: STERILE WATER FOR INJECTION 20 ML IV (21:38)
[2024-09-10] MEDS: FLOMAX 0.4 MG PO (21:39)
[2024-09-10] MEDS: ATIVAN 0.5 MG PO (22:08)
[2024-09-10 23:19] VITALS: BP 139/88
[2024-09-11] MEDS: SYNTHROID 50 MCG PO (06:07)
[2024-09-11] MEDS: ULTRAM 50 MG PO (06:10)
[2024-09-11 07:00] VITALS: BP 134/90
[2024-09-11 07:20] LABS: Hematocrit 38.9 % (39.0-52.0); Hemoglobin 12.6 g/dL (13.0-18.0); Mean Corp Hgb Conc. 32.4 g/dL (33.0-37.0); Mean Corpuscular Hgb 31.2 pg (27.0-31.0); Mean Corpuscular Volume 96.3 fL (80.0-94.0); Mean Platelet Volume 9.8 fL (7.4-10.4); Platelet Count 137 10^3/uL (130-400); Red Blood Cell Count 4.04 10^6/uL (4.70-6.10); Red Cell Dist. Width 14.9 % (11.5-14.5); White Blood Cell Count 3.6 10^3/uL (4.8-10.8)
[2024-09-11 07:47] LABS: Blood Urea Nitrogen 11 mg/dl (9-20); Carbon Dioxide 26 mmol/L (22-30); Chloride 107 mmol/L (98-107); Estimated Creatinine Clearance 85 ml/min; Glucose 105 mg/dl (70-99); Potassium 4.2 mmol/L (3.5-5.1); Sodium 142 mmol/L (135-145); eGFR > 60.00
--- NOTE | 2024-09-11 08:09 | W.PN.HOSP.TC ---
Today's Communication/Plan
-
No Tramadol or Amiodarone, patient on Fluconazole. Appreciate ID.
PT/OT re-evaluation, CM re-evaluation
Discharge planning
Assessment / Plan
Assessment / Plan
Physical Exam
General: No Apparent Distress
HEENT: Moist Mucous Membranes
Respiratory: Clear to Auscultation Bilaterally
Cardiac: Regular Rhythm and S1/S2
GI: Soft, Nontender, Nondistended and Normal Bowel Sounds
Neuro: AAO x 3
Assessment/Plan
79-year-old with multiple comorbidities presenting with left lower quadrant abdominal pain. CT scan shows acute sigmoid diverticulitis. Patient with failure of oral antibiotics as an outpatient after 7 days. He is hemodynamically stable and
afebrile. He is otherwise well-appearing but is in significant amount of abdominal discomfort.
Acute sigmoid diverticulitis -no perforation or abscess. Other than the Augmentin no recent antibiotics or hospitalizations. Low risk for resistant organism.
-Remains Afebrile. White count ok. Abdomen pain improved. Tolerating solid diet.
-Repeat CT showed still persistent mild diverticulitis. In view of poor response, colorectal surgery and ID were previously consulted. Micafungin added. Colorectal surgery recommended surgical intervention if nonresponsive. Unclear if all his
pain is abdominal. Rule out radiation pain from the left lower back on the left hip. Orthopedics consulted previously.
- cw abx and antifungal: ID is switching to cefdinir/metro/fluconazole through 09/15/24
Lumbar back pain with radiculopathy to left hip and thigh
- He current pain seems to originate more from the lumbar area and left pelvic area and has some radicular component. 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 Doubt worsening of diverticulitis -
repeat CT abdomen pelvis shows no complications. Ortho consulted . Tramadol stopped as per ID as patient is on Fluconazole.
- Avoid narctotics due to SE of confusion
- Follow-up with spine specialists outpatient
Orthostatic hypotension - not symptomatic and improved. DC'd IV fluids .
CAD - No CP
- continue plavix
- continue statin/ezetimibe
- continue bblocker
- DW Cards today about preop cardiac eval-as a surgery is planned as early elective they would see him in the office after discharge and perform preop cardiac eval.
AfIB - regular rhythm on exam.
- continu Xarelto
- continue bblocker
- Amiodarone stopped as per ID (patient is on Fluconazole); ID spoke with his motion picture set worker Dr Hamilton -- patient can get follow up EKG in their office in a few days and will need a follow up with them outpatient.
DVT PPX - on Xarelto
code status - full code
DW family
DW RN
Anticipated Discharge: Within 24 hours
Subjective/Interval History
-
Date of Service: September 11, 2024
Patient was seen and examined. He denied any new symptoms or complaints.
Objective Data
-
Labs:
Laboratory Results
09/11/24
06:15
WBC 3.6 L
Hgb 12.6 L
Hct 38.9 L
Plt Count 137
Sodium 142
Potassium 4.2
Chloride 107
Carbon Dioxide 26
BUN 11
Creatinine 0.9
Glucose 105 H
Calcium 9.0
Vital Signs:
Vital Signs
Temp Pulse Resp BP Pulse Ox
97.9 F 85 18 139/88 97
09/10/24 23:19 09/10/24 23:19 09/10/24 23:19 09/10/24 23:19 09/10/24 23:19
I&O
09/10/24 09/11/24 09/12/24
06:59 06:59 06:59
Intake Total 1030 / 1030 580 / 580
Output Total 750 / 750 1025 / 1025
Balance 280 / 280 -445 / -445
[2024-09-11] MEDS: BYSTOLIC 10 MG PO (08:34)
[2024-09-11] MEDS: PLAVIX 75 MG PO (08:35)
[2024-09-11] MEDS: FLAGYL 500 MG PO ×2 (08:35→17:01)
[2024-09-11] MEDS: XARELTO 15 MG PO (08:35)
[2024-09-11] MEDS: ZETIA 10 MG PO (08:35)
[2024-09-11] MEDS: PACERONE 200 MG PO (08:35)
[2024-09-11] MEDS: ZOLOFT 100 MG PO (08:35)
[2024-09-11] MEDS: CRESTOR 40 MG PO (08:35)
--- NOTE | 2024-09-11 13:19 | W.PN.ID1 ---
Date of Service
Date of Service: September 11, 2024
Today's Communication
- discussed amiodarone with Dr Hamilton (cardiology) will stop it
- stop tramadol, please consider alternative pain relievers
- start fluconazole 400 mg PO qday, stop micafungin
- start cefdinir 300 mg PO BID and continue metronidazole 500 mg PO TID
- course from 09/09-09/15
Assessment / Plan
Persistent Diverticulitis
Pacemaker dependent
Functionally Single Kidney
DJD
- inflammatory markers nearly normalized
- physical exam resolved abdominal tenderness though there is some pain over the L hip joint similar to previous history
- discussed amiodarone with Dr Hamilton (cardiology) will stop it
- stop tramadol, please consider alternative pain relievers
- start fluconazole 400 mg PO qday, stop micafungin
- start cefdinir 300 mg PO BID and continue metronidazole 500 mg PO TID
- course from 09/09-09/15
- follow with with Dr Hamilton cardiology
Chief Complaint
-: Other (recurrent diverticulitis)
Subjective / Review of Systems
afebrile
bp stable
resolved abdominal pain still with some tenderness directly over the L hip
Vital Signs / Physical Exam
Vital Signs
Vital Signs
Temp Pulse Resp BP Pulse Ox
97.4 F 83 21 134/90 97
09/11/24 07:00 09/11/24 08:35 09/11/24 07:00 09/11/24 08:35 09/11/24 07:00
Physical Exam
Constitutional: No Acute Distress
Cardiovascular: Regular Rate and S1/S2; Negative Murmur or Rub
Pulmonary: Clear and Symmetric; Negative Wheezes or Rales
Gastrointestinal: Soft, Non Tender, Non Distended and Normal Bowel Sounds
Musculoskeletal: Other (some tenderness over the anterior external L hip)
Skin: Warm and Dry; Negative Rash or Jaundice
Objective Data
Lab Data
Lab Results
09/11/24 06:15
09/11/24 06:15
ESR 21 mm/hour (0-20) H 09/10/24 14:05
Estimated Creat Clear 85 ml/min 09/11/24 06:15
Total Bilirubin 1.3 mg/dl (0.2-1.3) 09/07/24 06:41
AST 81 U/L (17-59) H 09/07/24 06:41
ALT 107 U/L (0-50) H 09/07/24 06:41
Alkaline Phosphatase 62 U/L (38-126) 09/07/24 06:41
C-Reactive Protein 17.00 mg/L (0.0-10.00) H 09/10/24 14:05
Most recent labs reviewed.
[2024-09-11] MEDS: ATIVAN 0.5 MG PO (14:40)
[2024-09-11] MEDS: OMNICEF 300 MG PO (14:40)
[2024-09-11] MEDS: DIFLUCAN 400 MG PO (14:40)
[2024-09-11 15:00] VITALS: BP 115/67
[2024-09-11 16:02] VITALS: BP 119/72; PULSE 80; O2SAT 95
--- NOTE | 2024-09-11 16:27 | W.DCSUMMARY ---
Discharge Summary
Discharge Data
Date of Admission: 09/05/24
Date of Discharge: 09/11/24
Total time spent discharging patient (in min): 42
-
Pending Results: No
Hospital Course
79-year-old male with past medical history significant for CAD status post MO, NSTEMI and multiple stents, paroxysmal atrial fibrillation on anticoagulation, BPH, hypertension, hyperlipidemia and ljj-gjdvbxe-fcaobqvrk diabetes mellitus presented to
the emergency department with persistent left lower quadrant abdominal pain after initial diagnosis of acute sigmoid diverticulitis 7 days prior to presentation. Patient reports that he has been having left lower quadrant abdominal pain for about 3
weeks. Initially was diagnosed as hip pain/bursitis and received steroid injections, but about 2 weeks after that without any improvement he came to the emergency department and had a CT scan which showed acute sigmoid diverticulitis. Given patient
had persistent symptoms, he returned to the emergency department. In the emergency department CT of the abdomen pelvis shows rectosigmoid diverticulitis without perforation or abscess. Patient was started on antibiotics. Patient reported pain a few
days into his hospitalization: lumbar back pain with radiculopathy to left hip and thigh. CT imaging was repeated. Colorectal surgery, Infectious Disease, and orthopedics were consulted. Orthopedics recommended that patient follow-up on an
outpatient basis with spine team to discuss potentially undergoing a repeat injections in his back for both hopefully therapeutic as well as diagnostic purposes; it was noted that patient certainly could have multiple pain generators but this would
allow patient to better understand how much of the pain is potentially emanating from his lumbar spine. Micafungin was added to antibiotics. Colorectal surgery discussed with the patient, who was reluctant to consider surgery for diverticulitis at
this time and preferred to pursue further workup and evaluation outpatient.
Discharge Plan
-
Patient Disposition: Home (Routine Discharge)
Discharge Diagnosis/Procedures: Acute uncomplicated sigmoid diverticulitis; severe lumbar facet arthrosis in lower lumbar area
Persistent Diverticulitis
Pacemaker dependent
Functionally Single Kidney
DJD
SEVERE WHITE MATTER LEUKOARAIOSIS in the frontal and parietal lobes, small chronic lacunar infarcts in the right caudate nucleus and right internal capsule and mild diffuse cerebral and cerebellar volume loss on CT Head imaging
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
1.2 cm grade 1-2 anterolisthesis of L5 on S1 secondary to severe facet joint arthrosis, 5 mm grade 1 anterolisthesis of L4 on L5 secondary to severe facet joint arthrosis, mild multilevel lumbar discogenic degenerative disease and severe calcific
atherosclerotic plaque in the abdominal aorta and common iliac arteries.
Orthostatic hypotension
Coronary Artery Disease
Atrial Fibrillation
Abdomen/Pelvis CT Imaging (as per radiologist's report):
'1. Findings consistent with mild sigmoid diverticulitis, unchanged compared to prior CT. No associated abscess formation. Screening colonoscopy is suggested following resolution of the acute event.
2. Severe right renal atrophy. Right kidney measures 1 cm in diameter, unchanged compared to prior study. Left kidney is within normal limits.
3. Mild prostatic enlargement.'
REPEAT Abdomen/Pelvis CT Imaging (as per radiologist's report):
1. Mild acute diverticulitis in the sigmoid colon.
2. Severe diverticulosis in the distal descending colon and proximal sigmoid colon.
3. Severe congenital right renal atrophy.
4. Mild fusiform infrarenal abdominal aortic aneurysm (2.1 cm diameter).
5. Mild to moderate enlargement of the prostate gland which appears to be causing chronic urinary bladder outlet obstruction.
6. Severe lower lumbar facet joint arthrosis.
Diet: Low Residue
Additional Diets: Low residue diet for 2 weeks and resume your regular diet.
Activity: As tolerated
Driving Restrictions: As prior to admission
Bathing Restrictions: None
Activity Restrictions/Additional Instructions:
Please call (by 09/12/23) driver license examiner Dr. Mario's office to get EKG in their office in 2 to 3 days. You also need an appointment with them.
Follow-up on an outpatient basis with spine team to discuss potentially undergoing a repeat injections in his back -- this would be for both hopefully therapeutic as well as diagnostic purposes.
Patient's driver license examiner notified about the potential Fluconazole and Plavix interaction -- outpatient cardiology office will review.
Referrals:
Eduardo Lin MD [Active] - in one to two weeks
Ana Sanchez MD [Active] - in one to two months
Nathan Mario DO [Active] - in less than 1 week (Hospital follow-up)
Abelardo Strickland DO [Family Provider] - in less than 1 week
Additional Discharge Medication Instructions: Fluconazole 400 mg PO Qday, Cefdinir 300 mg PO BID and Metronidazole 500 mg PO TID are all new medications, all to be continued through 09/15/24.
Amiodarone stopped.
Tramadol stopped.
Amoxicillin-Clavulanate stopped.
Prescriptions:
New
polyethylene glycol 3350 17 gram Powder In Packet
17 g PO DAILYPRN PRN (Reason: constipation) Qty: 30 0RF
cefdinir 300 mg Capsule
300 mg PO Q12 Qty: 9 0RF
metronidazole 500 mg Tablet
500 mg PO Q8 Qty: 14 0RF
fluconazole 200 mg Tablet
400 mg PO DAILY Qty: 4 0RF
Rx Instructions:
First dose should be on 09/12/24
fluconazole 200 mg tablet
400 mg PO DAILY Qty: 4 0RF
Rx Instructions:
400 MG DAILY THROUGH 09/15/24 (ANOTHER 4 TABS SENT IN A SEPARATE PRESCRIPTION)
Continued
sertraline 100 MG tablet
100 mg PO DAILY
lorazepam 0.5 mg Tablet
0.5 mg PO Q8HPRN PRN (Reason: anxiety) Qty: 0
rosuvastatin 40 mg Tablet
40 mg PO DAILY
clopidogrel [Plavix] 75 mg tablet
75 mg PO DAILY Qty: 30 2RF
Xarelto 15 mg tablet
15 mg PO DAILY Qty: 30 2RF
ezetimibe [Zetia] 10 mg tablet
10 mg PO DAILY Qty: 30 11RF
tamsulosin 0.4 mg Capsule
0.4 mg PO HS
nebivolol 10 mg Tablet
10 mg PO DAILY
metformin 500 mg tablet
500 mg PO DAILY
levothyroxine [Synthroid] 50 mcg Tablet
50 mcg PO DAILY
Discontinued
amiodarone 200 mg Tablet
200 mg PO DAILY
amoxicillin-pot clavulanate 875-125 mg tablet
1 tab PO BID Qty: 19 0RF
Discharge Orders:
Discharge Patient (As Directed); Ordered 09/11/24
Ordered By: Aureliano Pascal
Discharge Date and Time
Discharge Date/Time: 09/11/24 17:20
Print Language: WELSH
--- NOTE | 2024-09-11 16:29 | CM ---
Chart reviewed for d/c planning and hospital course updates.
CM met w/ pt and spouse bedside who shared they are wanting for pt to d/c today. CM informed attending pt and spouse wanting to d/c today, attending is agreeable for d/c.
Therapy provided RW to pt, CM requested script from attending.
Therapy recommending home PT, pt and spouse declined. Pt's son will transport home
IMM reviewed, pt given copy, copy placed in chart
Plan: Home; no needs
== END 2024-09-11 17:20 | disposition home or self-care (01) | DRG 392 ==
LOC: 4 WEST ACU 01:07
PROVIDERS: Emergency Medicine; Internal Medicine; ADMITTING PHYSICIAN Internal Medicine; ATTENDING PHYSICIAN Hospitalist; CONSULT PHYSICIAN Orthopaedic Surgery; CONSULT PHYSICIAN Student in an Organized Health Care Education/Training Program; CONSULT PHYSICIAN Surgery; EMERGENCY PHYSICIAN Student in an Organized Health Care Education/Training Program; FAMILY PHYSICIAN Internal Medicine
DX: K57.32 Diverticulitis of large intestine without perforation or abscess without bleeding (principal); I67.81 Acute cerebrovascular insufficiency; Q60.0 Renal agenesis, unilateral; M47.819 Spondylosis without myelopathy or radiculopathy, site unspecified; Z95.0 Presence of cardiac pacemaker; Z86.73 Personal history of transient ischemic attack (TIA), and cerebral infarction without residual deficits; I95.1 Orthostatic hypotension; I25.10 Atherosclerotic heart disease of native coronary artery without angina pectoris; N40.0 Benign prostatic hyperplasia without lower urinary tract symptoms; I25.2 Old myocardial infarction; E78.00 Pure hypercholesterolemia, unspecified; I48.0 Paroxysmal atrial fibrillation; I11.0 Hypertensive heart disease with heart failure; I50.9 Heart failure, unspecified; Z95.5 Presence of coronary angioplasty implant and graft; E03.9 Hypothyroidism, unspecified; Z79.890 Hormone replacement therapy; Z79.02 Long term (current) use of antithrombotics/antiplatelets; M54.16 Radiculopathy, lumbar region; Z79.01 Long term (current) use of anticoagulants; Z79.84 Long term (current) use of oral hypoglycemic drugs; K59.00 Constipation, unspecified; F41.9 Anxiety disorder, unspecified; M16.0 Bilateral primary osteoarthritis of hip; Z90.49 Acquired absence of other specified parts of digestive tract; Z87.442 Personal history of urinary calculi; Z79.899 Other long term (current) drug therapy; E11.9 Type 2 diabetes mellitus without complications; I71.43 Infrarenal abdominal aortic aneurysm, without rupture
CPT/HCPCS: 70450; 72100; 73502; 74177; 80048; 80053; 85025; 85027; 85652; 86140; 96365; 96375; 97162; 97167; 97530; 99285; Q9967

== ENCOUNTER 2024-10-25 06:17 | Day surgery (SDC) | payer MEDICARE, SELFPAY ==
[2024-10-25 07:47] LABS: Glucose - Point of Care 112 mg/dl (70-99)
== END 2024-10-25 10:00 | disposition home or self-care (01) ==
LOC: GI 06:17
PROVIDERS: ATTENDING PHYSICIAN Surgery
DX: Z12.11 Encounter for screening for malignant neoplasm of colon (principal); K64.9 Unspecified hemorrhoids; K57.30 Diverticulosis of large intestine without perforation or abscess without bleeding; D12.0 Benign neoplasm of cecum; D12.3 Benign neoplasm of transverse colon; Z86.0100 Personal history of colon polyps, unspecified
CPT/HCPCS: 45380; 88305; 82962; J1335

== ENCOUNTER 2024-10-26 06:00 | Inpatient (IN) | payer MEDICARE, SELFPAY ==
[2024-10-20 11:36] LABS: Hematocrit 43.4 % (39.0-52.0); Hemoglobin 14.5 g/dL (13.0-18.0); Mean Corp Hgb Conc. 33.4 g/dL (33.0-37.0); Mean Corpuscular Hgb 31.9 pg (27.0-31.0); Mean Corpuscular Volume 95.6 fL (80.0-94.0); Mean Platelet Volume 9.7 fL (7.4-10.4); Platelet Count 159 10^3/uL (130-400); Red Blood Cell Count 4.54 10^6/uL (4.70-6.10); Red Cell Dist. Width 14.3 % (11.5-14.5); White Blood Cell Count 4.4 10^3/uL (4.8-10.8)
[2024-10-20 11:39] LABS: INR 1.62; PT 19.4 Sec (11.4-14.6)
[2024-10-20 11:40] LABS: APTT 35.3 Sec (23.4-35.0)
[2024-10-20 12:05] LABS: ALT (SGPT) 128 U/L (0-50); AST (SGOT) 77 U/L (17-59); Albumin 4.4 g/dl (3.5-5.0); Alkaline Phosphatase 99 U/L (38-126); Blood Urea Nitrogen 15 mg/dl (9-20); Calcium 9.7 mg/dl (8.4-10.2); Carbon Dioxide 25 mmol/L (22-30); Chloride 106 mmol/L (98-107); Glucose 126 mg/dl (70-99); Potassium 4.4 mmol/L (3.5-5.1); Sodium 143 mmol/L (135-145); Total Bilirubin 1.3 mg/dl (0.2-1.3); Total Protein 7.2 g/dl (6.3-8.2); eGFR > 60.00
[2024-10-20 13:06] LABS: Glycohemoglobin (HgbA1c) 6.3 % (4.0-5.6)
[2024-10-20 13:53] VITALS: BMI 30.6
[2024-10-26] VITALS (21 sets, daily range): BP systolic 57–133; BP diastolic 60–81; BMI 30.6
[2024-10-26 06:40] LABS: Glucose - Point of Care 118 mg/dl (70-99)
[2024-10-26] MEDS: TYLENOL 1000 MG PO (06:58)
[2024-10-26] MEDS: ENTEREG 12 MG PO (06:59)
[2024-10-26] MEDS: NEURONTIN 600 MG PO (06:59)
[2024-10-26] MEDS: NORMOSOL-R/PLASMALYTE-A 1000 IV ×2 (06:59→13:41)
[2024-10-26] MEDS: HEPARIN 5000 UNITS SC (06:59)
--- NOTE | 2024-10-26 11:03 | W.IMMPOSTOP ---
Addendum entered and electronically signed by Eduardo Lin MD 10/26/24 13:46:
Patient's family was updated after operation in the waiting area.
Original Note:
Surgical Immed Post Op Note
-
Primary Surgeon: Odilia Lin MD
Assisting Surgeon: KAYLYN Crabtree
Pre-op Diagnosis: sigmoid diverticulitis
Post-op Diagnosis: same
Procedure Performed: 1) robotic sigmoidectomy 2) flexible sigmoidoscopy
Anesthesia Type: general plus local
Specimen / Cultures: sigmoid colon
Estimated Blood Loss: 50 cc
Complications: no immediate
Operative Findings: thickening chronic inflammation/adhesions of proximal sigmoid colon
#19 Hilton in pelvis.
Holloway, R ureteral stent and ureteral ICG by Dr. Bess of urology. R stent removed at end of case.
Will send to med surg and consult hospitalist for medical management.
[2024-10-26 11:40] LABS: % Basophils 0.3 % (0-2); % Eosinophils 0.2 % (0-6); % Immature Granulocytes 0.3 % (0-0.5); % Monocytes 4.3 % (1.7-9.3); % Neutrophils 80.9 % (42.2-75.2); Absolute Lymphocytes 0.8 10^3/uL (1.2-3.4); Absolute Monocytes 0.3 10^3/uL (0.1-0.6); Absolute Neutrophils 4.7 10^3/uL (1.4-6.5); Hematocrit 38.5 % (39.0-52.0); Hemoglobin 12.7 g/dL (13.0-18.0); Mean Corpuscular Hgb 31.8 pg (27.0-31.0); Mean Corpuscular Volume 96.5 fL (80.0-94.0); Mean Platelet Volume 9.3 fL (7.4-10.4); Nucleated Red Blood Cells % 0 % (-); Platelet Count 132 10^3/uL (130-400); Red Blood Cell Count 3.99 10^6/uL (4.70-6.10); Red Cell Dist. Width 14.8 % (11.5-14.5); White Blood Cell Count 5.8 10^3/uL (4.8-10.8)
[2024-10-26 11:56] LABS: Blood Urea Nitrogen 12 mg/dl (9-20); Calcium 8.9 mg/dl (8.4-10.2); Carbon Dioxide 23 mmol/L (22-30); Chloride 107 mmol/L (98-107); Estimated Creatinine Clearance 82 ml/min; Glucose 147 mg/dl (70-99); Magnesium 2.3 mg/dl (1.6-2.3); Potassium 4.3 mmol/L (3.5-5.1); Sodium 140 mmol/L (135-145); eGFR > 60.00
[2024-10-26] MEDS: TORADOL 10 MG IV ×3 (12:26→23:29)
--- NOTE | 2024-10-26 13:46 | CON.HOSP ---
Consultation
-
Requesting Provider: Dr. Eduardo Lin
Performing Provider: Dr. Sanchez Fermin
Reason for Consultation: medical management of diabetes hypertension
Family Physician
-
Family Physician: Abelardo Strickland
Chief Complaint
-
Sigmoidectomy
History of Present Illness
79 male history of CAD s/p AR, NSTEMI on multiple stent, paroxysmal atrial fibrillation on Xarelto, BPH, hypertension, hyperlipidemia, klb-aurgyyy-fupnxppaj diabetes mellitus who is s/p robotic sigmoidectomy with flexible sigmoidoscopy by colorectal
surgery along with left urethral stent placement by urology. I saw him in the PACU was waking up from anesthesia. No active complaints at this time. Hemodynamically stable.
Medical History
Allergies / Home Medications
Allergies reflects when Allergies were last updated in [employer].
Home Medications with original date entered in [employer]
Allergy/Medication List:
Allergies
Allergy/AdvReac Type Severity Reaction Status Date / Time
No Known Allergies Allergy Verified 10/26/24 06:23
Home Medications
sertraline 100 mg tablet 100 mg PO DAILY Mental Health/Anxiety 12/22/21
lorazepam 0.5 mg tablet 0.5 mg PO Q8HPRN PRN anxiety ##0 12/30/21
rosuvastatin 40 mg tablet 40 mg PO DAILY High Cholesterol 10/11/23
clopidogrel 75 mg tablet (Plavix) 75 mg PO DAILY Heart disease/condition #30 tabs 10/12/23
ezetimibe 10 mg tablet (Zetia) 10 mg PO DAILY High cholesterol #30 tabs 10/12/23
rivaroxaban 15 mg tablet (Xarelto) 15 mg PO DAILY Heart disease/condition #30 tabs 10/12/23
nebivolol 10 mg tablet 10 mg PO DAILY 02/24/24
tamsulosin 0.4 mg capsule 0.4 mg PO HS 02/24/24
metformin 500 mg tablet 500 mg PO DAILY 05/26/24
levothyroxine 50 mcg tablet (Synthroid) 50 mcg PO DAILY 09/05/24
polyethylene glycol 3350 17 gram oral powder packet 17 g PO DAILYPRN PRN constipation #30 ea 09/07/24
acetaminophen 500 mg tablet 1,000 mg PO BID 10/19/24
metronidazole 500 mg tablet 500 mg PO DIRECTED 10/19/24
neomycin 500 mg tablet 500 mg PO DIRECTED 10/19/24
sodium sul 1.479 gram-potas ch 0.188 gram-magnes sul 0.225 gram tablet (Sutab) 1 tab PO DIRECTED 10/19/24
Review of Systems
-
A 12 point Review of Systems was completed except as noted: Yes
Physical Exam
Vital Signs
Vital Signs
Temp Pulse Resp BP Pulse Ox
98.0 F 70 9 126/70 96
10/26/24 11:15 10/26/24 12:15 10/26/24 12:15 10/26/24 12:15 10/26/24 12:15
Laboratory Results
-
Laboratory Results
10/26/24 11:31
10/26/24 11:31
PT 19.4 Sec (11.4-14.6) H 10/20/24 10:47
INR 1.62 10/20/24 10:47
APTT 35.3 Sec (23.4-35.0) H 10/20/24 10:47
Total Bilirubin 1.3 mg/dl (0.2-1.3) 10/20/24 10:47
AST 77 U/L (17-59) H 10/20/24 10:47
ALT 128 U/L (0-50) H 10/20/24 10:47
Alkaline Phosphatase 99 U/L (38-126) 10/20/24 10:47
Impression / Plan
-
NAD
Scleral Anicteric
DMM
No JVD
CTABL
Left anterior chest wall scar well-healed
RRR, S1/S2
Soft, NT, ND, BS+
XIAO drain with blood small amount
Warm, Dry
AAOx3
Calm
Sigmoid diverticulitis
S/p robotic sigmoidectomy and flexible sigmoidoscopy by colorectal surgery
Follow colorectal surgery recommendations
Left urethral stent placed by urology
Will need continued follow-up by urology as outpatient
Follow renal function
Diabetes
Hold home metformin
Accu-Chek sliding scale carb controlled diet
Goal blood glucose 140-180
Sliding scale insulin may require long and short acting insulin but will reassess
If sugars are not controlled would consider e marketing specialist consult
CAD
Resume Plavix once cleared by surgery/primary team. Continue statin and Zetia beta-maria ines
A-fib
Resume Xarelto once cleared by surgery/primary team. Continue beta-maria ines
[2024-10-26] MEDS: TYLENOL PO ×3 (14:53→20:52)
[2024-10-26 16:54] LABS: Glucose - Point of Care 134 mg/dl (70-99)
[2024-10-26] MEDS: NOVOLOG FLEXPEN-LOW RESISTANCE SC (17:00)
[2024-10-26] MEDS: FLOMAX PO (20:53)
[2024-10-26 21:42] LABS: Glucose - Point of Care 167 mg/dl (70-99)
[2024-10-27] MEDS: TYLENOL PO ×3 (00:33→23:54)
[2024-10-27] MEDS: NORMOSOL-R/PLASMALYTE-A 1000 IV ×2 (01:54→13:46)
[2024-10-27 03:10] VITALS: BP 112/61
[2024-10-27 06:00] VITALS: BMI 30.7
[2024-10-27] MEDS: SYNTHROID 50 MCG PO (06:16)
[2024-10-27] MEDS: TORADOL 10 MG IV ×4 (06:17→23:37)
[2024-10-27 07:06] LABS: Glucose - Point of Care 122 mg/dl (70-99)
[2024-10-27 07:15] VITALS: BP 119/69
[2024-10-27] MEDS: NOVOLOG FLEXPEN-LOW RESISTANCE SC ×3 (07:30→17:34)
[2024-10-27 07:37] LABS: % Basophils 0.1 % (0-2); % Immature Granulocytes 0.4 % (0-0.5); % Lymphocytes 8.4 % (20.5-51.1); % Monocytes 10.6 % (1.7-9.3); % Neutrophils 80.5 % (42.2-75.2); Absolute Lymphocytes 0.6 10^3/uL (1.2-3.4); Absolute Monocytes 0.8 10^3/uL (0.1-0.6); Absolute Neutrophils 6.2 10^3/uL (1.4-6.5); Hematocrit 33.6 % (39.0-52.0); Hemoglobin 11.1 g/dL (13.0-18.0); Mean Corpuscular Hgb 31.8 pg (27.0-31.0); Mean Corpuscular Volume 96.3 fL (80.0-94.0); Mean Platelet Volume 10.1 fL (7.4-10.4); Nucleated Red Blood Cells % 0 % (-); Platelet Count 124 10^3/uL (130-400); Red Blood Cell Count 3.49 10^6/uL (4.70-6.10); Red Cell Dist. Width 14.8 % (11.5-14.5); White Blood Cell Count 7.7 10^3/uL (4.8-10.8)
[2024-10-27 08:09] LABS: Blood Urea Nitrogen 12 mg/dl (9-20); Calcium 8.5 mg/dl (8.4-10.2); Carbon Dioxide 27 mmol/L (22-30); Chloride 106 mmol/L (98-107); Estimated Creatinine Clearance 106 ml/min; Glucose 92 mg/dl (70-99); Magnesium 2.3 mg/dl (1.6-2.3); Potassium 4.1 mmol/L (3.5-5.1); Sodium 140 mmol/L (135-145); eGFR > 60.00
[2024-10-27] MEDS: ZOLOFT 100 MG PO (08:31)
[2024-10-27] MEDS: TYLENOL 650 MG PO ×4 (08:32→21:01)
[2024-10-27] MEDS: ENTEREG 12 MG PO ×2 (08:32→21:01)
[2024-10-27] MEDS: CRESTOR 40 MG PO (08:32)
[2024-10-27] MEDS: ZETIA 10 MG PO (08:32)
[2024-10-27] MEDS: BYSTOLIC 10 MG PO (08:32)
[2024-10-27] MEDS: PROTONIX 40 MG PO (08:32)
[2024-10-27 09:14] LABS: Hepatitis C Antibody Negative (Negative)
[2024-10-27 11:05] VITALS: BP 132/70
--- NOTE | 2024-10-27 11:20 | W.PN.CRS1 ---
Today's Communication / Plan
-
Full liquids
DC Holloway
Lovenox
Out of bed
Assessment/Plan
-
POD#1 1) robotic sigmoidectomy 2) flexible sigmoidoscopy
Vitals normal
WBC 7.7
- Advance diet to full liquids
- DC IV fluids when tolerating
- DC Holloway
- Lovenox for DVT prophylaxis. Teds and SCDs in place.
- Or pathology pending
- Out of bed with physical therapy
- XIAO drain in place, removed before discharge
- On Xarelto and Plavix at home, will plan on restarting on discharge
Subjective Data
Procedure
10/26- 1) robotic sigmoidectomy 2) flexible sigmoidoscopy
Subjective Data
Date of Service: October 27, 2024
Patient states he feels good. He is very hungry. His pain is controlled. He has flatus. He has no complaints.
Objective Data
-
Vital Signs
Temp Pulse Resp BP Pulse Ox
98.5 F 71 16 119/69 98
10/27/24 07:15 10/27/24 07:15 10/27/24 07:15 10/27/24 07:15 10/27/24 07:15
Intake & Output
10/26/24 10/27/24 10/28/24
06:59 06:59 06:59
Intake Total 1965 / 1965
Output Total 1067 / 1067
Balance 899 / 899 -10 10
Intake:
Oral fluids 370 / 370
IV fluids (Total) 1596 / 1596
Normosol 360 / 360
Output:
Drain Output (Total) 117 / 117 10 10
Right Abdomen Len-Gray A 117 / 117
Urine, Holloway 950 / 950
Lab Results
10/27/24 05:32
10/27/24 05:32
Physical Exam
-
General: No Acute Distress and AOx3
Abdomen: Soft, Non Distended and Non Tender
Skin: Warm and Dry
Incision: Clear, Dry, Intact
--- NOTE | 2024-10-27 11:57 | PN.CDI ---
CDI
- -
CDI:
Physician Documentation Request
Admit Date: 10/26/24 06:00
Dear Doctor Riley,
Patient admitted with sigmoid diverticulitis s/p robotic sigmoidectomy.
Hgb levels documented below:
Laboratory Tests
10/20/24 10/26/24 10/27/24
10:47 11:31 05:32
Hgb 14.5 12.7 L 11.1 L
Based on the above, please clarify in your note the diagnosis you are evaluating, monitoring and/or treating?
Acute blood loss anemia
Insignificant abnormal lab findings
Other
Use of terms such as suspected, likely, concern for, or probable (associated with a specific diagnosis that is being evaluated, monitored, or treated as if it exists) are acceptable and can be coded in the inpatient setting, when documented at the
time of discharge.
Thank you,
Lilia PAULINO,RN,CCDS
CDI Specialist
Available via [employer]
Please use your independent medical judgment in providing your response.
[2024-10-27 12:41] LABS: Glucose - Point of Care 137 mg/dl (70-99)
--- NOTE | 2024-10-27 12:55 | CM ---
CM reviewed medical records. CM met with patient and in room. Patient confirmed demographics. Patient lives independently. Patient does not have a history of VN, SNF. Patient relies on a cane for ambulation. Patient is active with his PCP.
Patient has medication coverage.
PLAN: home no needs.
--- NOTE | 2024-10-27 13:51 | W.PN.HOSP.TC ---
Today's Communication/Plan
-
Assessment / Plan
Assessment / Plan
NAD
Scleral Anicteric
DMM
No JVD
CTABL
Left anterior chest wall scar well-healed
RRR, S1/S2
Soft, NT, ND, BS+
XIAO drain with blood small amount
Warm, Dry
AAOx3
Calm
Sigmoid diverticulitis
S/p robotic sigmoidectomy and flexible sigmoidoscopy by colorectal surgery
Drain care per surgery
Advance diet as tolerated
Follow colorectal surgery recommendations
Left urethral stent placed by urology
Will need continued follow-up by urology as outpatient
Remove Holloway, TOV
Follow renal function
Diabetes
Hold home metformin
Accu-Chek sliding scale carb controlled diet
Goal blood glucose 140-180
Sliding scale insulin may require long and short acting insulin but will reassess
If sugars are not controlled would consider retail presentation specialist consult
CAD
Resume Plavix once cleared by surgery/primary team. Continue statin and Zetia beta-maria ines
A-fib
Resume Xarelto once cleared by surgery/primary team. Continue beta-maria ines
DVT prophylaxis per surgery
Anticipated Discharge: 24 - 48 hours
Subjective/Interval History
-
Date of Service: October 27, 2024
Seen and examined.
No new complaints.
No acute overnight.
Asking for regular food and if the diet can be advanced. at bedside
Objective Data
-
Labs:
Laboratory Results
10/27/24
05:32
WBC 7.7
Hgb 11.1 L
Hct 33.6 L
Plt Count 124 L
Sodium 140
Potassium 4.1
Chloride 106
Carbon Dioxide 27
BUN 12
Creatinine 0.7
Glucose 92
Calcium 8.5
Vital Signs:
Vital Signs
Temp Pulse Resp BP Pulse Ox
98.5 F 71 16 132/70 93
10/27/24 11:05 10/27/24 11:05 10/27/24 11:05 10/27/24 11:05 10/27/24 11:05
I&O
10/26/24 10/27/24 10/28/24
06:59 06:59 06:59
Intake Total 1965 / 1965 825 / 825
Output Total 1067 / 1067 210 / 210
Balance 899 / 899 615 / 615
[2024-10-27 15:39] VITALS: BP 119/64; BP 119/76; PULSE 75
[2024-10-27 15:47] VITALS: BP 112/52
[2024-10-27 17:11] LABS: Glucose - Point of Care 100 mg/dl (70-99)
[2024-10-27] MEDS: LOVENOX 40 MG SC (17:34)
[2024-10-27] MEDS: FLOMAX 0.4 MG PO (21:01)
--- NOTE | 2024-10-27 21:26 | PTCARENOTE ---
Pt voided @ this time with the scheduled time after hernández d/c
[2024-10-27 21:33] LABS: Glucose - Point of Care 119 mg/dl (70-99)
[2024-10-27 23:46] VITALS: BP 127/78
[2024-10-28] MEDS: DILAUDID 0.25 MG IV (00:46)
[2024-10-28] MEDS: ATIVAN 0.5 MG PO ×2 (00:46→21:43)
[2024-10-28] MEDS: TYLENOL PO (04:43)
[2024-10-28] MEDS: TORADOL 10 MG IV ×3 (06:03→17:21)
[2024-10-28] MEDS: SYNTHROID 50 MCG PO (06:03)
[2024-10-28 06:27] VITALS: BMI 31.5
[2024-10-28 07:10] VITALS: BP 135/81
[2024-10-28 07:25] LABS: % Basophils 0.2 % (0-2); % Eosinophils 2.3 % (0-6); % Immature Granulocytes 0.4 % (0-0.5); % Lymphocytes 26.3 % (20.5-51.1); % Monocytes 11.7 % (1.7-9.3); % Neutrophils 59.1 % (42.2-75.2); Absolute Eosinophils 0.1 10^3/uL (0-0.7); Absolute Lymphocytes 1.2 10^3/uL (1.2-3.4); Absolute Monocytes 0.6 10^3/uL (0.1-0.6); Absolute Neutrophils 2.8 10^3/uL (1.4-6.5); Hematocrit 32.2 % (39.0-52.0); Hemoglobin 10.7 g/dL (13.0-18.0); Mean Corp Hgb Conc. 33.2 g/dL (33.0-37.0); Mean Corpuscular Hgb 31.8 pg (27.0-31.0); Mean Corpuscular Volume 95.8 fL (80.0-94.0); Mean Platelet Volume 9.7 fL (7.4-10.4); Nucleated Red Blood Cells % 0 % (-); Platelet Count 114 10^3/uL (130-400); Red Blood Cell Count 3.36 10^6/uL (4.70-6.10); Red Cell Dist. Width 14.7 % (11.5-14.5); White Blood Cell Count 4.7 10^3/uL (4.8-10.8)
[2024-10-28] MEDS: NOVOLOG FLEXPEN-LOW RESISTANCE SC ×3 (07:30→17:12)
[2024-10-28 08:23] LABS: Glucose - Point of Care 104 mg/dl (70-99)
[2024-10-28] MEDS: BYSTOLIC 10 MG PO (09:16)
[2024-10-28] MEDS: PROTONIX 40 MG PO (09:16)
[2024-10-28] MEDS: ZETIA 10 MG PO (09:17)
[2024-10-28] MEDS: ENTEREG 12 MG PO ×2 (09:17→21:21)
[2024-10-28] MEDS: ZOLOFT 100 MG PO (09:17)
[2024-10-28] MEDS: CRESTOR 40 MG PO (09:17)
[2024-10-28] MEDS: TYLENOL 650 MG PO ×4 (09:18→21:21)
--- NOTE | 2024-10-28 11:05 | W.PN.CRS1 ---
Today's Communication / Plan
-
resume xarelto
advance to LRD
Assessment/Plan
-
79 yo male with a h/o sigmoid diverticulitis now POD#2 1) robotic sigmoidectomy 2) flexible sigmoidoscopy
AFVSS
Labs stable
Passing flatus/stool
- Advance diet to LRD
- Resume Xarelto tonight and follow labs. If h/h stable, will resume plavix tomorrow.
- Teds and SCDs in place.
- Or pathology pending
- Out of bed with physical therapy
- XIAO drain in place, removed before discharge
- Multimodal analgesics, will add PO options
Subjective Data
Procedure
10/26- 1) robotic sigmoidectomy 2) flexible sigmoidoscopy
Subjective Data
Date of Service: October 28, 2024
Pt seen and examined at bedside with Dr. Philip. Chatman n/v. Tolerating full liquids. Pain improving day by day. Passing flatus and some loose stools. Voiding well s/p hernández removal.
Objective Data
-
Vital Signs
Temp Pulse Resp BP Pulse Ox
98.3 F 88 16 135/81 94
10/28/24 07:10 10/28/24 07:10 10/28/24 07:10 10/28/24 09:16 10/28/24 07:10
Intake & Output
10/27/24 10/28/24 10/29/24
06:59 06:59 06:59
Intake Total 1965 / 1965 3025 / 3025
Output Total 1067 / 1067 1830 / 1830
Balance 899 / 899 1195 / 1195
Intake:
Oral fluids 370 / 370 2145 / 2145
IV fluids (Total) 1596 / 1596 880 / 880
Normosol 360 / 360
Output:
Drain Output (Total) 105 / 105
Right Abdomen Len-Gray A 105 / 105
Urine, Hernández 950 / 950 500 / 500
Urine, Voided 1225 / 1225
Lab Results
10/28/24 05:46
10/27/24 05:32
Physical Exam
-
General: No Acute Distress and AOx3
Abdomen: Soft, Non Distended and Non Tender
Skin: Warm and Dry
Incision: Clear, Dry, Intact
[2024-10-28 12:37] LABS: Glucose - Point of Care 111 mg/dl (70-99)
[2024-10-28 15:20] VITALS: BP 113/63
[2024-10-28 17:06] LABS: Glucose - Point of Care 122 mg/dl (70-99)
[2024-10-28] MEDS: XARELTO 15 MG PO (17:20)
[2024-10-28] MEDS: FLOMAX 0.4 MG PO (21:21)
[2024-10-28 21:35] LABS: Glucose - Point of Care 118 mg/dl (70-99)
[2024-10-28 23:20] VITALS: BP 130/88
[2024-10-29] MEDS: TORADOL 10 MG IV ×2 (00:23→06:17)
[2024-10-29] MEDS: TYLENOL PO ×4 (04:07→17:12)
[2024-10-29 04:37] LABS: Hematocrit 31.6 % (39.0-52.0); Hemoglobin 10.8 g/dL (13.0-18.0); Mean Corp Hgb Conc. 34.2 g/dL (33.0-37.0); Mean Corpuscular Volume 93.5 fL (80.0-94.0); Mean Platelet Volume 9.5 fL (7.4-10.4); Platelet Count 108 10^3/uL (130-400); Red Blood Cell Count 3.38 10^6/uL (4.70-6.10); Red Cell Dist. Width 14.5 % (11.5-14.5); White Blood Cell Count 4.6 10^3/uL (4.8-10.8)
[2024-10-29 05:00] LABS: Blood Urea Nitrogen 11 mg/dl (9-20); Calcium 8.5 mg/dl (8.4-10.2); Carbon Dioxide 26 mmol/L (22-30); Chloride 111 mmol/L (98-107); Estimated Creatinine Clearance > 125 ml/min; Glucose 110 mg/dl (70-99); Potassium 4.2 mmol/L (3.5-5.1); Sodium 142 mmol/L (135-145); eGFR > 60.00
[2024-10-29] MEDS: SYNTHROID 50 MCG PO (06:17)
[2024-10-29 06:18] VITALS: BMI 30.7
[2024-10-29 07:10] VITALS: BP 129/82
[2024-10-29 08:19] LABS: Glucose - Point of Care 100 mg/dl (70-99)
[2024-10-29] MEDS: NOVOLOG FLEXPEN-LOW RESISTANCE SC ×2 (08:34→17:13)
[2024-10-29] MEDS: ZETIA 10 MG PO (08:45)
[2024-10-29] MEDS: TYLENOL 650 MG PO ×3 (08:46→23:00)
[2024-10-29] MEDS: PROTONIX 40 MG PO (08:46)
[2024-10-29] MEDS: ZOLOFT 100 MG PO (08:46)
[2024-10-29] MEDS: CRESTOR 40 MG PO (08:46)
[2024-10-29] MEDS: BYSTOLIC 10 MG PO (08:46)
[2024-10-29] MEDS: PLAVIX 75 MG PO (08:47)
[2024-10-29] MEDS: ENTEREG 12 MG PO ×2 (08:48→19:39)
--- NOTE | 2024-10-29 09:18 | W.PN.CRS1 ---
Today's Communication / Plan
-
Dispo planning
Assessment/Plan
-
79 yo male with a h/o sigmoid diverticulitis now POD#3 1) robotic sigmoidectomy 2) flexible sigmoidoscopy
AFVSS
Labs stable
Passing flatus/stool. Tolerating diet.
- Continue LRD
- Continue Xarelto, resume Plavix
- Teds and SCDs in place.
- Or pathology pending
- Out of bed with physical therapy
- XIAO drain removed at bedside
- Multimodal analgesics
Appreciate hospitalist, discussed case via TT. Ready for d/c from medical and surgical standpoints
Subjective Data
Procedure
10/26- 1) robotic sigmoidectomy 2) flexible sigmoidoscopy
Subjective Data
Date of Service: October 29, 2024
Patient seen and examined at bedside with Dr. Philip. Chatman n/v. Tolerating diet. Passing loose stools and flatus. Minimal discomfort.
Objective Data
-
Vital Signs
Temp Pulse Resp BP Pulse Ox
98.1 F 90 16 129/82 95
10/29/24 07:10 10/29/24 07:10 10/29/24 07:10 10/29/24 07:10 10/29/24 07:10
Intake & Output
10/28/24 10/29/24 10/30/24
06:59 06:59 06:59
Intake Total 3025 / 3025 960 / 960
Output Total 1830 / 1830 300 / 300
Balance 1195 / 1195 660 / 660
Intake:
Oral fluids 2145 / 2145 960 / 960
IV fluids (Total) 880 / 880
Output:
Drain Output (Total) 105 / 105 100 / 100
Right Abdomen Len-Gray A 105 / 105 100 / 100
Urine, Holloway 500 / 500
Urine, Voided 1225 / 1225 200 / 200
Other:
Number of approximated MODERATE 2
amounts of urine
Lab Results
10/29/24 04:12
10/29/24 04:12
Physical Exam
-
General: No Acute Distress and AOx3
Abdomen: Soft, Non Distended, Non Tender and Other (XIAO with SSF (removed))
Skin: Warm and Dry
Incision: Clear, Dry, Intact
[2024-10-29 11:45] LABS: Glucose - Point of Care 165 mg/dl (70-99)
[2024-10-29] MEDS: TORADOL IV (13:31)
[2024-10-29] MEDS: NOVOLOG FLEXPEN-LOW RESISTANCE 1 UNITS SC (13:37)
[2024-10-29] MEDS: ROXICODONE 5 MG PO (13:42)
--- NOTE | 2024-10-29 14:21 | W.PN.SURGUPD ---
Surgical Update
Surgical Update
Patient with several bloody BM's since evaluation this am.
Discharge cancelled, will continue further inpatient monitoring.
Hold toradol, xarelto and plavix, and follow CBC in AM
[2024-10-29 15:25] VITALS: BP 120/75
[2024-10-29 17:15] LABS: Glucose - Point of Care 105 mg/dl (70-99)
[2024-10-29 21:32] LABS: Glucose - Point of Care 112 mg/dl (70-99)
[2024-10-29] MEDS: FLOMAX 0.4 MG PO (22:34)
[2024-10-29 23:20] VITALS: BP 146/91
[2024-10-30] MEDS: TYLENOL 650 MG PO ×6 (03:04→23:06)
[2024-10-30] MEDS: SYNTHROID 50 MCG PO (05:09)
[2024-10-30 06:00] VITALS: BMI 30.9
[2024-10-30 07:12] VITALS: BP 145/80
[2024-10-30 08:01] LABS: Glucose - Point of Care 121 mg/dl (70-99)
[2024-10-30 08:45] LABS: Hematocrit 34.9 % (39.0-52.0); Hemoglobin 11.7 g/dL (13.0-18.0); Mean Corp Hgb Conc. 33.5 g/dL (33.0-37.0); Mean Corpuscular Hgb 32.2 pg (27.0-31.0); Mean Corpuscular Volume 96.1 fL (80.0-94.0); Mean Platelet Volume 9.6 fL (7.4-10.4); Platelet Count 134 10^3/uL (130-400); Red Blood Cell Count 3.63 10^6/uL (4.70-6.10); Red Cell Dist. Width 14.6 % (11.5-14.5); White Blood Cell Count 4.9 10^3/uL (4.8-10.8)
[2024-10-30] MEDS: BYSTOLIC 10 MG PO (08:58)
[2024-10-30] MEDS: NOVOLOG FLEXPEN-LOW RESISTANCE SC ×3 (08:58→18:00)
[2024-10-30] MEDS: CRESTOR 40 MG PO (08:59)
[2024-10-30] MEDS: ZOLOFT 100 MG PO (08:59)
[2024-10-30] MEDS: PROTONIX 40 MG PO (08:59)
[2024-10-30] MEDS: ENTEREG 12 MG PO ×2 (08:59→20:48)
[2024-10-30] MEDS: ZETIA 10 MG PO (08:59)
--- NOTE | 2024-10-30 09:13 | W.PN.HOSP.TC ---
Today's Communication/Plan
-
Hg stable, follow up further CRS recs. possible DC today
OK to resume metformin on DC
Assessment / Plan
Assessment / Plan
NAD
Scleral Anicteric
DMM
No JVD
CTABL
Left anterior chest wall scar well-healed
RRR, S1/S2
Soft, NT, ND, BS+
XIAO drain with blood small amount
Warm, Dry
AAOx3
Calm
S/p robotic sigmoidectomy and flexible sigmoidoscopy by colorectal surgery 10/26/24
-management per CRS
-DC delayed 2/2 bloody stools; Hg stable this AM
Left urethral stent placed by urology
Will need continued follow-up by urology as outpatient
Remove Holloway, TOV
Follow renal function
Diabetes
A1c 6.3%
Hold home metformin
ISS
-OK to resume home metformin on DC
CAD
Hx PCI (2001, 2014, 2019)
Resume Plavix once cleared by surgery/primary team. Continue statin and Zetia beta-maria ines
A-fib, Paroxysmal
Resume Xarelto once cleared by surgery/primary team. Continue beta-maria ines
DVT prophylaxis per surgery
Anticipated Discharge: Within 24 hours
Subjective/Interval History
-
Date of Service: October 30, 2024
no further bleeding overnight
Objective Data
-
Labs:
Laboratory Results
10/30/24
07:08
WBC 4.9
Hgb 11.7 L
Hct 34.9 L
Plt Count 134 D
Vital Signs:
Vital Signs
Temp Pulse Resp BP Pulse Ox
97.7 F 89 16 145/80 96
10/30/24 07:12 10/30/24 07:12 10/30/24 07:12 10/30/24 07:12 10/30/24 07:12
I&O
10/29/24 10/30/24 10/31/24
06:59 06:59 06:59
Intake Total 960 / 960 800 / 800
Output Total 300 / 300 800 / 800 500 / 500
Balance 660 / 660 0 / 0 -500 / -500
Review of Systems
-
History Source: Patient
All other systems: Reviewed and negative
Physical Exam
-
General: No Apparent Distress
HEENT: Moist Mucous Membranes
Respiratory: Non Labored Respirations; Negative Accessory Resp Muscle Use
Cardiac: Regular Rhythm and S1/S2
GI: Soft, Nontender, Nondistended and Normal Bowel Sounds
Neuro: AO x 3
Psych: Calm
Data Reviewed
-
Diagnostic Radiology: Report Reviewed by me
Labs: Labs Reviewed by me
--- NOTE | 2024-10-30 09:39 | W.PN.CRS1 ---
Addendum entered and electronically signed by Eduardo Lin MD 10/30/24 11:08:
Of note, patient's hemoglobin drift is due to acute blood loss anemia but seems to be stabilizing.
Original Note:
Today's Communication / Plan
-
Lovenox.
Continue other measures.
Assessment/Plan
-
POD 4.
1. tolerating LRD.
2. labs fine.
3. ?anastomotic ooze. Hg ok this am. Resume Lovenox for now. Hold Plavix and Xarelto--if does well today and Hg ok tomorow am--can resume both tomorrow.
Subjective Data
Procedure
10/26- 1) robotic sigmoidectomy 2) flexible sigmoidoscopy
Subjective Data
Date of Service: October 30, 2024
Had Blood in BMs yesteday. No BMs overnight. No complaints.
Objective Data
-
Vital Signs
Temp Pulse Resp BP Pulse Ox
97.7 F 89 16 145/80 96
10/30/24 07:12 10/30/24 07:12 10/30/24 07:12 10/30/24 07:12 10/30/24 07:12
Intake & Output
10/29/24 10/30/24 10/31/24
06:59 06:59 06:59
Intake Total 960 / 960 800 / 800
Output Total 300 / 300 800 / 800 500 / 500
Balance 660 / 660 0 / 0 -500 / -500
Intake:
Oral fluids 960 / 960 800 / 800
Output:
Drain Output (Total) 100 / 100
Right Abdomen Len-Gray A 100 / 100
Urine, Voided 200 / 200 800 / 800 500 / 500
Other:
Number of approximated MODERATE 2 1
amounts of urine
Lab Results
10/30/24 07:08
10/29/24 04:12
Physical Exam
-
General: No Acute Distress
Chest: Clear
Cardiovascular: Regular Rate & Rhythm
Abdomen: Soft, Non Distended and Tender (mild incisional)
Extremities: No Calf Tenderness
Incision: Clear, Dry, Intact and No Skin Erythema
--- NOTE | 2024-10-30 10:16 | CM ---
CM reviewed medical records. Plan for discharge possible 10/31. No further needs noted on discharge. CM will continue to follow as needed.
PLAN: home with no needs.
[2024-10-30 10:40] VITALS: BP 117/76; PULSE 96
[2024-10-30 12:06] LABS: Glucose - Point of Care 150 mg/dl (70-99)
[2024-10-30 15:00] VITALS: BP 120/76
[2024-10-30 17:17] LABS: Glucose - Point of Care 105 mg/dl (70-99)
[2024-10-30] MEDS: LOVENOX 40 MG SC (17:57)
[2024-10-30] MEDS: FLOMAX 0.4 MG PO (21:10)
[2024-10-30 21:22] LABS: Glucose - Point of Care 123 mg/dl (70-99)
[2024-10-30 23:01] VITALS: BP 135/80
[2024-10-30] MEDS: BENADRYL 25 MG PO (23:06)
[2024-10-31] MEDS: TYLENOL 650 MG PO ×3 (03:15→13:51)
[2024-10-31 04:07] VITALS: BMI 30.7
[2024-10-31] MEDS: SYNTHROID 50 MCG PO (05:01)
[2024-10-31 07:00] VITALS: BP 137/87
[2024-10-31 07:11] LABS: Hematocrit 32.3 % (39.0-52.0); Hemoglobin 10.9 g/dL (13.0-18.0); Mean Corp Hgb Conc. 33.7 g/dL (33.0-37.0); Mean Corpuscular Hgb 32.1 pg (27.0-31.0); Mean Platelet Volume 9.4 fL (7.4-10.4); Platelet Count 139 10^3/uL (130-400); Red Cell Dist. Width 14.3 % (11.5-14.5); White Blood Cell Count 4.4 10^3/uL (4.8-10.8)
[2024-10-31 07:42] LABS: Glucose - Point of Care 119 mg/dl (70-99)
[2024-10-31 08:26] VITALS: BP 137/87
[2024-10-31] MEDS: NOVOLOG FLEXPEN-LOW RESISTANCE SC (08:40)
[2024-10-31] MEDS: PROTONIX 40 MG PO (08:41)
[2024-10-31] MEDS: BYSTOLIC 10 MG PO (08:41)
[2024-10-31] MEDS: ZETIA 10 MG PO (08:41)
[2024-10-31] MEDS: CRESTOR 40 MG PO (08:41)
[2024-10-31] MEDS: ZOLOFT 100 MG PO (08:41)
[2024-10-31] MEDS: ENTEREG 12 MG PO (08:41)
--- NOTE | 2024-10-31 08:49 | W.PN.CRS1 ---
Today's Communication / Plan
-
Resume blood thinners and discharge.
Assessment/Plan
-
POD 5.
1. No obvious bleeding overnight although had no BMs. Hemoglobin stable at 10.9. Will resume Plavix and Xarelto. Suggested staying another 24 hours to look for bleeding and a hemoglobin recheck tomorrow morning. However, the patient is adamant
that he leaves today. I discussed the potential for bleeding at home over the next 24 to 48 hours and even readmission through the ER. He is willing to take this risk.
2. Vital stable. Overall doing well.
3. Discharge.
Subjective Data
Procedure
10/26- 1) robotic sigmoidectomy 2) flexible sigmoidoscopy
Subjective Data
Date of Service: October 31, 2024
No complaints. Denies BMs yesterday. Tolerating p.o.
Objective Data
-
Vital Signs
Temp Pulse Resp BP Pulse Ox
97.8 F 87 15 137/87 95
10/31/24 07:00 10/31/24 07:00 10/31/24 07:00 10/31/24 07:00 10/31/24 07:00
Intake & Output
10/30/24 10/31/24 11/01/24
06:59 06:59 06:59
Intake Total 800 / 800 2099 / 2099
Output Total 800 / 800 500 / 500
Balance 0 / 0 1600 / 1600
Intake:
Oral fluids 800 / 800 2099 / 2100
Output:
Urine, Voided 800 / 800 500 / 500
Other:
Number of approximated SMALL 1
amounts of urine
Number of approximated MODERATE 1 2
amounts of urine
Lab Results
10/31/24 06:44
10/29/24 04:12
Physical Exam
-
General: No Acute Distress
Chest: Clear
Cardiovascular: Regular Rate & Rhythm
Abdomen: Soft and Non Tender
Extremities: No Edema and No Calf Tenderness
Incision: Clear, Dry, Intact and No Skin Erythema
--- NOTE | 2024-10-31 08:52 | W.DS.TRANS ---
DC Summary - [employer]airer
-
Discharge Instructions:
Sleep Apnea Risk Intermediate
Discharge Diagnosis/Procedures 1) robotic sigmoidectomy 2) flexible
sigmoidoscopy
Diet Low Residue
Activity No strenuous activity
Additional Activity No lifting over 10lbs (gallon of milk)
Driving Restrictions Not until seen by your Dr
Bathing Restrictions OK to Shower
Wound Care Allow glue to naturally fall off. Do not pick at
incisions.
Cover prior drain site with 4x4 gauze and tape,
change daily and as needed. Okay to leave open
to air when sealed over.
Instructions: Low-fiber diet
Stand-Alone Forms:
Changes to Home Medications: Yes
Discharge Medications:
DC Medications w/original date entered in [employer]
sertraline 100 mg tablet 100 mg PO DAILY Mental Health/Anxiety 12/22/21
lorazepam 0.5 mg tablet 0.5 mg PO Q8HPRN PRN anxiety ##0 12/30/21
rosuvastatin 40 mg tablet 40 mg PO DAILY High Cholesterol 10/11/23
clopidogrel 75 mg tablet (Plavix) 75 mg PO DAILY Heart disease/condition #30 tabs 10/12/23
ezetimibe 10 mg tablet (Zetia) 10 mg PO DAILY High cholesterol #30 tabs 10/12/23
rivaroxaban 15 mg tablet (Xarelto) 15 mg PO DAILY Heart disease/condition #30 tabs 10/12/23
nebivolol 10 mg tablet 10 mg PO DAILY Blood Pressure 02/24/24
tamsulosin 0.4 mg capsule 0.4 mg PO HS Urinary Issue 02/24/24
metformin 500 mg tablet 500 mg PO DAILY Diabetes 05/26/24
levothyroxine 50 mcg tablet (Synthroid) 50 mcg PO DAILY Thyroid 09/05/24
acetaminophen 500 mg tablet 1,000 mg PO BID Pain 10/19/24
oxycodone 5 mg tablet 5 mg PO Q4HPRN PRN breakthrough/severe pain #15 tabs 10/29/24
Home Medication Changes
oxycodone 5 mg tablet 5 mg PO Q4HPRN PRN breakthrough/severe pain #15 tabs 10/29/24
Pending Results: Yes (pathology)
--- NOTE | 2024-10-31 09:05 | CM ---
Cm reviewed medical records. No needs noted for discharge to home.
PLAN: home no needs.
--- NOTE | 2024-10-31 09:55 | W.PN.HOSP.TC ---
Today's Communication/Plan
-
see plan
Assessment / Plan
Assessment / Plan
S/p robotic sigmoidectomy and flexible sigmoidoscopy by colorectal surgery 10/26/24
-management per CRS
-DC delayed 2/2 bloody stools; Hg stable this AM; no further bleeding
-blood thinners resumed with plans for DC per surgery
Left urethral stent placed by urology
Will need continued follow-up by urology as outpatient
hernández removed
Diabetes
A1c 6.3%
Hold home metformin
ISS
-OK to resume home metformin on DC
CAD
Hx PCI (2001, 2014, 2019)
Plavix resumed
Continue statin and Zetia beta-maria ines
A-fib, Paroxysmal
Xarelto resumed
Continue beta-maria ines
DVT prophylaxis per surgery
Anticipated Discharge: Today
Subjective/Interval History
-
Date of Service: October 31, 2024
feeling well
no bleeding overnight
blood thinners resumed this morning
Objective Data
-
Labs:
Laboratory Results
10/31/24
06:44
WBC 4.4 L
Hgb 10.9 L
Hct 32.3 L
Plt Count 139
Vital Signs:
Vital Signs
Temp Pulse Resp BP Pulse Ox
97.8 F 87 15 137/87 95
10/31/24 07:00 10/31/24 07:00 10/31/24 07:00 10/31/24 07:00 10/31/24 07:00
I&O
10/30/24 10/31/24 11/01/24
06:59 06:59 06:59
Intake Total 800 / 800 2100 / 2100
Output Total 800 / 800 500 / 500
Balance 0 / 0 1600 / 1600
Review of Systems
-
History Source: Patient
All other systems: Reviewed and negative
Physical Exam
-
General: No Apparent Distress
HEENT: Moist Mucous Membranes
Respiratory: Non Labored Respirations; Negative Accessory Resp Muscle Use
Cardiac: Regular Rhythm and S1/S2
GI: Soft, Nontender, Nondistended and Normal Bowel Sounds
Neuro: AO x 3
Psych: Calm
Data Reviewed
-
Diagnostic Radiology: Report Reviewed by me
Labs: Labs Reviewed by me
[2024-10-31] MEDS: PLAVIX 75 MG PO (10:12)
[2024-10-31] MEDS: XARELTO 15 MG PO (11:11)
[2024-10-31] MEDS: NOVOLOG FLEXPEN-LOW RESISTANCE 1 UNITS SC (13:50)
[2024-10-31 15:06] VITALS: BP 117/76
[2024-11-01 07:48] LABS: Glucose - Point of Care 166 mg/dl (70-99)
== END 2024-10-31 15:45 | disposition home or self-care (01) | DRG 330 ==
LOC: 2 SOUTH 06:00
PROVIDERS: Physician Assistant; Registered Nurse; Specialist; ADMITTING PHYSICIAN Surgery; FAMILY PHYSICIAN Internal Medicine; OTHER PHYSICIAN Hospitalist
PROC: 8E0W4CZ Robotic Assisted Procedure of Trunk Region, Percutaneous Endoscopic Approach (ICD-10-PCS; 2024-10-26)
PROC: 3E0K8KZ Introduction of Other Diagnostic Substance into Genitourinary Tract, Via Natural or Artificial Opening Endoscopic (ICD-10-PCS; 2024-10-26)
PROC: 0DJD8ZZ Inspection of Lower Intestinal Tract, Via Natural or Artificial Opening Endoscopic (ICD-10-PCS; 2024-10-26)
PROC: 0T778DZ Dilation of Left Ureter with Intraluminal Device, Via Natural or Artificial Opening Endoscopic (ICD-10-PCS; 2024-10-26)
PROC: 0DTN4ZZ Resection of Sigmoid Colon, Percutaneous Endoscopic Approach (ICD-10-PCS; 2024-10-26)
DX: K57.32 Diverticulitis of large intestine without perforation or abscess without bleeding (principal); D62 Acute posthemorrhagic anemia; K92.1 Melena; E11.9 Type 2 diabetes mellitus without complications; I10 Essential (primary) hypertension; N40.0 Benign prostatic hyperplasia without lower urinary tract symptoms; E78.5 Hyperlipidemia, unspecified; I48.0 Paroxysmal atrial fibrillation; I25.10 Atherosclerotic heart disease of native coronary artery without angina pectoris; N26.1 Atrophy of kidney (terminal); I25.2 Old myocardial infarction; Z95.5 Presence of coronary angioplasty implant and graft; Z79.01 Long term (current) use of anticoagulants; Z79.890 Hormone replacement therapy; Z79.84 Long term (current) use of oral hypoglycemic drugs
CPT/HCPCS: 88307; 36415; 80048; 80053; 82962; 83036; 83735; 85025; 85027; 85610; 85730; 86803; 86850; 86900; 86901; 97116; 97162; 97530; J1335

== ENCOUNTER → 2025-03-29 13:35 | Outpatient (REF) | payer MEDICARE, SELFPAY | LOC: RAD 13:35 | PROVIDERS: ATTENDING PHYSICIAN Surgery; FAMILY PHYSICIAN Internal Medicine | DX: R10.9 Unspecified abdominal pain (principal) | CPT/HCPCS: 74177; Q9967 ==